=== PATIENT | female | born 1950 | race Caucasian/White ===

== ENCOUNTER → 2023-01-28 14:39 | Outpatient (CLI) | payer MEDICARE, OTHER, SELFPAY | PROVIDERS: PCP Student in an Organized Health Care Education/Training Program; Referring Provider Internal Medicine Critical Care Medicine; Visit Provider Internal Medicine Critical Care Medicine | DX: J44.9 Chronic obstructive pulmonary disease, unspecified (principal); F17.210 Nicotine dependence, cigarettes, uncomplicated; J98.8 Other specified respiratory disorders | CPT/HCPCS: 94060; 94726; 94729 ==

== ENCOUNTER 2023-06-21 16:22 | Emergency (ER) | payer MEDICARE, OTHER, SELFPAY ==
[2023-06-21 16:37] VITALS: BP 138/86; PULSE 86; RESP 20; TEMP 36.8; O2SAT 99; BMI 37.0
[2023-06-21 17:02] LABS: Bilirubin Urine UA NEGATIVE (NEGATIVE); Color Urine UA YELLOW; Glucose Urine UA NEGATIVE (Negative); Ketones Urine UA NEGATIVE (NEGATIVE); Leukocyte Esterase Urine UA 2+ (NEGATIVE); Nitrite Urine UA POSITIVE (Negative); Occult Blood Urine UA NEGATIVE (Negative); Protein Urine UA NEGATIVE (Negative)
[2023-06-21 17:03] LABS: Appearance Urine UA CLOUDY; pH Urine UA 5.5 (4.5-8.0)
[2023-06-21 17:10] LABS: Bacteria Urine Many (>30); Culture Indicated Urine Specimen Cultured; RBC Urine None Seen (0-5/HPF); Squamous Epithelial Cell Urine None Seen (0-5/HPF); WBC Urine 10-30/HPF (0-5/HPF)
[2023-06-21 17:10] LABS: Add Manual Diff / Slide Review NO; Basophils Absolute Auto 100 /uL (0-100); Basophils Percent Auto 1.5 % (0-2); Eosinophils Absolute Auto 400 /uL (0-450); Eosinophils Percent Auto 4.7 % (2-4); Hematocrit 37.6 % (36-46); Hemoglobin 12.9 g/dL (12.0-16.0); Lymphocytes Absolute Auto 1800 /uL (1100-4500); Lymphocytes Percent Auto 22.3 % (25-40); Mean Corpuscular HGB Conc 34.5 % (30-36); Mean Corpuscular Hemoglobin 29.6 PG (26-34); Mean Corpuscular Volume 85.9 fL (80-100); Monocytes Absolute Auto 700 /uL (0-900); Monocytes Percent Auto 8.2 % (3-14); Neutrophils Absolute Auto 5200 /uL (1500-7000); Neutrophils Percent Auto 63.3 % (50-75); Platelet Count 129 X10^3/uL (150-400); Red Blood Cell Count 4.37 X10^6/uL (4.0-5.2); Red Cell Distribution Width 24.3 % (11.6-14.8); White Blood Cell Count 8.2 X10^3/uL (4.5-11.0)
[2023-06-21 17:24] LABS: Anisocytosis 3+
[2023-06-21 17:25] LABS: Microcytosis 1+
[2023-06-21 18:03] LABS: Ammonia (NH3) 22 umol/L (9-30)
[2023-06-21 18:07] LABS: Alanine Aminotransferase 29 IU/L (<35); Albumin 4.5 g/dL (3.5-5.0); Albumin Globulin Ratio 1.1 (1.0-2.8); Alkaline Phosphatase 99 U/L (38-126); Aspartate Aminotransferase 36 IU/L (14-36); BUN Creatinine Ratio 24.3 (6-22); Bilirubin Total 0.7 mg/dL (0.2-1.3); Blood Urea Nitrogen 37 mg/dL (7-17); Calcium 10.2 mg/dL (8.4-10.2); Carbon Dioxide 24 mmol/L (22-32); Chloride 99 mmol/L (98-107); Estimated Glomerular Filt Rate 36 mL/min (>60); Globulin 4.1 g/dL (1.7-4.1); Glucose 161 mg/dL (80-110); HEMOLYSIS < 15 (0-50); Lipase 139 U/L (23-300); Sodium 134 mmol/L (137-145); Total Protein 8.6 g/dL (6.3-8.2)
[2023-06-21 18:11] LABS: Potassium 5.4 mmol/L (3.4-5.1)
== END 2023-06-21 19:09 | disposition left against medical advice (07) ==
PROVIDERS: Emergency Medicine; Emergency Provider Emergency Medicine; PCP Student in an Organized Health Care Education/Training Program
DX: R10.9 Unspecified abdominal pain (principal); K59.00 Constipation, unspecified
CPT/HCPCS: 36415; 80053; 81001; 82140; 83690; 85025; 87077; 87086; 87186; 99283

== ENCOUNTER 2023-07-07 07:32 | Day surgery (SDC) | payer MEDICARE, OTHER, SELFPAY ==
--- NOTE | 2023-07-07 | PATH_ITS ---
[facility] Accession Number: [id number] No. of containers..04 Tissue . 01 Material submitted: . PART A: colon - RIGHT COLON POLYP PART B: colon - HEPATIC FLEXURE POLYP PART C: colon - PROXIMAL TRANSVERSE COLON POLYPS PART D: colon - POLYP X2 @ 60 CM . 01 Diagnosis: A. Right Colon Polyp: Tubular adenoma. . B. Hepatic Flexure Polyp: Sessile serrated adenoma. . C. Proximal Transverse Colon Polyps: Tubular adenoma. Colonic mucosa with focal mucosal hyperplasia x1. . D. Colon Polyps at 60 cm: Tubular adenomas (two polyps removed). [facility] 07/12/2023 1525 Local . 01 Electronically signed: . Hao Eldridge MD, PhD, Pathologist NPI- [id number] . 01 Gross description: . Part A: RIGHT COLON POLYP: Received in formalin are 2 fragment(s) of cuenca, soft tissue measuring 0.1 x 0.1 x 0.1 cm to 0.4 x 0.2 x 0.2 cm submitted entirely in 1 cassette(s) Part B: HEPATIC FLEXURE POLYP: Received in formalin are 2 fragment(s) of cuenca, soft tissue measuring 0.2 x 0.2 x 0.2 cm to 0.4 x 0.3 x 0.2 cm submitted entirely in 1 cassette(s) Part C: PROXIMAL TRANSVERSE COLON POLYPS: Received in formalin are 2 fragment(s) of cuenca, soft tissue measuring 0.3 x 0.3 x 0.2 cm to 0.5 x 0.4 x 0.3 cm submitted entirely in 1 cassette(s) Part D: POLYP X2 @ 60 CM: Received in formalin are 3 fragment(s) of cuenca, soft tissue measuring 0.2 x 0.2 x 0.2 cm to 0.7 x 0.6 x 0.5 cm submitted entirely in 1 cassette(s) /[facility]MAIN 07/08/20232021 Local . 01 Pathologist provided ICD-10: D12.6, D50.0 . 01 CPT . 497357, 623046, 922558, 115106 Specimen Comment: A courtesy copy of this report has been sent to [phone] Performed at: 01 [facility] [address] [place] [id number] MD Alfonso Ritchie MD Phone: [phone]
[2023-07-07 09:16] VITALS: BP 129/65; PULSE 86; RESP 18; TEMP 36.3; O2SAT 96
--- NOTE | 2023-07-07 09:17 | PM.HP.1 ---
History of Present Illness History of Present Illness Date Patient Seen: 07/07/23 Chief complaint: SDC Narrative: Anemia with history of cryptogenic cirrhosis PFSH Social History marital status: Smoking Status: Current some day smoker Tobacco: How many years used: 56 Meds Home Medications and Allergies Home Medications Medication Instructions Recorded Confirmed Type levothyroxine 25 mcg tablet PO QAM ##0 07/24/16 History (Synthroid) metformin 500 mg tablet,extended PO QDAY ##0 07/24/16 History release 24 hr (Glucophage XR) pregabalin 50 mg capsule 50 mg PO DAILY 01/19/23 01/19/23 History cephalexin 500 mg capsule 500 mg PO BID #10 caps 06/23/23 Rx Allergies Allergy/AdvReac Type Severity Reaction Status Date / Time No Known Allergies Allergy Uncoded 01/19/23 08:57 Exam Narrative Exam Narrative: Oropharynx free of lesions Chest clear to auscultation percussion Cardiac exam reveals no S3 or murmur Assessment & Plan Assessment & Plan narrative: Anemia with history of cryptogenic cirrhosis need for EGD and colonoscopy. Risks, benefits, alternatives have been explained.
--- NOTE | 2023-07-07 09:18 | PM.OP.EC ---
Operative Date/Time/Diagnoses Date of procedure: 07/07/23 Pre-op diagnosis: See indication and findings Procedure & Clinicians Study performed: EGD and colonoscopy Indications: Anemia Procedure Notes Procedure in detail: After informed consent was obtained the patient was placed in left lateral decubitus position. The video upper scope was placed into the oropharynx and with the patient's help swallowed into the esophagus. The esophagus stomach and duodenum were carefully examined. On withdrawal, retroflexed view the GE junction was performed. The scope was removed. The patient tolerated procedure well. The patient was then turned to the colonoscope substituted. This was introduced the rectum slowly advanced cecum. Preparation was good. On slow withdrawal mucosa was carefully examined. The scope was removed. The patient tolerated procedure well. Blood loss none Complications none Sedation mac Findings EGD 1. Grade 1-2 distal esophageal varices 2. Area at the GE junction with spontaneous oozing of blood. This occurred even before I it passed it with the scope. After watching it for a while in seeing the small to moderate amount of blood in the stomach already I elected to place a band. This was performed without difficulty. This controlled the bleeding completely. 3. Gastropathy of portal hypertension 4. Normal duodenal bulb and sweep Colonoscopy 1. 8 mm right colon polyp hot snared and removed completely 2. 4 mm hepatic flexure polyp Jumbo biopsy x2 and removed completely 3. 2 1 cm semi pedunculated proximal transverse colon polyps hot snared and removed completely 4. Two semi sessile 4-5 mm polyps at 60 cm snared and removed completely 5. Moderate to severe left-sided diverticulosis Otherwise negative colonoscopy to cecum Jody will not need follow-up colonoscopy. Be in touch regarding her pathology. She should follow up with Dr. Ulloa to discuss whether further banding is necessary which is probably will be. Hematocrit should be followed as I believe that this lesion at the GE junction is probably the primary cause of her.
[2023-07-07] MEDS: LACTATED RINGERS 1,000 ML 42 ML IV (09:38)
[2023-07-07 10:43] VITALS: BP 140/82; PULSE 94; RESP 14; TEMP 36.9; O2SAT 98
[2023-07-07 10:49] VITALS: BP 133/56; PULSE 88; RESP 16; TEMP 36.9; O2SAT 97
[2023-07-07 11:05] VITALS: BP 134/67; PULSE 84; RESP 15; TEMP 36.8; O2SAT 98
== END 2023-07-07 11:18 | disposition home or self-care (01) ==
PROVIDERS: PCP Student in an Organized Health Care Education/Training Program; Referring Provider Internal Medicine Gastroenterology; Visit Provider Internal Medicine Gastroenterology
PROC: 0DJ08ZZ Inspection of Upper Intestinal Tract, Via Natural or Artificial Opening Endoscopic (ICD-10-PCS; CPT 43235; principal; 2023-07-07 09:30)
PROC: 0DJD8ZZ Inspection of Lower Intestinal Tract, Via Natural or Artificial Opening Endoscopic (ICD-10-PCS; CPT 45378; 2023-07-07 09:30)
DX: D50.9 Iron deficiency anemia, unspecified (principal); R18.8 Other ascites; K76.6 Portal hypertension; K31.89 Other diseases of stomach and duodenum; I85.01 Esophageal varices with bleeding; K57.30 Diverticulosis of large intestine without perforation or abscess without bleeding; Z87.19 Personal history of other diseases of the digestive system; D12.3 Benign neoplasm of transverse colon; D12.2 Benign neoplasm of ascending colon
CPT/HCPCS: 43244; 45385; 45380; J2704; J3010

== ENCOUNTER 2023-08-14 14:09 | Emergency (ER) | payer MEDICARE, OTHER, SELFPAY ==
[2023-08-14] VITALS (21 sets, daily range): BP systolic 127–155; BP diastolic 58–81; PULSE 80–95; RESP 13–18; TEMP 36.6; O2SAT 93–99; BMI 37.3
--- NOTE | 2023-08-14 14:18 | ED_ITS ---
HPI - General Adult <Rodney Vigil MD - Last Filed: 08/15/23 07:18> General Chief complaint: Abdominal Pain Stated complaint: Stage 4 liver disease Time Seen by Provider: 08/14/23 14:18 History of Present Illness HPI narrative: 73-year-old female with history of smoking, COPD, atypical ductal hyperplasia of right breast, on Lasix presents with malaise. History clarify from triage notes. Patient reports history of cirrhosis, though she is not sure how she got this. She denies substantial alcohol use. Patient states in the last several days, she has had general malaise with cough. She denies fevers or chills, though she has had intermittent epigastric pain, nonradiating, with unclear provoking or palliating factors. No shortness of breath. No chest or back or flank or other abdominal pain. No dysuria, hematuria, urinary frequency. No lightheadedness or syncope. No rash. No bleeding. No red or black in stool. History is somewhat limited beyond this. Spouse is at bedside as well. Per chart review, she has history of cryptogenic cirrhosis. She had recent GI assessment with EGD and colonoscopy. Results from 07/[address] Jeter: Findings EGD 1. Grade 1-2 distal esophageal varices 2. Area at the GE junction with spontaneous oozing of blood. This occurred even before I it passed it with the scope. After watching it for a while in seeing the small to moderate amount of blood in the stomach already I elected to place a band. This was performed without difficulty. This controlled the bleeding completely. 3. Gastropathy of portal hypertension 4. Normal duodenal bulb and sweep Colonoscopy 1. 8 mm right colon polyp hot snared and removed completely 2. 4 mm hepatic flexure polyp Jumbo biopsy x2 and removed completely 3. 2 1 cm semi pedunculated proximal transverse colon polyps hot snared and removed completely 4. Two semi sessile 4-5 mm polyps at 60 cm snared and removed completely 5. Moderate to severe left-sided diverticulosis Otherwise negative colonoscopy to cecum Jody will not need follow-up colonoscopy. Be in touch regarding her pathology. She should follow up with Dr. Ulloa to discuss whether further banding is necessary which is probably will be. Hematocrit should be followed as I believe that this lesion at the GE junction is probably the primary cause of her. Related Data Home Medications Medication Instructions Recorded Confirmed levothyroxine 25 mcg tablet 200 mcg PO QAM ##0 07/24/16 07/07/23 (Synthroid) pregabalin 50 mg capsule 50 mg PO DAILY 01/19/23 07/07/23 albuterol sulfate 90 mcg/actuation 2 puff inhalation DAILY 07/07/23 07/07/23 aerosol inhaler (ProAir HFA) doxepin 10 mg capsule 10 mg PO ONCE PM 07/07/23 07/07/23 furosemide 20 mg tablet 20 mg PO DAILY 07/07/23 07/07/23 sitagliptin phos 50 mg-metformin 50 - 1,000 tab PO DAILY 07/07/23 07/07/23 ER 1,000 mg tablet,extend rel 24h mp (Janumet XR) spironolactone 25 mg tablet 25 mg PO DAILY 07/07/23 07/07/23 tiotropium bromide 1.25 2 puff inhalation DAILY 07/07/23 07/07/23 mcg/actuation mist for inhalation (Spiriva Respimat) Previous Rx's Medication Instructions Recorded furosemide 40 mg tablet (Lasix) 40 mg PO BID #10 tabs 08/14/23 Allergies Allergy/AdvReac Type Severity Reaction Status Date / Time No Known Drug Allergies Allergy Verified 08/14/23 14:22 Review of Systems <Rodney Vigil MD - Last Filed: 08/15/23 07:18> Review of Systems Narrative: Constitutional: no fever, no chills Eyes: no visual disturbance, no discharge Ears, Nose, Mouth, Throat: no rhinorrhea, no sore throat Cardiovascular: no chest pain, no palpitations Respiratory: + cough, no shortness of breath Gastrointestinal: + abdominal pain, no vomiting, no diarrhea Genitourinary: no dysuria, no hematuria Musculoskeletal: no back pain, no neck stiffness Skin: no rash, no wound Neurological: no focal weakness, no focal numbness Patient History <Rodney Vigil MD - Last Filed: 08/15/23 07:18> Social History marital status: Smoking Status: Current some day smoker Tobacco: How many years used: 56 alcohol intake: never Smoking Status: Current some day smoker tobacco type: cigarettes alcohol intake frequency: other Substance Use Type: does not use Exam <Rodney Vigil MD - Last Filed: 08/15/23 07:18> Narrative Exam Narrative: Const: no acute distress, non toxic appearing; calm, conversant, pleasant Eyes: PERRLA, EOMI ENT: mucous membranes moist Neck: supple, non-tender Resp: no respiratory distress, clear to auscultation bilaterally Card: regular rate and rhythm, no murmurs Abd: non tender diffusely on multiple assessments, no rigidity or rebound or guarding; negative Grady's sign Back: no T or L spine tenderness, no CVA tenderness bilaterally Extrem: no deformities, no swelling bilateral lower extremities, 2+ distal pulses all extremities Neuro: ANOx4, food and beverage service manager grossly intact, grossly intact sensation and strength all extremities Skin: no rash, warm and dry POCUS by myself with trace ascites possible but no substantial peritoneal fluid collection in abdomen Initial Vital Signs Initial Vital Signs: Vital Signs Temperature 97.8 F 08/14/23 14:10 Pulse Rate 94 H 08/14/23 14:10 Respiratory Rate 13 08/14/23 14:10 Blood Pressure 131/66 08/14/23 14:10 Pulse Oximetry 97 08/14/23 14:10 Oxygen Delivery Method Room Air 08/14/23 14:10 <Kathie Roman DO - Last Filed: 08/15/23 05:21> Initial Vital Signs Initial Vital Signs: Vital Signs Temperature 97.8 F 08/14/23 14:10 Pulse Rate 94 H 08/14/23 14:10 Respiratory Rate 13 08/14/23 14:10 Blood Pressure 131/66 08/14/23 14:10 Pulse Oximetry 97 08/14/23 14:10 Oxygen Delivery Method Room Air 08/14/23 14:10 Course <Rodney Vigil MD - Last Filed: 08/15/23 07:18> Course Course Narrative: This patient presents with malaise, cough, epigastric pain in the setting of history as above including cryptogenic cirrhosis with recent GI assessment. She currently has benign abdomen, and appears afebrile, nontoxic. I have considered broad differential including but not limited to viral syndrome, pneumonia, bronchitis, electrolyte derangements, DELANEY, hepatorenal syndrome, ACS, SBP, intra-abdominal infection such as appendicitis, or cholecystitis, hepatitis, pancreatitis, peptic ulcer disease, gastritis, bleeding esophageal varices, among others. However, as above, she currently has benign abdomen, and in addition has minimal ascites on bedside ultrasound not amenable to paracentesis. In this setting, I am obtaining EKG, broad laboratory workup, chest x-ray, viral swab, and will closely reassessed. She declines any medications of any kind currently. EKG NSR without acute ischemia or immediately concerning interval prolongation on my review. Right bundle-branch block present. No recent for comparison. CBC with no leukocytosis, anemia, with thrombocytopenia above 100 in the setting of known liver disease. Chemistry with borderline hyponatremia, with hyperkalemia to 5.7 in the setting of elevated creatinine, though similar creatinine to early June. Bicarb mildly low at 19. AST mildly elevated. No ALT or alk-phos or bilirubin elevation. Lipase within normal limits. INR within normal limits. Troponin reassuring. Viral swab negative. Note urine dip performed by nursing staff with reassuring results, no glucose, ketones, blood, protein, nitrites, leukocyte esterase. Giving 1g Ca Glu IV, 20mg IV lasix, then reassessing chemistry and EKG. CT abdomen and pelvis with contrast ordered for further assessment. CXR radiology read below: FINDINGS: Surgical changes and devices: None. Lungs and pleura: Lungs are clear. No pleural effusions or pneumothorax. Mediastinum: Mediastinal contours appear normal. Heart size is enlarged. Bones and chest wall: No suspicious bony lesions. Overlying soft tissues appear unremarkable. IMPRESSION: Cardiomegaly without vascular congestion Approved by: Ashok Steel M.D. on 08/14/2023 at 15:06 CT radiology read below: FINDINGS: Lower thorax: Platelike atelectasis noted in the left lung base. Heart size normal. No hiatal hernia. Liver: Micro scalloping of the attic capsule noted associated with distension of the portal vein all consistent with hepatic cirrhosis. 1.5 cm left hepatic cyst without additional mass lesion. Biliary system: Cholecystectomy. No intra or extrahepatic bile duct dilation. Pancreas: Unremarkable without mass or inflammation evident. Spleen: Splenomegaly, 15 cm. Perisplenic varices noted. Adrenals: 1.5 cm ovoid low-density nodule associated with the right adrenal gland as well as 1.6 cm similar nodule associated with the left adrenal gland. Several additional smaller left adrenal nodules, all consistent with adenoma Reproductive system: Hysterectomy. Urinary system: Normal renal size and attenuation. No renal calculi, hydronephrosis, or solid mass present. Urinary bladder unremarkable. Gastrointestinal system: The bowel is unremarkable without evidence of bowel obstruction or inflammation. The stomach appears unremarkable. Several diverticula arise from the: Without evidence of diverticulitis Appendix: No findings to suggest acute appendicitis. Peritoneal spaces: No mesenteric or retroperitoneal adenopathy. No free air. No free fluid. Vasculature: The IVC, aorta and iliac vasculature are unremarkable. Abdominal wall: Abdominal wall intact without evidence of ventral or inguinal hernias. Musculoskeletal: Normal bone mineralization. No acute fractures. IMPRESSION: 1. No acute CT findings in the abdomen and pelvis. 2. Hepatic cirrhosis, splenomegaly and venous varices. No portal venous thrombosis. 3. Bilateral low-density adrenal nodules likely reflect adenomas Approved by: Ashok Steel M.D. on 08/14/2023 at 15:26 Trial of GI cocktail: no substantial response per patient, though she is also comfortable now. I suspect on review of medications that her spironolactone 100mg PO daily is contributing to her hyperkalemia, in setting of poor renal function. She denies taking potassium supplements. She does take 40 mg p.o. Lasix daily. I anticipate that if her potassium improved on repeat chemistry, along with reassuring repeat EKG, she may be stable for very close, 48 hour follow up with repeat chemistry and physician assessment. If her potassium does not clearly improve, she will need admission. If she is discharged, I have recommended the patient decrease spironolactone to 50 mg daily and increasing Lasix to 40 mg twice daily, recommending close follow up to reassess this. She understands plan, has benign abdomen on reassessment, and has no new concerns. Note a component of gastritis or less likely peptic ulcer disease could be contributing to her epigastric pain, with remainder of workup overall reassuring. Signed out to Dr. Roman at 6:20PM with plan to repeat chemistry, EKG around 7:30PM, with plan as above. Patient stable and fully understands plan. Orders Ordered: Discontinued Medications Al Hydrox/Mg Hydrox/Simethicone 20 ml/ Lidocaine HCl 15 ml 0 ml PO NOW ONE Stop: 08/14/23 16:56 Last Admin: 08/14/23 17:03 Dose: 35 ml Documented By: FRANCES Furosemide (Furosemide 40 Mg/4 Ml Vial) 40 mg IV NOW ONE Stop: 08/14/23 17:04 Last Admin: 08/14/23 17:09 Dose: 40 mg Documented By: FRANCES Sodium Chloride (Normal Saline 0.9%) 1,000 mls @ 1,000 mls/hr IV BOLUS PRN PRN Reason: Fluid replacement Last Infusion: 08/14/23 16:43 Dose: Infused Documented By: Admin: 08/14/23 15:11 Dose: 1,000 mls/hr Documented By: GIOVANNA Calcium Gluconate 4.65 meq/ (Sodium Chloride) 60 mls @ 180 mls/hr IV NOW ONE Stop: 08/14/23 17:22 Last Infusion: 08/14/23 17:52 Dose: Infused Documented By: Admin: 08/14/23 17:12 Dose: 180 mls/hr Documented By: FRANCES Vital Signs Vital signs: Vital Signs - 8 hr 08/14/23 14:10 08/14/23 14:21 08/14/23 14:21 Temperature 97.8 F Pulse Rate 94 H 94 H Respiratory Rate 13 Blood Pressure 131/66 131/66 Pulse Oximetry 97 98 Oxygen Delivery Method Room Air 08/14/23 14:30 08/14/23 14:31 08/14/23 14:31 Temperature Pulse Rate 88 86 Respiratory Rate Blood Pressure 137/58 L Pulse Oximetry 95 94 Oxygen Delivery Method 08/14/23 15:00 08/14/23 15:01 08/14/23 15:01 Temperature Pulse Rate 80 84 Respiratory Rate Blood Pressure 155/65 H Pulse Oximetry 97 97 Oxygen Delivery Method 08/14/23 15:20 08/14/23 15:20 08/14/23 15:30 Temperature Pulse Rate 95 H Respiratory Rate Blood Pressure 129/59 L 128/60 Pulse Oximetry 96 Oxygen Delivery Method 08/14/23 15:30 08/14/23 16:00 08/14/23 16:00 Temperature Pulse Rate 80 80 Respiratory Rate Blood Pressure 128/81 Pulse Oximetry 93 95 Oxygen Delivery Method 08/14/23 16:17 08/14/23 16:17 08/14/23 16:30 Temperature Pulse Rate 83 Respiratory Rate Blood Pressure 130/59 L 127/61 Pulse Oximetry 98 Oxygen Delivery Method 08/14/23 16:30 08/14/23 17:00 08/14/23 17:00 Temperature Pulse Rate 83 84 Respiratory Rate Blood Pressure 135/75 Pulse Oximetry 94 94 Oxygen Delivery Method 08/14/23 17:30 08/14/23 17:32 08/14/23 17:32 Temperature Pulse Rate 80 83 Respiratory Rate Blood Pressure 133/59 L Pulse Oximetry 97 97 Oxygen Delivery Method 08/14/23 18:00 08/14/23 18:00 08/14/23 18:11 Temperature Pulse Rate 83 Respiratory Rate Blood Pressure 138/64 149/69 H Pulse Oximetry 95 Oxygen Delivery Method 08/14/23 18:11 08/14/23 18:30 08/14/23 18:30 Temperature Pulse Rate 85 80 Respiratory Rate Blood Pressure 142/64 H Pulse Oximetry 99 97 Oxygen Delivery Method 08/14/23 19:00 08/14/23 19:01 08/14/23 19:01 Temperature Pulse Rate 87 88 Respiratory Rate Blood Pressure 130/61 Pulse Oximetry 96 97 Oxygen Delivery Method 08/14/23 19:30 Temperature Pulse Rate 88 Respiratory Rate 18 Blood Pressure Pulse Oximetry 98 Oxygen Delivery Method <Kathie Roman, - Last Filed: 08/15/23 05:21> Orders Ordered: Discontinued Medications Al Hydrox/Mg Hydrox/Simethicone 20 ml/ Lidocaine HCl 15 ml 0 ml PO NOW ONE Stop: 08/14/23 16:56 Last Admin: 08/14/23 17:03 Dose: 35 ml Documented By: FRANCES Furosemide (Furosemide 40 Mg/4 Ml Vial) 40 mg IV NOW ONE Stop: 08/14/23 17:04 Last Admin: 08/14/23 17:09 Dose: 40 mg Documented By: FRANCES Sodium Chloride (Normal Saline 0.9%) 1,000 mls @ 1,000 mls/hr IV BOLUS PRN PRN Reason: Fluid replacement Last Infusion: 08/14/23 16:43 Dose: Infused Documented By: Admin: 08/14/23 15:11 Dose: 1,000 mls/hr Documented By: GIOVANNA Calcium Gluconate 4.65 meq/ (Sodium Chloride) 60 mls @ 180 mls/hr IV NOW ONE Stop: 08/14/23 17:22 Last Infusion: 08/14/23 17:52 Dose: Infused Documented By: Admin: 08/14/23 17:12 Dose: 180 mls/hr Documented By: FRANCES Vital Signs Vital signs: Vital Signs - 8 hr 08/14/23 14:10 08/14/23 14:21 08/14/23 14:21 Temperature 97.8 F Pulse Rate 94 H 94 H Respiratory Rate 13 Blood Pressure 131/66 131/66 Pulse Oximetry 97 98 Oxygen Delivery Method Room Air 08/14/23 14:30 08/14/23 14:31 08/14/23 14:31 Temperature Pulse Rate 88 86 Respiratory Rate Blood Pressure 137/58 L Pulse Oximetry 95 94 Oxygen Delivery Method 08/14/23 15:00 08/14/23 15:01 08/14/23 15:01 Temperature Pulse Rate 80 84 Respiratory Rate Blood Pressure 155/65 H Pulse Oximetry 97 97 Oxygen Delivery Method 08/14/23 15:20 08/14/23 15:20 08/14/23 15:30 Temperature Pulse Rate 95 H Respiratory Rate Blood Pressure 129/59 L 128/60 Pulse Oximetry 96 Oxygen Delivery Method 08/14/23 15:30 08/14/23 16:00 08/14/23 16:00 Temperature Pulse Rate 80 80 Respiratory Rate Blood Pressure 128/81 Pulse Oximetry 93 95 Oxygen Delivery Method 08/14/23 16:17 08/14/23 16:17 08/14/23 16:30 Temperature Pulse Rate 83 Respiratory Rate Blood Pressure 130/59 L 127/61 Pulse Oximetry 98 Oxygen Delivery Method 08/14/23 16:30 08/14/23 17:00 08/14/23 17:00 Temperature Pulse Rate 83 84 Respiratory Rate Blood Pressure 135/75 Pulse Oximetry 94 94 Oxygen Delivery Method 08/14/23 17:30 08/14/23 17:32 08/14/23 17:32 Temperature Pulse Rate 80 83 Respiratory Rate Blood Pressure 133/59 L Pulse Oximetry 97 97 Oxygen Delivery Method 08/14/23 18:00 08/14/23 18:00 08/14/23 18:11 Temperature Pulse Rate 83 Respiratory Rate Blood Pressure 138/64 149/69 H Pulse Oximetry 95 Oxygen Delivery Method 08/14/23 18:11 08/14/23 18:30 08/14/23 18:30 Temperature Pulse Rate 85 80 Respiratory Rate Blood Pressure 142/64 H Pulse Oximetry 99 97 Oxygen Delivery Method 08/14/23 19:00 08/14/23 19:01 08/14/23 19:01 Temperature Pulse Rate 87 88 Respiratory Rate Blood Pressure 130/61 Pulse Oximetry 96 97 Oxygen Delivery Method 08/14/23 19:30 Temperature Pulse Rate 88 Respiratory Rate 18 Blood Pressure Pulse Oximetry 98 Oxygen Delivery Method Medical Decision Making <Rodney Vigil MD - Last Filed: 08/15/23 07:18> Lab Data 08/14/23 15:10 08/14/23 19:30 Labs: Lab Results 08/14/23 08/14/23 08/14/23 Range/Units 15:10 17:01 19:30 WBC 8.7 (4.5-11.0) X10^3/uL RBC 3.99 L (4.0-5.2) X10^6/uL Hgb 12.9 (12.0-16.0) g/dL Hct 37.9 (36-46) % MCV 94.8 (80-100) fL MCH 32.4 (26-34) PG MCHC 34.1 (30-36) % RDW 14.9 H (11.6-14.8) % Plt Count 107 L (150-400) X10^3/uL Neut % (Auto) 63.1 (50-75) % Lymph % (Auto) 20.2 L (25-40) % [place] % (Auto) 8.0 (3-14) % Eos % (Auto) 7.7 H (2-4) % Baso % (Auto) 1.0 (0-2) % Neut # (Auto) 5500 (5862-1498) /uL Lymph # (Auto) 1800 (7203-5211) /uL [place] # (Auto) 700 (0-900) /uL Eos # (Auto) 700 H (0-450) /uL Baso # (Auto) 100 (0-100) /uL PT 12.5 (9.4-12.5) SECONDS INR 1.1 (0.9-1.3) Sodium 135 L 136 L (137-145) mmol/L Potassium 5.7 H 5.3 H (3.4-5.1) mmol/L Chloride 107 103 (98-107) mmol/L Carbon Dioxide 19 L 26 (22-32) mmol/L BUN 34 H 33 H (7-17) mg/dL Creatinine 1.42 H 1.45 H (0.52-1.04) mg/dL Estimated GFR 40 L 39 L (>60) mL/min BUN/Creatinine Ratio 23.9 H 22.8 H (6-22) Glucose 175 H 231 H (80-110) mg/dL Calcium 9.7 9.6 (8.4-10.2) mg/dL Total Bilirubin 0.7 0.6 (0.2-1.3) mg/dL AST 40 H 36 (14-36) IU/L ALT 32 30 (<35) IU/L Alkaline Phosphatase 99 98 (38-126) U/L Troponin I < 0.012 (0.01-0.034) ng/mL Total Protein 8.0 7.9 (6.3-8.2) g/dL Albumin 4.3 4.2 (3.5-5.0) g/dL Globulin 3.7 3.7 (1.7-4.1) g/dL Albumin/Globulin Ratio 1.2 1.1 (1.0-2.8) Lipase 138 (23-300) U/L SARS-CoV-2 (PCR) Negative (Negative) Influenza A (RT-PCR) Flu a negative (NEGATIVE) Influenza B (RT-PCR) Flu b negative (NEGATIVE) RSV (PCR) Negative (Negative) Urine Dip Bedside Urine Glucose Negative Bedside Urine Bilirubin - Negative Bedside Urine Ketone - Negative Urine Specific [place] 1.020 Bedside Urine Occult Blood - Negative Bedside Urine pH 6.0 Bedside Urine Protein - Negative Bedside Urine Urobilinogen - Negative Bedside Urine Nitrite - Negative Bedside Urine Leukocytes - Negative Esterase Point of care testing: Urine Dip Bedside Urine Glucose Negative Bedside Urine Bilirubin - Negative Bedside Urine Ketone - Negative Urine Specific [place] 1.020 Bedside Urine Occult Blood - Negative Bedside Urine pH 6.0 Bedside Urine Protein - Negative Bedside Urine Urobilinogen - Negative Bedside Urine Nitrite - Negative Bedside Urine Leukocytes - Negative Esterase <Kathie Roman, DO - Last Filed: 08/15/23 05:21> Lab Data Labs: Lab Results 08/14/23 08/14/23 08/14/23 Range/Units 15:10 17:01 19:30 WBC 8.7 (4.5-11.0) X10^3/uL RBC 3.99 L (4.0-5.2) X10^6/uL Hgb 12.9 (12.0-16.0) g/dL Hct 37.9 (36-46) % MCV 94.8 (80-100) fL MCH 32.4 (26-34) PG MCHC 34.1 (30-36) % RDW 14.9 H (11.6-14.8) % Plt Count 107 L (150-400) X10^3/uL Neut % (Auto) 63.1 (50-75) % Lymph % (Auto) 20.2 L (25-40) % [place] % (Auto) 8.0 (3-14) % Eos % (Auto) 7.7 H (2-4) % Baso % (Auto) 1.0 (0-2) % Neut # (Auto) 5500 (1124-0585) /uL Lymph # (Auto) 1800 (3884-5272) /uL [place] # (Auto) 700 (0-900) /uL Eos # (Auto) 700 H (0-450) /uL Baso # (Auto) 100 (0-100) /uL PT 12.5 (9.4-12.5) SECONDS INR 1.1 (0.9-1.3) Sodium 135 L 136 L (137-145) mmol/L Potassium 5.7 H 5.3 H (3.4-5.1) mmol/L Chloride 107 103 (98-107) mmol/L Carbon Dioxide 19 L 26 (22-32) mmol/L BUN 34 H 33 H (7-17) mg/dL Creatinine 1.42 H 1.45 H (0.52-1.04) mg/dL Estimated GFR 40 L 39 L (>60) mL/min BUN/Creatinine Ratio 23.9 H 22.8 H (6-22) Glucose 175 H 231 H (80-110) mg/dL Calcium 9.7 9.6 (8.4-10.2) mg/dL Total Bilirubin 0.7 0.6 (0.2-1.3) mg/dL AST 40 H 36 (14-36) IU/L ALT 32 30 (<35) IU/L Alkaline Phosphatase 99 98 (38-126) U/L Troponin I < 0.012 (0.01-0.034) ng/mL Total Protein 8.0 7.9 (6.3-8.2) g/dL Albumin 4.3 4.2 (3.5-5.0) g/dL Globulin 3.7 3.7 (1.7-4.1) g/dL Albumin/Globulin Ratio 1.2 1.1 (1.0-2.8) Lipase 138 (23-300) U/L SARS-CoV-2 (PCR) Negative (Negative) Influenza A (RT-PCR) Flu a negative (NEGATIVE) Influenza B (RT-PCR) Flu b negative (NEGATIVE) RSV (PCR) Negative (Negative) Urine Dip Bedside Urine Glucose Negative Bedside Urine Bilirubin - Negative Bedside Urine Ketone - Negative Urine Specific [place] 1.020 Bedside Urine Occult Blood - Negative Bedside Urine pH 6.0 Bedside Urine Protein - Negative Bedside Urine Urobilinogen - Negative Bedside Urine Nitrite - Negative Bedside Urine Leukocytes - Negative Esterase Point of care testing: Urine Dip Bedside Urine Glucose Negative Bedside Urine Bilirubin - Negative Bedside Urine Ketone - Negative Urine Specific [place] 1.020 Bedside Urine Occult Blood - Negative Bedside Urine pH 6.0 Bedside Urine Protein - Negative Bedside Urine Urobilinogen - Negative Bedside Urine Nitrite - Negative Bedside Urine Leukocytes - Negative Esterase ECG Data Attestation: I personally reviewed and interpreted this ECG as follows: Interpretation: EKG 2. Sinus rhythm with first-degree AV block with a right bundle-branch block rate of 90 1p are 212, QRS of 130 QTC of 506. Prior EKG was reviewed with no acute changes. MDM Narrative Medical decision making narrative: 08/14/2023 Dr. Roman: Patient signed out to myself by Dr. Vigil, patient seen and independently evaluated by myself. 73-year-old female history of smoking, COPD, atypical ductal hyperplasia right breast and known cirrhosis. Patient was signed out while awaiting repeat EKG loads does not show any new acute or dynamic changes. As well as repeat labs which show a decrease in potassium and renal function appears stable from prior. Patient is felt safe for discharge but with the adjustments to medications including reducing her spironolactone to 50 mg daily from 100 mg and increasing Lasix to 40 mg twice daily with short term follow-up. Patient's CBC is overall appropriate, coags appropriate, sodium is 136 with potassium of 5 3 down from 5 7, creatinine 1.45, CO2 is 26 with a BUN of 33, glucose of 231 and LFTs are overall appropriate. Patient has a negative COVID/influenza/RSV. CT findings show cirrhosis splenomegaly venous varices no portal venous thrombosis. Bilateral low-density adrenal nodules likely adenomas. But no other acute findings. No significant cirrhosis. Vitals overall today appear quite appropriate. Reviewed patient's findings with myself. All questions were answered. They have spironolactone 25 mg tablets so we will take 2 tablets instead of 4. Sent prescription to [facility] in [place]. Reviewed return precautions plan for repeat labs in the next 2 days. patient ambulating in the department she feels improved. She would family at bedside are both aware to follow up labs. Discharge Plan Departure Patient Disposition: Home Clinical Impression: Serum potassium elevated Activity Restrictions/Additional Instructions: It was a pleasure taking care of you today. It is important to fully read and understand the below. Please ask us if you have any questions. We found your potassium was high today. As discussed, it is extremely important you repeat your chemistry within 48 hours and see a doctor then. Please reduce your spironolactone to a total of 50 mg(2 tablets) once daily. Please increase your Lasix to 40 mg twice daily. Discuss this with your primary doctor as well and follow up for repeat labs in 2 days. A prescription for the lasix was sent to [facility] in [place]. No tests or assessments are perfect, and your condition could manager of change time. If your symptoms change or worsen, it is very important you immediately seek medical care. If you have any new or worsening pain, lightheadedness or passing out, feeling your heart beating funny, shortness of breath, fever, vomiting, confusion, numbness, weakness, or anything else that concerns you, please immediately seek medical care. If you have been prescribed any medications: please read the drug package inserts on how to properly use the medication and any potential side effects. If you had labs (blood tests) or imaging (CT scan or x-rays) done during your visit: please follow up on the results of these with your primary care doctor, as discussed. In addition, please know the results we received today may be preliminary. Our usual practice is to follow up on tests within a few days of a patient's discharge from the Emergency Department and notify you of any changes. These may lead to changes to your treatment plan. However, the best way to obtain and interpret these test results is through your Primary Care Provider. If you need to update your contact information, please stop by the front end driver and alert the Registration personnel before you leave the Emergency Department. Thank you for the opportunity to participate in your healthcare. We are always here and happy to see you in the future. --- PLEASE TAKE THE ATTACHED IMAGING TO YOUR DOCTORS: CXR radiology read below: FINDINGS: Surgical changes and devices: None. Lungs and pleura: Lungs are clear. No pleural effusions or pneumothorax. Mediastinum: Mediastinal contours appear normal. Heart size is enlarged. Bones and chest wall: No suspicious bony lesions. Overlying soft tissues appear unremarkable. IMPRESSION: Cardiomegaly without vascular congestion Approved by: Ashok Steel M.D. on 08/14/2023 at 15:06 CT radiology read below: FINDINGS: Lower thorax: Platelike atelectasis noted in the left lung base. Heart size normal. No hiatal hernia. Liver: Micro scalloping of the attic capsule noted associated with distension of the portal vein all consistent with hepatic cirrhosis. 1.5 cm left hepatic cyst without additional mass lesion. Biliary system: Cholecystectomy. No intra or extrahepatic bile duct dilation. Pancreas: Unremarkable without mass or inflammation evident. Spleen: Splenomegaly, 15 cm. Perisplenic varices noted. Adrenals: 1.5 cm ovoid low-density nodule associated with the right adrenal gland as well as 1.6 cm similar nodule associated with the left adrenal gland. Several additional smaller left adrenal nodules, all consistent with adenoma Reproductive system: Hysterectomy. Urinary system: Normal renal size and attenuation. No renal calculi, hydronephrosis, or solid mass present. Urinary bladder unremarkable. Gastrointestinal system: The bowel is unremarkable without evidence of bowel obstruction or inflammation. The stomach appears unremarkable. Several diverticula arise from the: Without evidence of diverticulitis Appendix: No findings to suggest acute appendicitis. Peritoneal spaces: No mesenteric or retroperitoneal adenopathy. No free air. No free fluid. Vasculature: The IVC, aorta and iliac vasculature are unremarkable. Abdominal wall: Abdominal wall intact without evidence of ventral or inguinal hernias. Musculoskeletal: Normal bone mineralization. No acute fractures. IMPRESSION: 1. No acute CT findings in the abdomen and pelvis. 2. Hepatic cirrhosis, splenomegaly and venous varices. No portal venous thrombosis. 3. Bilateral low-density adrenal nodules likely reflect adenomas Approved by: Ashok Steel M.D. on 08/14/2023 at 15:26 Prescriptions: New furosemide [Lasix] 40 mg tablet 40 mg PO BID Qty: 10 0RF No Action levothyroxine [Synthroid] 25 mcg tablet 200 mcg PO QAM Qty: 0 doxepin 10 mg capsule 10 mg PO ONCE PM spironolactone 25 mg Tablet 25 mg PO DAILY furosemide 20 mg tablet 20 mg PO DAILY albuterol sulfate [ProAir HFA] 90 mcg/actuation HFA aerosol inhaler 2 puff INHALATION DAILY Patient Comments: [NO ORIGINAL SIG] Janumet XR 50-1,000 mg tablet, ER multiphase 24 hr 50 - 1,000 tab PO DAILY Spiriva Respimat 1.25 mcg/actuation mist 2 puff inhalation DAILY pregabalin 50 mg capsule 50 mg PO DAILY Referrals: Leora Fluton MD [Primary Care Provider] - Stand Alone Forms: Patient Portal/API
--- NOTE | 2023-08-14 14:37 | DI.RAD.S_ITS ---
PROCEDURE: XR CHEST 1V INDICATIONS: weakness TECHNIQUE: One view of the chest was acquired. COMPARISON: [facility], , CHEST 2 VIEW, 07/21/2016, 13:23. FINDINGS: Surgical changes and devices: None. Lungs and pleura: Lungs are clear. No pleural effusions or pneumothorax. Mediastinum: Mediastinal contours appear normal. Heart size is enlarged. Bones and chest wall: No suspicious bony lesions. Overlying soft tissues appear unremarkable. IMPRESSION: Cardiomegaly without vascular congestion Approved by: Ashok Steel M.D. on 08/14/2023 at 15:06
[2023-08-14] MEDS: SODIUM CHLORIDE 0.9% 1,000 ML 1000 ML IV (15:11)
[2023-08-14 15:20] LABS: Add Manual Diff / Slide Review NO; Basophils Absolute Auto 100 /uL (0-100); Eosinophils Absolute Auto 700 /uL (0-450); Eosinophils Percent Auto 7.7 % (2-4); Hematocrit 37.9 % (36-46); Hemoglobin 12.9 g/dL (12.0-16.0); Lymphocytes Absolute Auto 1800 /uL (1100-4500); Lymphocytes Percent Auto 20.2 % (25-40); Mean Corpuscular HGB Conc 34.1 % (30-36); Mean Corpuscular Hemoglobin 32.4 PG (26-34); Mean Corpuscular Volume 94.8 fL (80-100); Monocytes Absolute Auto 700 /uL (0-900); Neutrophils Absolute Auto 5500 /uL (1500-7000); Neutrophils Percent Auto 63.1 % (50-75); Platelet Count 107 X10^3/uL (150-400); Red Blood Cell Count 3.99 X10^6/uL (4.0-5.2); Red Cell Distribution Width 14.9 % (11.6-14.8); White Blood Cell Count 8.7 X10^3/uL (4.5-11.0)
[2023-08-14 15:25] LABS: INR 1.1 (0.9-1.3); Prothrombin Time 12.5 SECONDS (9.4-12.5)
[2023-08-14 15:30] LABS: Alanine Aminotransferase 32 IU/L (<35); Albumin 4.3 g/dL (3.5-5.0); Albumin Globulin Ratio 1.2 (1.0-2.8); Alkaline Phosphatase 99 U/L (38-126); Aspartate Aminotransferase 40 IU/L (14-36); BUN Creatinine Ratio 23.9 (6-22); Bilirubin Total 0.7 mg/dL (0.2-1.3); Blood Urea Nitrogen 34 mg/dL (7-17); Calcium 9.7 mg/dL (8.4-10.2); Carbon Dioxide 19 mmol/L (22-32); Chloride 107 mmol/L (98-107); Estimated Glomerular Filt Rate 40 mL/min (>60); Globulin 3.7 g/dL (1.7-4.1); Glucose 175 mg/dL (80-110); HEMOLYSIS < 15 (0-50); Lipase 138 U/L (23-300); Sodium 135 mmol/L (137-145)
[2023-08-14 15:33] LABS: Potassium 5.7 mmol/L (3.4-5.1)
[2023-08-14 15:42] LABS: Troponin I < 0.012 ng/mL (0.01-0.034)
--- NOTE | 2023-08-14 15:54 | DI.CT.S_ITS ---
PROCEDURE: CT ABDOMEN PELVIS W CON INDICATIONS: epigastric pain TECHNIQUE: After the administration of intravenous contrast, axial sections acquired from the lung bases to the pubic symphysis. Coronal and sagittal reformats were performed. For radiation dose reduction, the following was used: automated exposure control, adjustment of mA and/or kV according to patient size. COMPARISON: None. FINDINGS: Lower thorax: Platelike atelectasis noted in the left lung base. Heart size normal. No hiatal hernia. Liver: Micro scalloping of the attic capsule noted associated with distension of the portal vein all consistent with hepatic cirrhosis. 1.5 cm left hepatic cyst without additional mass lesion. Biliary system: Cholecystectomy. No intra or extrahepatic bile duct dilation. Pancreas: Unremarkable without mass or inflammation evident. Spleen: Splenomegaly, 15 cm. Perisplenic varices noted. Adrenals: 1.5 cm ovoid low-density nodule associated with the right adrenal gland as well as 1.6 cm similar nodule associated with the left adrenal gland. Several additional smaller left adrenal nodules, all consistent with adenoma Reproductive system: Hysterectomy. Urinary system: Normal renal size and attenuation. No renal calculi, hydronephrosis, or solid mass present. Urinary bladder unremarkable. Gastrointestinal system: The bowel is unremarkable without evidence of bowel obstruction or inflammation. The stomach appears unremarkable. Several diverticula arise from the: Without evidence of diverticulitis Appendix: No findings to suggest acute appendicitis. Peritoneal spaces: No mesenteric or retroperitoneal adenopathy. No free air. No free fluid. Vasculature: The IVC, aorta and iliac vasculature are unremarkable. Abdominal wall: Abdominal wall intact without evidence of ventral or inguinal hernias. Musculoskeletal: Normal bone mineralization. No acute fractures. IMPRESSION: 1. No acute CT findings in the abdomen and pelvis. 2. Hepatic cirrhosis, splenomegaly and venous varices. No portal venous thrombosis. 3. Bilateral low-density adrenal nodules likely reflect adenomas Approved by: Ashok Steel M.D. on 08/14/2023 at 15:26
[2023-08-14] MEDS: MAG HYDROX/ALUMINUM/SIMETH SUS 20 ML, LIDOCAINE VISCOUS 2% 15 ML PO (17:03)
[2023-08-14] MEDS: FUROSEMIDE 40 MG/4 ML VIAL IV (17:09)
[2023-08-14] MEDS: CALCIUM GLUCONATE 4.65 MEQ in SODIUM CHLORIDE 0.9% 50 ML 180 MEQ IV (17:12)
[2023-08-14 17:43] LABS: COVID-19 CEPHEID 4-PLEX PCR Negative (Negative); Influenza A - CEPHEID Flu A NEGATIVE (NEGATIVE); Influenza B - CEPHEID Flu B NEGATIVE (NEGATIVE); Respiratory Syncytial Virus Negative (Negative)
--- NOTE | 2023-08-14 19:19 | PC.NURSE ---
pt sitting up on stretcher, states she is ready to go home, updated pt that we were waiting for lab redraw and results, at bedside
[2023-08-14 19:56] LABS: Alanine Aminotransferase 30 IU/L (<35); Albumin 4.2 g/dL (3.5-5.0); Albumin Globulin Ratio 1.1 (1.0-2.8); Alkaline Phosphatase 98 U/L (38-126); Aspartate Aminotransferase 36 IU/L (14-36); BUN Creatinine Ratio 22.8 (6-22); Bilirubin Total 0.6 mg/dL (0.2-1.3); Blood Urea Nitrogen 33 mg/dL (7-17); Calcium 9.6 mg/dL (8.4-10.2); Carbon Dioxide 26 mmol/L (22-32); Chloride 103 mmol/L (98-107); Estimated Glomerular Filt Rate 39 mL/min (>60); Globulin 3.7 g/dL (1.7-4.1); Glucose 231 mg/dL (80-110); HEMOLYSIS < 15 (0-50); Potassium 5.3 mmol/L (3.4-5.1); Sodium 136 mmol/L (137-145); Total Protein 7.9 g/dL (6.3-8.2)
== END 2023-08-14 20:43 | disposition home or self-care (01) ==
PROVIDERS: Emergency Medicine; Emergency Provider Emergency Medicine; PCP Student in an Organized Health Care Education/Training Program
DX: E87.5 Hyperkalemia (principal); Z20.822 Contact with and (suspected) exposure to COVID-19
CPT/HCPCS: 0241U; 36415; 71045; 74177; 80053; 81003; 83690; 84484; 85025; 85610; 93005; 96361; 96374; 99284; J0612; J1940; Q9967

== ENCOUNTER 2023-11-25 18:25 | Emergency (ER) | payer MEDICARE, OTHER, SELFPAY ==
[2023-11-25] VITALS (8 sets, daily range): BP systolic 137–214; BP diastolic 63–95; PULSE 78–90; RESP 18–22; TEMP 36.8; O2SAT 93–98; BMI 38.7
--- NOTE | 2023-11-25 20:36 | ED.GENADULT ---
HPI - General Adult General Chief complaint: Abdominal Pain Stated complaint: dr frost for centesis Time Seen by Provider: 11/25/23 20:00 Source: patient Mode of arrival: Ambulatory History of Present Illness HPI narrative: Patient is a 73-year-old female. Has a history of liver disease. Has had a paracentesis in the past. Was sent in the emergency department by her advised she come to the emergency department. For evaluation of a paracentesis. Patient has had sharp abdominal discomfort that happens occasionally for several months now. She states she had it today. She has had it since arrival here to the ER. States it is a sharp pain like being stabbed. When it does happen it lasts for seconds then resolves. No change in bowel habits. No urinary symptoms. No fevers. No vomiting. She does feel like her abdomen is somewhat distended. She contacted her Related Data Home Medications Medication Instructions Recorded Confirmed levothyroxine 25 mcg tablet 200 mcg PO QAM ##0 07/24/16 07/07/23 (Synthroid) pregabalin 50 mg capsule 50 mg PO DAILY 01/19/23 07/07/23 albuterol sulfate 90 mcg/actuation 2 puff inhalation DAILY 07/07/23 07/07/23 aerosol inhaler (ProAir HFA) doxepin 10 mg capsule 10 mg PO ONCE PM 07/07/23 07/07/23 furosemide 20 mg tablet 20 mg PO DAILY 07/07/23 07/07/23 sitagliptin phos 50 mg-metformin 50 - 1,000 tab PO DAILY 07/07/23 07/07/23 ER 1,000 mg tablet,extend rel 24h mp (Janumet XR) spironolactone 25 mg tablet 25 mg PO DAILY 07/07/23 07/07/23 tiotropium bromide 1.25 2 puff inhalation DAILY 07/07/23 07/07/23 mcg/actuation mist for inhalation (Spiriva Respimat) Previous Rx's Medication Instructions Recorded furosemide 40 mg tablet (Lasix) 40 mg PO BID #10 tabs 08/14/23 Allergies Allergy/AdvReac Type Severity Reaction Status Date / Time No Known Drug Allergies Allergy Verified 08/14/23 14:22 Review of Systems Review of Systems ROS Unobtainable: All systems reviewed & are unremarkable except as noted in HPI and below Patient History Social History marital status: Smoking Status: Current some day smoker Tobacco: How many years used: 56 alcohol intake: never Smoking Status: Current some day smoker tobacco type: cigarettes alcohol intake frequency: other Substance Use Type: does not use Exam Initial Vital Signs Initial Vital Signs: Vital Signs Temperature 98.3 F 11/25/23 18:30 Pulse Rate 90 11/25/23 18:30 Respiratory Rate 22 11/25/23 18:30 Blood Pressure 140/63 11/25/23 18:30 Pulse Oximetry 98 11/25/23 18:30 Oxygen Delivery Method Room Air 11/25/23 18:30 Const General: comfortable and No ill appearing HENMT Head: normal to inspection and normocephalic Resp Effort & Inspection: normal respiratory effort GI Inspection: non-distended Palpation: soft, No firm, No guarding, No rigid and No tender Skin General: no rashes or lesions noted Neuro General: patient alert, patient awake, patient oriented x3 and moves all extremities Course Vital Signs Vital signs: Vital Signs - 8 hr 11/25/23 19:43 11/25/23 19:44 11/25/23 19:44 Pulse Rate 90 Respiratory Rate Blood Pressure 137/64 Pulse Oximetry 95 95 Oxygen Delivery Method Oxygen Flow Rate 11/25/23 20:00 11/25/23 20:01 11/25/23 20:01 Pulse Rate 90 89 Respiratory Rate Blood Pressure 156/67 H Pulse Oximetry 95 93 Oxygen Delivery Method Oxygen Flow Rate 2 11/25/23 20:30 11/25/23 20:31 11/25/23 20:31 Pulse Rate 88 86 Respiratory Rate Blood Pressure 214/95 H Pulse Oximetry 94 94 Oxygen Delivery Method Oxygen Flow Rate 11/25/23 21:09 Pulse Rate 78 Respiratory Rate 18 Blood Pressure 172/84 H Pulse Oximetry 94 Oxygen Delivery Method Room Air Oxygen Flow Rate Medical Decision Making MDM Narrative Medical decision making narrative: A bedside ultrasound did not show any ascites. She has a soft abdominal exam. No specific tenderness to palpation. Her vital signs are unremarkable except for hypertension. She was afebrile. Not vomiting. The sharp discomfort that brought her into the emergency department today has been off it on with the past several months. That a discussion with her and her at bedside. There was no indication for paracentesis today. We discussed the possibility of checking lab work although I do not think that that would specifically change her ultimate disposition. We discussed CT scan. Discussed would be looking for and a CT scan. I have low suspicion that this is a bowel obstruction, appendicitis, kidney stone, diverticulitis or other acute surgical issues. Mostly this is because of the discomfort has been going on for the past several months and if feel that these conditions are unlikely. Patient and agree with this. 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 Will discharge patient home with return precautions and follow-up instructions. She expressed understanding and agreement. Discharge Plan Departure Patient Disposition: Home Clinical Impression: Abdominal pain Instructions: DI for Abdominal Pain-Adult Activity Restrictions/Additional Instructions: Continue to take all of your medications as directed. Keep all of your scheduled medical appointments and having your labs drawn later this week. Return to the emergency department for new or worsening symptoms. Prescriptions: No Action levothyroxine [Synthroid] 25 mcg tablet 200 mcg PO QAM Qty: 0 doxepin 10 mg capsule 10 mg PO ONCE PM spironolactone 25 mg Tablet 25 mg PO DAILY furosemide 20 mg tablet 20 mg PO DAILY albuterol sulfate [ProAir HFA] 90 mcg/actuation HFA aerosol inhaler 2 puff INHALATION DAILY Patient Comments: [NO ORIGINAL SIG] Janumet XR 50-1,000 mg tablet, ER multiphase 24 hr 50 - 1,000 tab PO DAILY Spiriva Respimat 1.25 mcg/actuation mist 2 puff inhalation DAILY furosemide [Lasix] 40 mg tablet 40 mg PO BID Qty: 10 0RF pregabalin 50 mg capsule 50 mg PO DAILY Referrals: Leora Fulton MD [Primary Care Provider] - Stand Alone Forms: Patient Portal/API
== END 2023-11-25 21:08 | disposition home or self-care (01) ==
PROVIDERS: Emergency Provider Emergency Medicine; PCP Student in an Organized Health Care Education/Training Program
DX: R10.9 Unspecified abdominal pain (principal)
CPT/HCPCS: 99281

== ENCOUNTER 2023-12-02 16:19 | Emergency (ER) | payer MEDICARE, OTHER, SELFPAY ==
[2023-12-02] VITALS (12 sets, daily range): BP systolic 116–160; BP diastolic 56–72; PULSE 75–90; RESP 12–15; TEMP 36.2; O2SAT 83–97; BMI 37.5
[2023-12-02 17:06] LABS: Add Manual Diff / Slide Review NO; Basophils Absolute Auto 100 /uL (0-100); Eosinophils Absolute Auto 700 /uL (0-450); Eosinophils Percent Auto 7.3 % (2-4); Hematocrit 39.7 % (36-46); Hemoglobin 13.7 g/dL (12.0-16.0); Lymphocytes Absolute Auto 1700 /uL (1100-4500); Lymphocytes Percent Auto 18.9 % (25-40); Mean Corpuscular HGB Conc 34.4 % (30-36); Mean Corpuscular Hemoglobin 33.5 PG (26-34); Mean Corpuscular Volume 97.5 fL (80-100); Monocytes Absolute Auto 700 /uL (0-900); Monocytes Percent Auto 7.5 % (3-14); Neutrophils Absolute Auto 6000 /uL (1500-7000); Neutrophils Percent Auto 65.3 % (50-75); Platelet Count 120 X10^3/uL (150-400); Red Blood Cell Count 4.07 X10^6/uL (4.0-5.2); Red Cell Distribution Width 14.2 % (11.6-14.8); White Blood Cell Count 9.2 X10^3/uL (4.5-11.0)
[2023-12-02 17:16] LABS: Lactate (Lactic Acid) 1.9 mmol/L (0.7-2.1)
[2023-12-02 17:24] LABS: Alanine Aminotransferase 27 IU/L (<35); Albumin 4.4 g/dL (3.5-5.0); Albumin Globulin Ratio 1.2 (1.0-2.8); Alkaline Phosphatase 126 U/L (38-126); Aspartate Aminotransferase 33 IU/L (14-36); BUN Creatinine Ratio 20.2 (6-22); Bilirubin Total 0.7 mg/dL (0.2-1.3); Blood Urea Nitrogen 35 mg/dL (7-17); Calcium 9.2 mg/dL (8.4-10.2); Carbon Dioxide 26 mmol/L (22-32); Chloride 96 mmol/L (98-107); Creatine Kinase 47 U/L (30-135); Estimated Glomerular Filt Rate 31 mL/min (>60); Globulin 3.6 g/dL (1.7-4.1); HEMOLYSIS < 15 (0-50); Sodium 129 mmol/L (137-145)
[2023-12-02 17:25] LABS: Potassium 5.6 mmol/L (3.4-5.1)
[2023-12-02 17:26] LABS: Glucose 618 mg/dL (80-110)
[2023-12-02 17:31] LABS: Ketones (Beta-Hydroxybutyrate) < 0.20 mmol/L (<0.27)
[2023-12-02 17:36] LABS: Troponin I < 0.012 ng/mL (0.01-0.034)
[2023-12-02] MEDS: SODIUM CHLORIDE 0.9% 1,000 ML 1000 ML IV (18:35)
--- NOTE | 2023-12-02 19:59 | EKG_ITS ---
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
--- NOTE | 2023-12-02 21:12 | ED_ITS ---
HPI - Recheck/Abnormal Lab/Rx General Chief Complaint: Recheck/Abnormal Lab/Rx Stated Complaint: sent by Dr for high blood sugar Time Seen by Provider: 12/02/23 16:58 Source: patient Mode of arrival: Ambulatory Limitations: no limitations History of Present Illness HPI narrative: 73-year-old female with known type 2 diabetes, history of liver disease with complaint of elevated glucose. Patient states she had her Janumet decreased from 2 tablets to 1 tablet proximally a month ago. She has not been checking her glucose at home. She states she has been asymptomatic she denies fevers chills no headache, no vision changes no chest pain no shortness of breath no nausea or vomiting no GI or urinary symptoms, no polyuria or polydipsia. She denies any new swelling of extremities. She states she feels normal. She states that she had labs drawn for her liver doctor who contacted her and told her she was hyperglycemic and told to come to the ED. patient states her Janumet was decreased because her doctor said her kidney function was a little bit off. She denies any drug allergies. She has not on insulin. Related Data Home Medications Medication Instructions Recorded Confirmed levothyroxine 25 mcg tablet 200 mcg PO QAM ##0 07/24/16 07/07/23 (Synthroid) pregabalin 50 mg capsule 50 mg PO DAILY 01/19/23 07/07/23 albuterol sulfate 90 mcg/actuation 2 puff inhalation DAILY 07/07/23 07/07/23 aerosol inhaler (ProAir HFA) doxepin 10 mg capsule 10 mg PO ONCE PM 07/07/23 07/07/23 furosemide 20 mg tablet 20 mg PO DAILY 07/07/23 07/07/23 sitagliptin phos 50 mg-metformin 50 - 1,000 tab PO DAILY 07/07/23 07/07/23 ER 1,000 mg tablet,extend rel 24h mp (Janumet XR) spironolactone 25 mg tablet 25 mg PO DAILY 07/07/23 07/07/23 tiotropium bromide 1.25 2 puff inhalation DAILY 07/07/23 07/07/23 mcg/actuation mist for inhalation (Spiriva Respimat) Previous Rx's Medication Instructions Recorded furosemide 40 mg tablet (Lasix) 40 mg PO BID #10 tabs 08/14/23 blood sugar diagnostic (CareTouch #50 ea 12/02/23 Test Strip) blood-glucose meter (CareTouch #1 ea 12/02/23 Glucose Monitoring System kit) Allergies Allergy/AdvReac Type Severity Reaction Status Date / Time No Known Drug Allergies Allergy Verified 12/02/23 16:27 Review of Systems Review of Systems ROS Unobtainable: All systems reviewed & are unremarkable except as noted in HPI and below Patient History Social History marital status: Smoking Status: Current some day smoker Tobacco: How many years used: 56 alcohol intake: never Smoking Status: Current some day smoker tobacco type: cigarettes alcohol intake frequency: other Substance Use Type: does not use Exam Narrative Exam Narrative: GENERAL: Alert and oriented x three, obese female in mild distress. HEENT: Head normocephalic, atraumatic, EOMI, pupils reactive, face symmetric, moist mucous membranes NECK: Supple, full range of motion CARDIOVASCULAR: Regular rate and rhythm without murmurs, rubs or gallops. RESPIRATORY: Breath sounds equal bilaterally, no wheezes rales or rhonchi. ABDOMEN: Soft, nontender. Normoactive bowel sounds all 4 quadrants. No guarding or rebound, rigidity, no mass : No CVA tenderness EXTREMITIES: Normal range of motion, no clubbing or edema. Neurovascularly intact NEUROLOGICAL: Cranial nerves II through XII grossly intact. Moving all extremities SKIN: Warm, dry, no petechiae, no rashes or lesions. Initial Vital Signs Initial Vital Signs: Vital Signs Temperature 97.1 F L 12/02/23 16:23 Pulse Rate 90 12/02/23 16:23 Respiratory Rate 12 12/02/23 16:23 Blood Pressure 160/72 H 12/02/23 16:23 Pulse Oximetry 97 12/02/23 16:23 Oxygen Delivery Method Room Air 12/02/23 16:23 Course Orders Ordered: Discontinued Medications Sodium Chloride (Normal Saline 0.9%) 1,000 mls @ 1,000 mls/hr IV BOLUS ONE Stop: 12/02/23 19:17 Last Infusion: 12/02/23 19:21 Dose: Infused Documented By: Admin: 12/02/23 18:35 Dose: 1,000 mls/hr Documented By: LETHA Vital Signs Vital signs: Vital Signs - 8 hr 12/02/23 16:23 12/02/23 18:12 12/02/23 18:30 Temperature 97.1 F L Pulse Rate 90 Respiratory Rate 12 Blood Pressure 160/72 H 117/59 L Pulse Oximetry 97 95 Oxygen Delivery Method Room Air 12/02/23 18:30 12/02/23 19:01 12/02/23 19:03 Temperature Pulse Rate 75 79 Respiratory Rate 15 Blood Pressure 155/66 H Pulse Oximetry 96 83 L 95 Oxygen Delivery Method Room Air 12/02/23 19:03 12/02/23 19:30 12/02/23 19:31 Temperature Pulse Rate 82 79 Respiratory Rate Blood Pressure 116/56 L Pulse Oximetry 97 95 Oxygen Delivery Method 12/02/23 19:31 12/02/23 20:01 12/02/23 20:30 Temperature Pulse Rate 80 85 81 Respiratory Rate Blood Pressure Pulse Oximetry 95 94 91 Oxygen Delivery Method 12/02/23 21:01 Temperature Pulse Rate 83 Respiratory Rate Blood Pressure Pulse Oximetry 94 Oxygen Delivery Method MDM - Recheck/Abnormal Lab/Rx Lab Data 12/02/23 16:30 12/02/23 16:30 Labs: Lab Results 12/02/23 Range/Units 16:30 WBC 9.2 (4.5-11.0) X10^3/uL RBC 4.07 (4.0-5.2) X10^6/uL Hgb 13.7 (12.0-16.0) g/dL Hct 39.7 (36-46) % MCV 97.5 (80-100) fL MCH 33.5 (26-34) PG MCHC 34.4 (30-36) % RDW 14.2 (11.6-14.8) % Plt Count 120 L (150-400) X10^3/uL Neut % (Auto) 65.3 (50-75) % Lymph % (Auto) 18.9 L (25-40) % [place] % (Auto) 7.5 (3-14) % Eos % (Auto) 7.3 H (2-4) % Baso % (Auto) 1.0 (0-2) % Neut # (Auto) 6000 (0685-2458) /uL Lymph # (Auto) 1700 (7715-9179) /uL [place] # (Auto) 700 (0-900) /uL Eos # (Auto) 700 H (0-450) /uL Baso # (Auto) 100 (0-100) /uL Sodium 129 L (137-145) mmol/L Potassium 5.6 H (3.4-5.1) mmol/L Chloride 96 L (98-107) mmol/L Carbon Dioxide 26 (22-32) mmol/L BUN 35 H (7-17) mg/dL Creatinine 1.73 H (0.52-1.04) mg/dL Estimated GFR 31 L (>60) mL/min BUN/Creatinine Ratio 20.2 (6-22) Glucose 618 H* (80-110) mg/dL Lactate 1.9 (0.7-2.1) mmol/L Calcium 9.2 (8.4-10.2) mg/dL Total Bilirubin 0.7 (0.2-1.3) mg/dL AST 33 (14-36) IU/L ALT 27 (<35) IU/L Alkaline Phosphatase 126 (38-126) U/L Total Creatine Kinase 47 (30-135) U/L Troponin I < 0.012 (0.01-0.034) ng/mL Total Protein 8.0 (6.3-8.2) g/dL Albumin 4.4 (3.5-5.0) g/dL Globulin 3.6 (1.7-4.1) g/dL Albumin/Globulin Ratio 1.2 (1.0-2.8) Ketones < 0.20 (<0.27) mmol/L ECG Data Attestation: I personally reviewed and interpreted this ECG as follows: Interpretation: Sinus rhythm, right bundle-branch block rate 80 [place] 192 QRS of 130 QTC of 498. [facility] Narrative Medical decision making narrative: 73-year-old recently had her diabetic medication decreased. Patient does not regularly check her glucose. She was found to be hyperglycemic on outpatient labs ordered by her liver specialist. Patient has been asymptomatic. Labs show a CBC with a normal white count hemoglobin platelet count of 120, predominance eosinophils low lymphocytes. Chemistry shows sodium 129 uncorrected, potassium 5.6, chloride 96 CO2 of 26, BUN 35 with creatinine 1.73, up from patient's priors in August which were 1.4. Glucose is 618, patient's LFTs are otherwise appropriate. Ketones negative. Patient's anion gap 7 Recheck glucose is 423 after 3/4 L of fluid. Patient would like to return home. We had not obtained VBG yet. Patient does not wish for additional intervention. She had her Janumet decreased from 2 tablets to 1 tablet for renal concerns, she does have an elevation in her creatinine which he would prefer to restart this and follow up with his physician this week rather than started low-dose Lantus which was alternative discussed. Patient was asked to call 1st thing in the morning. She is open to having me write her for a glucometer and supplies. She states she is plenty of medication at home. A copy of her labs from today are included with her discharge paperwork patient with physician. Discharge Plan Departure Patient Disposition: Home Clinical Impression: Hyperglycemia Activity Restrictions/Additional Instructions: Please follow up with your physician in the next week for recheck. Your glucose did improve with fluids. You can restart your Janumet and go back to 2 tablets daily rather than 1 but you need to follow up with your physician as they may need to adjust your medications differently for the retirement such as with Lantus or an alternative oral medications. A prescription for glucometer and testing supplies was sent to the [facility] pharmacy in [place]. Please return for any new symptoms, persistently elevated glucose, headaches, vision changes, new chest pain or shortness of breath, nausea or vomiting, abdominal pain, increased urinary frequency or other new or concerning changes. Prescriptions: New (DME) blood-glucose meter [CareTouch Glucose Monitoring] Kit See Rx Instructions .Route Qty: 1 0RF Rx Instructions: As directed (DME) CareTouch Test Strip Strip See Rx Instructions .Route Qty: 50 0RF Rx Instructions: As directed No Action levothyroxine [Synthroid] 25 mcg tablet 200 mcg PO QAM Qty: 0 doxepin 10 mg capsule 10 mg PO ONCE PM spironolactone 25 mg Tablet 25 mg PO DAILY furosemide 20 mg tablet 20 mg PO DAILY albuterol sulfate [ProAir HFA] 90 mcg/actuation HFA aerosol inhaler 2 puff INHALATION DAILY Patient Comments: [NO ORIGINAL SIG] Janumet XR 50-1,000 mg tablet, ER multiphase 24 hr 50 - 1,000 tab PO DAILY Spiriva Respimat 1.25 mcg/actuation mist 2 puff inhalation DAILY furosemide [Lasix] 40 mg tablet 40 mg PO BID Qty: 10 0RF pregabalin 50 mg capsule 50 mg PO DAILY Referrals: Leora Fulton MD [Primary Care Provider] - Stand Alone Forms: Patient Portal/API
== END 2023-12-02 22:04 | disposition home or self-care (01) ==
PROVIDERS: Emergency Medicine; Emergency Provider Emergency Medicine; PCP Student in an Organized Health Care Education/Training Program
DX: E11.65 Type 2 diabetes mellitus with hyperglycemia (principal); R07.9 Chest pain, unspecified
CPT/HCPCS: 36415; 80053; 82009; 82550; 83605; 84484; 85025; 93005; 99284

== ENCOUNTER → 2023-12-13 09:41 | Outpatient (CLI) | payer MEDICARE, OTHER, SELFPAY ==
--- NOTE | 2023-12-13 09:43 | DI.US.S_ITS ---
PROCEDURE: US ABDOMEN LIMITED INDICATIONS: CRYPTOGENIC CIRRHOSIS OF LIVER TECHNIQUE: Real-time scanning was performed of the abdominal for ascites, with image documentation. COMPARISON: [facility], CT, CT ABDOMEN PELVIS W CON, 08/14/2023, 16:06. FINDINGS: No ascites identified in the abdominal quadrants. IMPRESSION: No ascites seen. If clinically indicated CT abdomen pelvis with IV contrast could be considered for further evaluation. Dictated by: Daniel Sharma M.D. on 12/13/2023 at 17:10 Approved by: Daniel Sharma M.D. on 12/13/2023 at 17:12
== END ==
LOC: US 09:43
PROVIDERS: PCP Family Medicine; Referring Provider Internal Medicine; Visit Provider Internal Medicine
DX: K74.69 Other cirrhosis of liver (principal)
CPT/HCPCS: 76705

== ENCOUNTER 2023-12-27 11:10 | Day surgery (SDC) | payer MEDICARE, OTHER, SELFPAY ==
[2023-12-27 11:50] VITALS: BP 126/65; PULSE 83; RESP 18; TEMP 36.6; O2SAT 98
[2023-12-27] MEDS: LACTATED RINGERS 1,000 ML 42 ML IV (12:03)
--- NOTE | 2023-12-27 12:19 | P.HP_ITS ---
History of Present Illness History of Present Illness Date Patient Seen: 12/27/23 Time Patient Seen: 12:19 Chief complaint: SDC Narrative: 73-year-old female here for EGD. I reviewed the recent clinic note by Dr. Ulloa. Last EGD in June she had some oozing of blood in the distal esophagus with grade 1-2 varices. A band was placed. She is here for surveillance EGD. Blood sugars are extremely high here in clinic. She is being treated with some insulin pre procedure. [facility] Social History marital status: Smoking Status: Current some day smoker Tobacco: How many years used: 56 alcohol intake: never Meds Home Medications and Allergies Home Medications Medication Instructions Recorded Confirmed Type levothyroxine 25 mcg tablet 200 mcg PO QAM ##0 07/24/16 12/27/23 History (Synthroid) pregabalin 50 mg capsule 50 mg PO DAILY 01/19/23 12/27/23 History albuterol sulfate 90 mcg/actuation 2 puff inhalation DAILY 07/07/23 12/27/23 History aerosol inhaler (ProAir HFA) doxepin 10 mg capsule 10 mg PO ONCE PM 07/07/23 12/27/23 History sitagliptin phos 50 mg-metformin 50 - 1,000 tab PO DAILY 07/07/23 12/27/23 History ER 1,000 mg tablet,extend rel 24h mp (Janumet XR) spironolactone 25 mg tablet 25 mg PO DAILY 07/07/23 07/07/23 History tiotropium bromide 1.25 2 puff inhalation DAILY 07/07/23 12/27/23 History mcg/actuation mist for inhalation (Spiriva Respimat) furosemide 40 mg tablet (Lasix) 40 mg PO BID #10 tabs 08/14/23 12/27/23 Rx blood sugar diagnostic (CareTouch #50 ea 12/02/23 Rx Test Strip) blood-glucose meter (CareTouch #1 ea 12/02/23 Rx Glucose Monitoring System kit) lactulose 10 gram/15 mL oral PO 12/27/23 History solution patiromer calcium sorbitex 8.4 8.4 g PO DAILY 12/27/23 12/27/23 History gram oral powder packet (Veltassa) Allergies Allergy/AdvReac Type Severity Reaction Status Date / Time No Known Drug Allergies Allergy Verified 12/27/23 11:42 Review of Systems Review of Systems ROS: Yes All systems reviewed with the patient and are negative except as otherwise documented Exam Vital Signs (past 8 hours): - 12/27/23 11:50 Temperature 97.8 F Pulse Rate 83 Respiratory Rate 18 Blood Pressure 126/65 Pulse Oximetry 98 Oxygen Delivery Method Room Air Oxygen Delivery Method Room Air Const General: cooperative HENMT Head: normal to inspection Eyes General: appearance normal, both eyes and all related structures Neck Neck: normal visual inspection Chest Chest: normal inspection of the chest Resp Effort & Inspection: normal respiratory effort Cardio Rate: regular rate GI Inspection: normal to inspection Other: Obese. Large pannus. 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 She has a history of grade 1-2 varices and a band was placed in June. Surveillance EGD is pursued today. Time-Based Coding :: [TOTAL MINUTES] spent with patient and on the chart (including review of chart, obtaining history, exam, reviewing outside data, placing orders, documenting exam and treatment plan, and counseling patient) on [DATE].
--- NOTE | 2023-12-27 12:22 | PM.PREOP ---
Pre-operative Note Interval Note History & Physical reviewed/Exam performed by Physician: Yes Changes to H&P: No ASA Class (for procedural sedation): III
[2023-12-27] MEDS: INSULIN LISPRO 100 UNIT/ML 3ML VIAL SUBCUT (12:46)
--- NOTE | 2023-12-27 13:58 | PM.OP.EGD ---
Operative Date/Time/Diagnoses Date of procedure: 12/27/23 Time of procedure: 13:58 Post-op diagnosis: same Procedure & Clinicians Study performed: EGD Same procedure as scheduled: Yes Indications: Cirrhosis and varices with prior banding Surgeon: Paxton Hernandez Procedure Notes SCOAP/Timeout: Done Procedure in detail: After the risks and benefits were explained, written and verbal informed consent was obtained. The patient was brought into the procedure room and placed into the left lateral decubitus position. Conscious sedation medication was applied as per nursing documentation. The scope was introduced into the mouth through the bite block and advanced under direct visualization to the 2nd portion of the duodenum. The scope was slowly withdrawn carefully examining the mucosa for any defects or lesions. Retroflexed views were accomplished in the stomach. The stomach was decompressed, the scope was then removed from the patient who tolerated the procedure poorly. Sedation minutes: 7 Specimen(s): none sent Complications: none Impression: 1. Duodenal: No overt pathology identified from the bulb through to the 2nd portion. 2. Stomach: The patient had a diffuse portal hypertensive gastropathy. No gastric varices identified. No ulcers no mass lesion no outlet obstruction. 3. Esophagus: The squamocolumnar junction correlated with the top of the gastric folds. GEJ was at 41 cm from the incisors. Patient had evidence of grade 1 distal esophageal varices without stigmata of recent bleeding and no high-risk features. Endoscopic diagnosis 1. Grade 1 distal esophageal varices 2. Portal gastropathy Post-procedure Plan for aftercare: 1. Continue to follow along in GI clinic. 2. Consider surveillance EGD in 1 year. 3. Follow up primary care in light of the uncontrolled blood sugars identified today. Disposition: PACU
[2023-12-27 14:05] VITALS: BP 126/52; PULSE 87; RESP 22; TEMP 36.8; O2SAT 97
[2023-12-27 14:10] VITALS: BP 109/56; PULSE 86; RESP 20; TEMP 36.8; O2SAT 96
[2023-12-27 14:15] VITALS: BP 113/56; PULSE 90; RESP 19; TEMP 36.7; O2SAT 95
[2023-12-27 14:29] VITALS: BP 106/64; PULSE 84; RESP 16; O2SAT 95
== END 2023-12-27 14:47 | disposition home or self-care (01) ==
PROVIDERS: PCP Family Medicine; Referring Provider Internal Medicine Gastroenterology; Visit Provider Internal Medicine Gastroenterology
PROC: 0DJ08ZZ Inspection of Upper Intestinal Tract, Via Natural or Artificial Opening Endoscopic (ICD-10-PCS; CPT 43235; principal; 2023-12-27 12:30)
DX: I85.10 Secondary esophageal varices without bleeding (principal); K74.60 Unspecified cirrhosis of liver; K76.6 Portal hypertension; K31.89 Other diseases of stomach and duodenum
CPT/HCPCS: 43235; 82962; J1815

== ENCOUNTER 2024-01-24 12:52 | Emergency (ER) | payer MEDICARE, OTHER, SELFPAY ==
[2024-01-24] VITALS (12 sets, daily range): BP systolic 154–204; BP diastolic 67–80; PULSE 84–93; RESP 14–22; TEMP 36.3; O2SAT 91–99; BMI 39.7
[2024-01-24 13:33] LABS: Add Manual Diff / Slide Review NO; Basophils Absolute Auto 100 /uL (0-100); Basophils Percent Auto 1.4 % (0-2); Eosinophils Absolute Auto 600 /uL (0-450); Eosinophils Percent Auto 6.4 % (2-4); Hematocrit 36.4 % (36-46); Hemoglobin 12.3 g/dL (12.0-16.0); Lymphocytes Absolute Auto 1300 /uL (1100-4500); Lymphocytes Percent Auto 13.1 % (25-40); Mean Corpuscular HGB Conc 33.9 % (30-36); Mean Corpuscular Hemoglobin 32.7 PG (26-34); Mean Corpuscular Volume 96.5 fL (80-100); Monocytes Absolute Auto 700 /uL (0-900); Monocytes Percent Auto 7.5 % (3-14); Neutrophils Absolute Auto 7000 /uL (1500-7000); Neutrophils Percent Auto 71.6 % (50-75); Platelet Count 131 X10^3/uL (150-400); Red Blood Cell Count 3.77 X10^6/uL (4.0-5.2); White Blood Cell Count 9.8 X10^3/uL (4.5-11.0)
[2024-01-24 13:42] LABS: INR 1.1 (0.9-1.3); Prothrombin Time 12.4 SECONDS (9.4-12.5)
[2024-01-24 13:47] LABS: Alanine Aminotransferase 23 IU/L (<35); Albumin 4.1 g/dL (3.5-5.0); Albumin Globulin Ratio 1.2 (1.0-2.8); Alkaline Phosphatase 145 U/L (38-126); Aspartate Aminotransferase 34 IU/L (14-36); Bilirubin Total 0.7 mg/dL (0.2-1.3); Blood Urea Nitrogen 20 mg/dL (7-17); Carbon Dioxide 23 mmol/L (22-32); Chloride 104 mmol/L (98-107); Estimated Glomerular Filt Rate 46 mL/min (>60); Globulin 3.3 g/dL (1.7-4.1); Glucose 323 mg/dL (80-110); HEMOLYSIS 22 (0-50); Lipase 93 U/L (23-300); Potassium 4.7 mmol/L (3.4-5.1); Sodium 135 mmol/L (137-145); Total Protein 7.4 g/dL (6.3-8.2)
[2024-01-24 13:48] LABS: Ammonia (NH3) < 9 umol/L (9-30); Lactate (Lactic Acid) 1.8 mmol/L (0.7-2.1)
--- NOTE | 2024-01-24 14:00 | DI.US.S_ITS ---
PROCEDURE: US ABDOMEN LIMITED INDICATIONS: abd dist. known cirrhosis. pre paracentesis. TECHNIQUE: Real-time focused scanning was performed of the abdomen, with image documentation. COMPARISON: [facility], , US ABDOMEN LIMITED, 12/13/2023, 10:01. FINDINGS: No ascites can be seen within the right lower quadrant. Within the left lower quadrant, a [id number] pocket of ascites is seen. The overlying skin was marked, with the center of the pocket 4.1 cm below the marked site, with the skin thickness 2.3 cm thick at this site. IMPRESSION: Marking of ascites within the left lower quadrant for paracentesis by the attending physician. Dictated by: Mario Mathis M.D. on 01/24/2024 at 13:50 Approved by: Mario Mathis M.D. on 01/24/2024 at 13:51
--- NOTE | 2024-01-24 14:26 | DI.CT.S_ITS ---
PROCEDURE: CT ABDOMEN PELVIS W CON INDICATIONS: distention and pain TECHNIQUE: After the administration of intravenous contrast, axial sections acquired from the lung bases to the pubic symphysis. Coronal and sagittal reformats were performed. For radiation dose reduction, the following was used: automated exposure control, adjustment of mA and/or kV according to patient size. COMPARISON: [facility], CT, CT ABDOMEN PELVIS W CON, 08/14/2023, 16:06. FINDINGS: Image quality: Diagnostic. Lower Chest: No significant findings. ABDOMEN: Liver: No solid mass. Cirrhotic change, as before. Gallbladder: Surgically absent Biliary ducts: No biliary dilation. Pancreas: No ductal dilation. Spleen: Splenomegaly again noted.. Adrenal Glands: No adrenal nodules. Kidneys and Ureters: No hydronephrosis. No solid mass. No complex renal cystic lesion which requires follow up. Stomach and Bowel: Stomach contains some hyperdense material, likely ingested oral contents. Cannot exclude a small amount of hemorrhagic material. Normal colonic caliber, without significant wall thickening. Mild diverticulosis without evidence of acute diverticulitis. Peritoneum: Interval increase in ascites, [id number]. Ventral Wall: No significant ventral hernia. Pannus with question of mild cellulitic change. Abdominal Nodes: No retroperitoneal or mesenteric adenopathy by size criteria. Vessels: Aorta and inferior vena cava are normal in size. PELVIS: Pelvic Organs: Uterus is surgically absent. Bladder: No bladder wall thickening, accounting for underdistention. Pelvic Nodes: No enlarged lymph nodes. Miscellaneous: No inguinal hernias are seen. Bones: No aggressive osseous abnormality. IMPRESSION: 1. Cirrhosis, splenomegaly, as before. 2. Interval increase in ascites, [id number]. 3. Question mild cirrhotic change involving the anterior abdominal pannus. 4. Remote cholecystectomy and hysterectomy. 5. Hyperdense material within the stomach most likely is ingested oral contents. Cannot exclude hemorrhagic content. Recommend clinical correlation Dictated by: Shaun Vela M.D. on 01/24/2024 at 15:08 Approved by: Shaun Vela M.D. on 01/24/2024 at 15:31
--- NOTE | 2024-01-24 16:39 | ED_ITS ---
HPI - Abdominal Pain General Chief Complaint: Abdominal Pain Stated Complaint: abd px Time Seen by Provider: 01/24/24 14:21 Mode of arrival: Ambulatory History of Present Illness HPI narrative: Patient is a 73-year-old female history of esophageal varices grade 1 and 2 band was placed she also has a history of non alcoholic cirrhosis, chronic kidney disease presenting today with increasing abdominal pain and distention. She reports that she is put on 10 lb over the last 1 week or so. She denies any chest pain or shortness of breath. No fever or chills. She just feels uncomfortable. She was told by her GI doctor to come to the ED for evaluation. She was actually seen here early in December she has not really had ascites before. She has no peripheral edema Related Data Home Medications Medication Instructions Recorded Confirmed levothyroxine 25 mcg tablet 200 mcg PO QAM ##0 07/24/16 12/27/23 (Synthroid) pregabalin 50 mg capsule 50 mg PO DAILY 01/19/23 12/27/23 albuterol sulfate 90 mcg/actuation 2 puff inhalation DAILY 07/07/23 12/27/23 aerosol inhaler (ProAir HFA) doxepin 10 mg capsule 10 mg PO ONCE PM 07/07/23 12/27/23 sitagliptin phos 50 mg-metformin 50 - 1,000 tab PO DAILY 07/07/23 12/27/23 ER 1,000 mg tablet,extend rel 24h mp (Janumet XR) spironolactone 25 mg tablet 25 mg PO DAILY 07/07/23 07/07/23 tiotropium bromide 1.25 2 puff inhalation DAILY 07/07/23 12/27/23 mcg/actuation mist for inhalation (Spiriva Respimat) lactulose 10 gram/15 mL oral PO 12/27/23 solution patiromer calcium sorbitex 8.4 8.4 g PO DAILY 12/27/23 12/27/23 gram oral powder packet (Veltassa) Previous Rx's Medication Instructions Recorded furosemide 40 mg tablet (Lasix) 40 mg PO BID #10 tabs 08/14/23 blood sugar diagnostic (CareTouch #50 ea 12/02/23 Test Strip) blood-glucose meter (CareTouch #1 ea 12/02/23 Glucose Monitoring System kit) Allergies Allergy/AdvReac Type Severity Reaction Status Date / Time No Known Drug Allergies Allergy Verified 01/24/24 13:02 Patient History Social History marital status: Smoking Status: Current some day smoker Tobacco: How many years used: 56 alcohol intake: never Smoking Status: Current some day smoker tobacco type: cigarettes alcohol intake frequency: other Substance Use Type: does not use Exam Initial Vital Signs Initial Vital Signs: Vital Signs Temperature 97.3 F L 01/24/24 12:57 Pulse Rate 90 01/24/24 12:57 Respiratory Rate 14 01/24/24 12:57 Blood Pressure 158/80 H 01/24/24 12:57 Pulse Oximetry 99 01/24/24 12:57 Oxygen Delivery Method Room Air 01/24/24 12:57 GENERAL: Alert pleasant 73-year-old female HEENT: Head atraumatic,EOMI, pupils reactive, face symmetric, moist mucous membranes CARDIOVASCULAR: Regular rate and rhythm without murmurs, rubs or gallops. RESPIRATORY: Breath sounds equal bilaterally, no wheezes rales or rhonchi. ABDOMEN: Obesity mild distention guarding or rebound or guarding EXTREMITIES: Normal range of motion, no clubbing, no edema. Neurovascularly intact NEUROLOGICAL: Alert and oriented x4.Normal gait and speech. Cranial nerves II through XII grossly intact. SKIN: Warm, dry, no laceration, no petechiae, no rashes or lesions. Course Orders Ordered: ED Orders 01/24/24 13:03 EKG-12 Lead Stat 01/24/24 13:22 Ammonia (NH3) Stat Complete Blood Count AUTO DIFF Stat Comprehensive Metabolic Panel Stat Lactate (Lactic Acid) Stat Lipase Stat Prothrombin Time INR Stat 01/24/24 14:00 US abdomen limited Stat 01/24/24 14:26 CT abdomen pelvis w con Stat 01/24/24 16:54 Urine Culture Stat Urine Microscopic Stat Discontinued Medications Furosemide (Furosemide 40 Mg/4 Ml Vial) 40 mg IV NOW ONE Stop: 01/24/24 16:51 Last Admin: 01/24/24 16:55 Dose: 40 mg Documented By: WATSON Ondansetron HCl (Ondansetron 4 Mg/2 Ml Inj) 4 mg IV NOW PRN PRN Reason: Nausea And Vomiting Ondansetron HCl (Ondansetron 4 Mg Odt) 4 mg PO NOW PRN PRN Reason: Nausea And Vomiting Vital Signs Vital signs: Vital Signs - 8 hr 01/24/24 12:57 01/24/24 14:19 01/24/24 14:22 Temperature 97.3 F L Pulse Rate 90 93 H 87 Respiratory Rate 14 19 Blood Pressure 158/80 H Pulse Oximetry 99 99 99 Oxygen Delivery Method Room Air 01/24/24 14:22 01/24/24 14:40 01/24/24 14:42 Temperature Pulse Rate 92 H 92 H Respiratory Rate Blood Pressure 156/68 H Pulse Oximetry 91 98 Oxygen Delivery Method 01/24/24 14:42 01/24/24 15:00 01/24/24 15:01 Temperature Pulse Rate 89 90 Respiratory Rate 16 16 Blood Pressure 204/72 H Pulse Oximetry 96 99 Oxygen Delivery Method 01/24/24 15:01 01/24/24 15:30 01/24/24 15:31 Temperature Pulse Rate 89 Respiratory Rate 22 Blood Pressure 165/71 H 154/67 H Pulse Oximetry 93 Oxygen Delivery Method 01/24/24 15:31 01/24/24 16:00 01/24/24 16:00 Temperature Pulse Rate 87 87 Respiratory Rate 22 18 Blood Pressure 163/70 H Pulse Oximetry 94 96 Oxygen Delivery Method 01/24/24 16:30 01/24/24 17:15 Temperature Pulse Rate 84 Respiratory Rate 22 Blood Pressure 186/74 H Pulse Oximetry Oxygen Delivery Method MDM - Abdominal Pain Lab Data 01/24/24 13:22 01/24/24 13:22 Labs: Lab Results 01/24/24 01/24/24 Range/Units 13:22 16:54 WBC 9.8 (4.5-11.0) X10^3/uL RBC 3.77 L (4.0-5.2) X10^6/uL Hgb 12.3 (12.0-16.0) g/dL Hct 36.4 (36-46) % MCV 96.5 (80-100) fL MCH 32.7 (26-34) PG MCHC 33.9 (30-36) % RDW 15.0 H (11.6-14.8) % Plt Count 131 L (150-400) X10^3/uL Neut % (Auto) 71.6 (50-75) % Lymph % (Auto) 13.1 L (25-40) % [place] % (Auto) 7.5 (3-14) % Eos % (Auto) 6.4 H (2-4) % Baso % (Auto) 1.4 (0-2) % Neut # (Auto) 7000 (4418-9303) /uL Lymph # (Auto) 1300 (8694-7341) /uL [place] # (Auto) 700 (0-900) /uL Eos # (Auto) 600 H (0-450) /uL Baso # (Auto) 100 (0-100) /uL PT 12.4 (9.4-12.5) SECONDS INR 1.1 (0.9-1.3) Sodium 135 L (137-145) mmol/L Potassium 4.7 (3.4-5.1) mmol/L Chloride 104 (98-107) mmol/L Carbon Dioxide 23 (22-32) mmol/L BUN 20 H (7-17) mg/dL Creatinine 1.25 H (0.52-1.04) mg/dL Estimated GFR 46 L (>60) mL/min BUN/Creatinine Ratio 16.0 (6-22) Glucose 323 H (80-110) mg/dL Lactate 1.8 (0.7-2.1) mmol/L Calcium 9.0 (8.4-10.2) mg/dL Total Bilirubin 0.7 (0.2-1.3) mg/dL AST 34 (14-36) IU/L ALT 23 (<35) IU/L Alkaline Phosphatase 145 H (38-126) U/L Ammonia < 9 L (9-30) umol/L Total Protein 7.4 (6.3-8.2) g/dL Albumin 4.1 (3.5-5.0) g/dL Globulin 3.3 (1.7-4.1) g/dL Albumin/Globulin Ratio 1.2 (1.0-2.8) Lipase 93 (23-300) U/L Urine RBC 0-1/hpf (0-5/HPF) Urine WBC 30-100/hpf H (0-5/HPF) Ur Squamous Epith Cells 1-5 /hpf (0-5/HPF) Urine Bacteria Many (>30) H (None) Urine Yeast 10-30/hpf H (None) Ur Culture Indicated? Specimen cultured Vol Urine Centrifuged 10ml (spun) Point of care testing: Urine Dip Bedside Urine Glucose 250 mg/dl Bedside Urine Bilirubin - Negative Bedside Urine Ketone - Negative Urine Specific [place] 1.015 Bedside Urine Occult Blood +++ Bedside Urine pH 5.5 Bedside Urine Protein - Negative Bedside Urine Urobilinogen - Negative Bedside Urine Nitrite - Negative Bedside Urine Leukocytes + 70 Esterase Imaging Data US - abdomen: Radiologist's Impression: PROCEDURE: US ABDOMEN LIMITED INDICATIONS: abd dist. known cirrhosis. pre paracentesis. TECHNIQUE: Real-time focused scanning was performed of the abdomen, with image documentation. COMPARISON: [facility], US, US ABDOMEN LIMITED, 12/13/2023, 10:01. FINDINGS: No ascites can be seen within the right lower quadrant. Within the left lower quadrant, a [id number]-wp-daiudxde pocket of ascites is seen. The overlying skin was marked, with the center of the pocket 4.1 cm below the marked site, with the skin thickness 2.3 cm thick at this site. IMPRESSION: Marking of ascites within the left lower quadrant for paracentesis by the attending physician. Dictated by: Mario Mathis M.D. on 01/24/2024 at 13:50 CT scan - abdomen/pelvis: Radiologist's Impression: PROCEDURE: CT ABDOMEN PELVIS W CON INDICATIONS: distention and pain TECHNIQUE: After the administration of intravenous contrast, axial sections acquired from the lung bases to the pubic symphysis. Coronal and sagittal reformats were performed. For radiation dose reduction, the following was used: automated exposure control, adjustment of mA and/or kV according to patient size. COMPARISON: [facility], CT, CT ABDOMEN PELVIS W CON, 08/14/2023, 16:06. FINDINGS: Image quality: Diagnostic. Lower Chest: No significant findings. ABDOMEN: Liver: No solid mass. Cirrhotic change, as before. Gallbladder: Surgically absent Biliary ducts: No biliary dilation. Pancreas: No ductal dilation. Spleen: Splenomegaly again noted.. Adrenal Glands: No adrenal nodules. Kidneys and Ureters: No hydronephrosis. No solid mass. No complex renal cystic lesion which requires follow up. Stomach and Bowel: Stomach contains some hyperdense material, likely ingested oral contents. Cannot exclude a small amount of hemorrhagic material. Normal colonic caliber, without significant wall thickening. Mild diverticulosis without evidence of acute diverticulitis. Peritoneum: Interval increase in ascites, icjt-cz-jgnywiik. Ventral Wall: No significant ventral hernia. Pannus with question of mild cellulitic change. Abdominal Nodes: No retroperitoneal or mesenteric adenopathy by size criteria. Vessels: Aorta and inferior vena cava are normal in size. PELVIS: Pelvic Organs: Uterus is surgically absent. Bladder: No bladder wall thickening, accounting for underdistention. Pelvic Nodes: No enlarged lymph nodes. Miscellaneous: No inguinal hernias are seen. Bones: No aggressive osseous abnormality. IMPRESSION: 1. Cirrhosis, splenomegaly, as before. 2. Interval increase in ascites, ybrd-df-dowiesir. 3. Question mild cirrhotic change involving the anterior abdominal pannus. 4. Remote cholecystectomy and hysterectomy. 5. Hyperdense material within the stomach most likely is ingested oral contents. Cannot exclude hemorrhagic content. Recommend clinical correlation Dictated by: Shaun Vela M.D. on 01/24/2024 at 15:08 MDM Narrative Medical decision making narrative: Patient 73-year-old female with alcoholic cirrhosis presenting today with 10 lb weight gain and increasing abdominal pain. She has no fever Initial concern was for ascites. However bedside ultrasound shows a very small pocket of fluid and CT does show [id number] ascites. This is new from previous imaging. Blood work has been reviewed WBC 9.8 hemoglobin 12.3 hematocrit 36.4 platelets 131 previously 120 INR 1.1 PT 12.4 sodium 135, potassium 4.7, chloride 104, carbon dioxide 23 BUN 20 creatinine 1.25 previously 1.73 before that 1.45 GFR is 46 glucose 323 lactate 1.8 calcium 9.0 bilirubin 0.7 AST 3.4 ALT 23 alk-phos 145 lipase 93 Imaging has been reviewed no masses kniq-ie-ezfzgpsz ascites but pocket not big enough for paracentesis. At this time she has given a dose of Lasix here in the ED would increase Lasix for very short time to twice a day for 2 days to see if it helps with fluid diuresis. No concern for SBP although still possible again however not enough for paracentesis. She does not have fever or significant leukocytosis. She is scheduled to see a psychology instructor coming up in February. She is chronic kidney disease although or function today looks slightly improved Discharge Plan Departure Patient Disposition: Home Clinical Impression: Ascites Instructions: Ascites Activity Restrictions/Additional Instructions: *You have been diagnosed with ascites *What to do: At this time you has a very small about of fluid on your abdomen it has not quite enough to drain. Let us see if we can increase medicine to get fluid off of you I do recommend that you have repeat kidney function checked at the end of the week after you take this medication *Continue to take medications as directed Furosemide 40 mg twice a day for 2 days and then resume once daily *Follow up with your primary care provider in 2-3 days or call [phone] *Return to ER if you should have increased abdominal pain fever chills or any new, worsening or concerning symptoms Prescriptions: No Action levothyroxine [Synthroid] 25 mcg tablet 200 mcg PO QAM Qty: 0 doxepin 10 mg capsule 10 mg PO ONCE PM spironolactone 25 mg Tablet 25 mg PO DAILY albuterol sulfate [ProAir HFA] 90 mcg/actuation HFA aerosol inhaler 2 puff INHALATION DAILY Patient Comments: [NO ORIGINAL SIG] Janumet XR 50-1,000 mg tablet, ER multiphase 24 hr 50 - 1,000 tab PO DAILY Spiriva Respimat 1.25 mcg/actuation mist 2 puff inhalation DAILY lactulose 10 gram/15 mL solution PO Veltassa 8.4 gram powder in packet 8.4 g PO DAILY furosemide [Lasix] 40 mg tablet 40 mg PO BID Qty: 10 0RF (DME) blood-glucose meter [CareTouch Glucose Monitoring] Kit See Rx Instructions .Route Qty: 1 0RF Rx Instructions: As directed (DME) CareTouch Test Strip Strip See Rx Instructions .Route Qty: 50 0RF Rx Instructions: As directed pregabalin 50 mg capsule 50 mg PO DAILY Referrals: Rogers Iglesias DO [Primary Care Provider] - Stand Alone Forms: Patient Portal/API
[2024-01-24] MEDS: FUROSEMIDE 40 MG/4 ML VIAL IV (16:55)
[2024-01-24 17:39] LABS: Bacteria Urine Many (>30); Culture Indicated Urine Specimen Cultured; Squamous Epithelial Cell Urine 1-5 /HPF (0-5/HPF); Urine Volume 10mL (spun); WBC Urine 30-100/HPF (0-5/HPF)
[2024-01-24 17:40] LABS: RBC Urine 0-1/HPF (0-5/HPF)
== END 2024-01-24 17:20 | disposition home or self-care (01) ==
PROVIDERS: Emergency Provider Emergency Medicine; PCP Family Medicine
DX: R18.8 Other ascites (principal); R10.9 Unspecified abdominal pain
CPT/HCPCS: 36415; 74177; 76705; 80053; 81003; 81015; 82140; 83605; 83690; 85025; 85610; 87077; 87086; 87186; 96374; 99284; 99285; J1940; Q9967

== ENCOUNTER 2024-02-22 12:08 | Emergency (ER) | payer MEDICARE, OTHER, SELFPAY ==
[2024-02-22] VITALS (11 sets, daily range): BP systolic 127–160; BP diastolic 56–95; PULSE 74–85; RESP 17–22; TEMP 36.9; O2SAT 93–99
[2024-02-22 13:20] LABS: Add Manual Diff / Slide Review NO; Basophils Absolute Auto 100 /uL (0-100); Basophils Percent Auto 1.4 % (0-2); Eosinophils Absolute Auto 600 /uL (0-450); Eosinophils Percent Auto 5.6 % (2-4); Hematocrit 35.7 % (36-46); Hemoglobin 12.1 g/dL (12.0-16.0); Lymphocytes Absolute Auto 1400 /uL (1100-4500); Mean Corpuscular HGB Conc 33.8 % (30-36); Mean Corpuscular Volume 91.9 fL (80-100); Monocytes Absolute Auto 800 /uL (0-900); Monocytes Percent Auto 7.8 % (3-14); Neutrophils Absolute Auto 7000 /uL (1500-7000); Neutrophils Percent Auto 71.2 % (50-75); Platelet Count 141 X10^3/uL (150-400); Red Blood Cell Count 3.89 X10^6/uL (4.0-5.2); Red Cell Distribution Width 15.1 % (11.6-14.8); White Blood Cell Count 9.8 X10^3/uL (4.5-11.0)
[2024-02-22 13:27] LABS: INR 1.2 (0.9-1.3); Prothrombin Time 13.2 SECONDS (9.4-12.5)
[2024-02-22 13:37] LABS: Alanine Aminotransferase 20 IU/L (<35); Albumin 3.7 g/dL (3.5-5.0); Albumin Globulin Ratio 1.1 (1.0-2.8); Alkaline Phosphatase 132 U/L (38-126); Aspartate Aminotransferase 34 IU/L (14-36); BUN Creatinine Ratio 12.6 (6-22); Bilirubin Total 0.6 mg/dL (0.2-1.3); Blood Urea Nitrogen 16 mg/dL (7-17); Carbon Dioxide 24 mmol/L (22-32); Chloride 101 mmol/L (98-107); Estimated Glomerular Filt Rate 45 mL/min (>60); Globulin 3.4 g/dL (1.7-4.1); Glucose 317 mg/dL (80-110); HEMOLYSIS < 15 (0-50); Lipase 139 U/L (23-300); Potassium 4.8 mmol/L (3.4-5.1); Sodium 132 mmol/L (137-145); Total Protein 7.1 g/dL (6.3-8.2)
--- NOTE | 2024-02-22 13:47 | ED_ITS ---
HPI - General Adult General Chief complaint: Abdominal Pain Stated complaint: Extremities/Abd Swelling Time Seen by Provider: 02/22/24 13:04 Source: patient Mode of arrival: Ambulatory History of Present Illness HPI narrative: Patient is a 74-year-old female here for evaluation of lower extremity swelling and abdominal swelling causing her to have shortness of breath. She does have a history of ascites. Had a paracentesis earlier this year. Has not had any issues until just recently when she noticed that she was having swelling in her lower extremities. Things have worsened over the past couple days. No fevers. No chest pain. No cough. At 1 point she was on Lasix but that he was taken off of Lasix because of kidney issues. She was concerned that maybe she needs another paracentesis. Related Data Home Medications Medication Instructions Recorded Confirmed levothyroxine 25 mcg tablet 200 mcg PO QAM ##0 07/24/16 12/27/23 (Synthroid) pregabalin 50 mg capsule 50 mg PO DAILY 01/19/23 12/27/23 albuterol sulfate 90 mcg/actuation 2 puff inhalation DAILY 07/07/23 12/27/23 aerosol inhaler (ProAir HFA) doxepin 10 mg capsule 10 mg PO ONCE PM 07/07/23 12/27/23 sitagliptin phos 50 mg-metformin 50 - 1,000 tab PO DAILY 07/07/23 12/27/23 ER 1,000 mg tablet,extend rel 24h mp (Janumet XR) spironolactone 25 mg tablet 25 mg PO DAILY 07/07/23 07/07/23 tiotropium bromide 1.25 2 puff inhalation DAILY 07/07/23 12/27/23 mcg/actuation mist for inhalation (Spiriva Respimat) lactulose 10 gram/15 mL oral PO 12/27/23 solution patiromer calcium sorbitex 8.4 8.4 g PO DAILY 12/27/23 12/27/23 gram oral powder packet (Veltassa) Previous Rx's Medication Instructions Recorded furosemide 40 mg tablet (Lasix) 40 mg PO BID #10 tabs 08/14/23 blood sugar diagnostic (CareTouch #50 ea 12/02/23 Test Strip) blood-glucose meter (CareTouch #1 ea 12/02/23 Glucose Monitoring System kit) furosemide 20 mg tablet (Lasix) 20 mg PO DAILY #30 tabs 02/22/24 Allergies Allergy/AdvReac Type Severity Reaction Status Date / Time No Known Drug Allergies Allergy Verified 01/24/24 13:02 Review of Systems Review of Systems ROS Unobtainable: All systems reviewed & are unremarkable except as noted in HPI and below Patient History Social History marital status: Smoking Status: Current some day smoker Tobacco: How many years used: 56 alcohol intake: never Smoking Status: Current some day smoker tobacco type: cigarettes and vaping alcohol intake frequency: other Substance Use Type: does not use Exam Initial Vital Signs Initial Vital Signs: Vital Signs Temperature 98.4 F 02/22/24 12:25 Pulse Rate 83 02/22/24 12:25 Respiratory Rate 22 02/22/24 12:25 Blood Pressure 127/56 L 02/22/24 12:25 Pulse Oximetry 96 02/22/24 12:25 Oxygen Delivery Method Room Air 02/22/24 12:25 Const General: cooperative, comfortable and No ill appearing HENIL Head: normal to inspection and normocephalic Resp Effort & Inspection: normal respiratory effort, no cough and tachypneic Auscultation: clear to auscultation bilaterally Cardio Rate: regular rate Rhythm: regular rhythm GI Inspection: distended Palpation: firm, No guarding, No rigid and ascites Skin General: no rashes or lesions noted Neuro General: patient alert and patient awake Extrem General: edema Procedures Paracentesis Indication: Ascites Local Anesthetic: lidocaine 1% Amount of anesthesia used (mL): 3 Preparation: sterile prep and drape and Blade used to make siva in skin Fluid: clear Post Procedure Exam: awake, alert and normal BP Patient Tolerated Procedure: Well and No complications Course Orders Ordered: ED Orders 02/22/24 13:10 Complete Blood Count AUTO DIFF Stat Comprehensive Metabolic Panel Stat Lipase Stat Prothrombin Time INR Stat Vital Signs Vital signs: Vital Signs - 8 hr 02/22/24 12:25 02/22/24 13:43 02/22/24 13:44 Temperature 98.4 F Pulse Rate 83 83 Respiratory Rate 22 20 Blood Pressure 127/56 L 157/74 H Pulse Oximetry 96 99 Oxygen Delivery Method Room Air Room Air 02/22/24 14:00 02/22/24 14:00 02/22/24 14:30 Temperature Pulse Rate 83 85 Respiratory Rate 18 17 Blood Pressure 136/78 Pulse Oximetry 97 93 Oxygen Delivery Method 02/22/24 14:31 02/22/24 14:31 02/22/24 15:00 Temperature Pulse Rate 84 Respiratory Rate 21 Blood Pressure 160/71 H 156/71 H Pulse Oximetry 94 Oxygen Delivery Method 02/22/24 15:00 Temperature Pulse Rate 85 Respiratory Rate 22 Blood Pressure Pulse Oximetry 93 Oxygen Delivery Method Medical Decision Making Lab Data Lab results reviewed: Yes I reviewed the patient's lab results. 02/22/24 13:10 02/22/24 13:10 Labs: Lab Results 02/22/24 Range/Units 13:10 WBC 9.8 (4.5-11.0) X10^3/uL RBC 3.89 L (4.0-5.2) X10^6/uL Hgb 12.1 (12.0-16.0) g/dL Hct 35.7 L (36-46) % MCV 91.9 (80-100) fL MCH 31.0 (26-34) PG MCHC 33.8 (30-36) % RDW 15.1 H (11.6-14.8) % Plt Count 141 L (150-400) X10^3/uL Neut % (Auto) 71.2 (50-75) % Lymph % (Auto) 14.0 L (25-40) % [place] % (Auto) 7.8 (3-14) % Eos % (Auto) 5.6 H (2-4) % Baso % (Auto) 1.4 (0-2) % Neut # (Auto) 7000 (0672-8664) /uL Lymph # (Auto) 1400 (2632-2989) /uL [place] # (Auto) 800 (0-900) /uL Eos # (Auto) 600 H (0-450) /uL Baso # (Auto) 100 (0-100) /uL PT 13.2 H (9.4-12.5) SECONDS INR 1.2 (0.9-1.3) Sodium 132 L (137-145) mmol/L Potassium 4.8 (3.4-5.1) mmol/L Chloride 101 (98-107) mmol/L Carbon Dioxide 24 (22-32) mmol/L BUN 16 (7-17) mg/dL Creatinine 1.27 H (0.52-1.04) mg/dL Estimated GFR 45 L (>60) mL/min BUN/Creatinine Ratio 12.6 (6-22) Glucose 317 H (80-110) mg/dL Calcium 9.0 (8.4-10.2) mg/dL Total Bilirubin 0.6 (0.2-1.3) mg/dL AST 34 (14-36) IU/L ALT 20 (<35) IU/L Alkaline Phosphatase 132 H (38-126) U/L Total Protein 7.1 (6.3-8.2) g/dL Albumin 3.7 (3.5-5.0) g/dL Globulin 3.4 (1.7-4.1) g/dL Albumin/Globulin Ratio 1.1 (1.0-2.8) Lipase 139 (23-300) U/L MDM Narrative Medical decision making narrative: Patient has obvious ascites. After using bedside ultrasound a paracentesis was performed with removal of 5 L of fluid. I have low suspicion for SBP. No fevers. She has needed this in the past. She does have lower extremity swelling. Her creatinine today is relatively unremarkable and I do think that she can tolerate Lasix for the next couple days. She was advised she needed follow up with her GI doctor and also her primary doctor. She was given return precautions. She expressed understanding and agreement. Discharge Plan Departure Patient Disposition: Home Clinical Impression: Abdominal ascites, S/P abdominal paracentesis Instructions: DI for Abdominal Paracentesis Activity Restrictions/Additional Instructions: Recommend that you continue to take all of your medications as directed. You do need to contact your primary care provider and also your GI doctor for a follow- up. Return to the emergency department for new or worsening symptoms. Prescriptions: New furosemide [Lasix] 20 mg tablet 20 mg PO DAILY Qty: 30 0RF No Action levothyroxine [Synthroid] 25 mcg tablet 200 mcg PO QAM Qty: 0 doxepin 10 mg capsule 10 mg PO ONCE PM spironolactone 25 mg Tablet 25 mg PO DAILY albuterol sulfate [ProAir HFA] 90 mcg/actuation HFA aerosol inhaler 2 puff INHALATION DAILY Patient Comments: [NO ORIGINAL SIG] Janumet XR 50-1,000 mg tablet, ER multiphase 24 hr 50 - 1,000 tab PO DAILY Spiriva Respimat 1.25 mcg/actuation mist 2 puff inhalation DAILY lactulose 10 gram/15 mL solution PO Veltassa 8.4 gram powder in packet 8.4 g PO DAILY furosemide [Lasix] 40 mg tablet 40 mg PO BID Qty: 10 0RF (DME) blood-glucose meter [CareTouch Glucose Monitoring] Kit See Rx Instructions .Route Qty: 1 0RF Rx Instructions: As directed (DME) CareTouch Test Strip Strip See Rx Instructions .Route Qty: 50 0RF Rx Instructions: As directed pregabalin 50 mg capsule 50 mg PO DAILY Referrals: Rogers Iglesias DO [Primary Care Provider] - Stand Alone Forms: Patient Portal/API
--- NOTE | 2024-02-22 16:06 | PC.NURSE ---
tolerated Paracentesis without incident. 5000 ml of serous blood tinged drainage
== END 2024-02-22 16:07 | disposition home or self-care (01) ==
PROVIDERS: Emergency Provider Emergency Medicine; PCP Family Medicine
DX: R18.8 Other ascites (principal); R06.02 Shortness of breath
CPT/HCPCS: 36415; 49082; 80053; 83690; 85025; 85610; 99284

== ENCOUNTER 2024-04-17 12:35 | Emergency (ER) | payer MEDICARE, OTHER, SELFPAY ==
[2024-04-17] VITALS (18 sets, daily range): BP systolic 117–146; BP diastolic 56–85; PULSE 82–89; RESP 17–27; TEMP 36.8; O2SAT 92–98; BMI 44.6
--- NOTE | 2024-04-17 13:28 | PC.NURSE ---
Patient increase shortness of breath with ambulation, took couple minutes to recover. Did have a episode of unsteady gait with ambulation i just lost my balance Normal for patient
[2024-04-17 13:30] LABS: Appearance Urine UA CLOUDY; Bilirubin Urine UA NEGATIVE (NEGATIVE); Color Urine UA YELLOW; Glucose Urine UA 3+ g/dL (Negative); Ketones Urine UA NEGATIVE (NEGATIVE); Leukocyte Esterase Urine UA 1+ (NEGATIVE); Nitrite Urine UA NEGATIVE (Negative); Occult Blood Urine UA 1+ (Negative); Protein Urine UA TRACE (Negative); Specific Gravity Urine UA 1.025 (1.000-1.035); Urobilinogen Urine UA 0.2 E.U./dL (0.2)
[2024-04-17 13:32] LABS: Urine Volume 10mL (spun)
[2024-04-17 13:37] LABS: RBC Urine 1-5/HPF (0-5/HPF)
[2024-04-17 13:38] LABS: Bacteria Urine Many (>30); Culture Indicated Urine Specimen Cultured; Squamous Epithelial Cell Urine 5-10 /HPF (0-5/HPF); WBC Urine 30-100/HPF (0-5/HPF)
[2024-04-17 13:43] LABS: INR 1.1 (0.9-1.3); Prothrombin Time 12.5 SECONDS (9.4-12.5)
[2024-04-17 13:47] LABS: Alanine Aminotransferase 20 IU/L (<35); Albumin 3.8 g/dL (3.5-5.0); Alkaline Phosphatase 166 U/L (38-126); Aspartate Aminotransferase 39 IU/L (14-36); BUN Creatinine Ratio 12.5 (6-22); Bilirubin Total 0.6 mg/dL (0.2-1.3); Blood Urea Nitrogen 18 mg/dL (7-17); Calcium 8.6 mg/dL (8.4-10.2); Carbon Dioxide 24 mmol/L (22-32); Chloride 105 mmol/L (98-107); Estimated Glomerular Filt Rate 39 mL/min (>60); Globulin 3.7 g/dL (1.7-4.1); Glucose 150 mg/dL (80-110); HEMOLYSIS < 15 (0-50); Lipase 135 U/L (23-300); Potassium 4.3 mmol/L (3.4-5.1); Sodium 138 mmol/L (137-145); Total Protein 7.5 g/dL (6.3-8.2)
[2024-04-17 13:49] LABS: Add Manual Diff / Slide Review NO; Basophils Absolute Auto 100 /uL (0-100); Basophils Percent Auto 1.3 % (0-2); Eosinophils Absolute Auto 400 /uL (0-450); Eosinophils Percent Auto 3.8 % (2-4); Hematocrit 37.5 % (36-46); Hemoglobin 12.3 g/dL (12.0-16.0); Lymphocytes Absolute Auto 1400 /uL (1100-4500); Lymphocytes Percent Auto 15.4 % (25-40); Mean Corpuscular HGB Conc 32.9 % (30-36); Mean Corpuscular Hemoglobin 28.2 PG (26-34); Monocytes Absolute Auto 700 /uL (0-900); Neutrophils Absolute Auto 6600 /uL (1500-7000); Neutrophils Percent Auto 71.5 % (50-75); Platelet Count 159 X10^3/uL (150-400); Red Blood Cell Count 4.36 X10^6/uL (4.0-5.2); Red Cell Distribution Width 20.6 % (11.6-14.8); White Blood Cell Count 9.2 X10^3/uL (4.5-11.0)
--- NOTE | 2024-04-17 14:24 | EKG_ITS ---
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
--- NOTE | 2024-04-17 14:26 | EKG_ITS ---
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
[2024-04-17 14:57] LABS: Anisocytosis 1+; Platelet Estimate Adequate on smear
--- NOTE | 2024-04-17 15:44 | DI.US.S_ITS ---
PROCEDURE: US PARACENTESIS INDICATIONS: sob, ascites TECHNIQUE: The indications, alternatives, benefits, risks, and complications of the procedure were explained to the patient. Written informed consent was obtained and placed in the chart. The abdomen and pelvis were examined sonographically, and an appropriate site was chosen for paracentesis. The skin was prepared and draped in the usual sterile fashion, and 1% lidocaine was infiltrated from the skin down through the peritoneal surface. A 19-gauge catheter-covered needle was then introduced into the peritoneal space, the catheter was advanced and the needle was withdrawn, and thereafter peritoneal fluid was withdrawn. The catheter was then removed and a dressing was applied. The fluid was discarded if the clinician did not order diagnostic testing of the fluid. COMPARISON: [facility], CT, CT ABDOMEN PELVIS W CON, 01/24/2024, 14:34. FINDINGS: Access site: Left lower quadrant Needle: One-Step centesis catheter with introducer needle. Fluid volume and description: 5000, blood tinged straw-colored. Fluid sent for diagnostic testing: None. Medications: 1% lidocaine for local anaesthesia. Complications: None. IMPRESSION: Successful ultrasound-guided therapeutic paracentesis. Dictated by: Daniel Sharma M.D. on 04/17/2024 at 20:14 Approved by: Daniel Sharma M.D. on 04/17/2024 at 20:16
--- NOTE | 2024-04-17 16:42 | PC.NURSE ---
@ [phone] Dr. Sharma radiologist, [facility], and myself (RN) at bedside for paracentesis. Procedure explained by Dr. Sharma and consent form signed.
--- NOTE | 2024-04-17 17:40 | PC.NURSE ---
Dr. Sharma performed paracentesis at bedside. Pt tolerating procedure well, no hypotension. Denies worsening pain and states pain has decreased to 4/10. No longer SOB. Total output 5,000cc. Dr. Roman at bedside to assess and remove catheter. Pressure dressing applied to pt's LLQ abdomen d/t history of draining a lot for days after her prior paracentesis. Pt stating she will give us half an hour until she gets dressed and walks out.
--- NOTE | 2024-04-17 17:49 | ED.ABDPAIN ---
HPI - Abdominal Pain General Chief Complaint: Abdominal Pain Stated Complaint: Sent by [facility] to have water taken off abdomen Time Seen by Provider: 04/17/24 15:44 Source: patient, family, RN notes reviewed and old records reviewed Mode of arrival: Ambulatory Limitations: no limitations History of Present Illness HPI narrative: 74-year-old female presents with complaint of swelling of of her abdomen with known history of ascites and liver disease who presents for paracentesis. Patient was seen by her primary care physician of [facility] who recommended her to come here for paracentesis. Patient states her abdomen has been increasingly full has felt very tight like it is going to pop. This has been uncomfortable for her. Patient states she has had some increased shortness of breath. He does have edema in her lower extremities. Denies any fevers, no lightheadedness or passing out, no nausea or vomiting. She has had a little bit of nasal congestion and cold cough symptoms but states no fevers. Denies any new GI or urinary symptoms otherwise. Patient has had paracentesis in the past. States they have taken off 5 L in the past. Related Data Home Medications Medication Instructions Recorded Confirmed levothyroxine 25 mcg tablet 200 mcg PO QAM ##0 07/24/16 12/27/23 (Synthroid) pregabalin 50 mg capsule 50 mg PO DAILY 01/19/23 12/27/23 albuterol sulfate 90 mcg/actuation 2 puff inhalation DAILY 07/07/23 12/27/23 aerosol inhaler (ProAir HFA) doxepin 10 mg capsule 10 mg PO ONCE PM 07/07/23 12/27/23 sitagliptin phos 50 mg-metformin 50 - 1,000 tab PO DAILY 07/07/23 12/27/23 ER 1,000 mg tablet,extend rel 24h mp (Janumet XR) spironolactone 25 mg tablet 25 mg PO DAILY 07/07/23 07/07/23 tiotropium bromide 1.25 2 puff inhalation DAILY 07/07/23 12/27/23 mcg/actuation mist for inhalation (Spiriva Respimat) lactulose 10 gram/15 mL oral PO 12/27/23 solution patiromer calcium sorbitex 8.4 8.4 g PO DAILY 12/27/23 12/27/23 gram oral powder packet (Veltassa) Previous Rx's Medication Instructions Recorded furosemide 40 mg tablet (Lasix) 40 mg PO BID #10 tabs 08/14/23 blood sugar diagnostic (CareTouch #50 ea 12/02/23 Test Strip) blood-glucose meter (CareTouch #1 ea 12/02/23 Glucose Monitoring System kit) furosemide 20 mg tablet (Lasix) 20 mg PO DAILY #30 tabs 02/22/24 Allergies Allergy/AdvReac Type Severity Reaction Status Date / Time No Known Drug Allergies Allergy Verified 04/17/24 12:48 Review of Systems Review of Systems ROS Unobtainable: All systems reviewed & are unremarkable except as noted in HPI and below Patient History Social History marital status: Smoking Status: Current some day smoker Tobacco: How many years used: 56 alcohol intake: never Smoking Status: Current some day smoker tobacco type: cigarettes and vaping alcohol intake frequency: other Substance Use Type: does not use Exam Narrative Exam Narrative: GENERAL: Alert and oriented x three, obese female in mild distress. HEENT: Head normocephalic, atraumatic, EOMI, pupils reactive, face symmetric, moist mucous membranes NECK: Supple, full range of motion CARDIOVASCULAR: Regular rate and rhythm without murmurs, rubs or gallops. RESPIRATORY: Breath sounds equal bilaterally, no wheezes rales or rhonchi. ABDOMEN: Soft, nontender, distended and tight. Normoactive bowel sounds all 4 quadrants. No guarding or rebound, rigidity, no mass : No CVA tenderness EXTREMITIES: Normal range of motion, no clubbing. Neurovascularly intact NEUROLOGICAL: Cranial nerves II through XII grossly intact. Moving all extremities SKIN: Warm, dry, no petechiae, no rashes or lesions. Initial Vital Signs Initial Vital Signs: Vital Signs Temperature 98.3 F 04/17/24 12:43 Pulse Rate 89 04/17/24 12:43 Respiratory Rate 20 04/17/24 12:43 Blood Pressure 146/63 H 04/17/24 12:43 Pulse Oximetry 97 04/17/24 12:43 Oxygen Delivery Method Room Air 04/17/24 12:43 Course Orders Ordered: ED Orders 04/17/24 12:53 EKG-12 Lead Stat 04/17/24 13:10 Urinalysis and Microscopic Stat Urine Culture Stat 04/17/24 13:25 Complete Blood Count AUTO DIFF Stat Comprehensive Metabolic Panel Stat Lipase Stat Prothrombin Time INR Stat 04/17/24 15:44 US paracentesis Stat Ondansetron HCl (Ondansetron 4 Mg/2 Ml Inj) 4 mg IV NOW PRN PRN Reason: Nausea And Vomiting Ondansetron HCl (Ondansetron 4 Mg Odt) 4 mg PO NOW PRN PRN Reason: Nausea And Vomiting Vital Signs Vital signs: Vital Signs - 8 hr 04/17/24 12:43 04/17/24 15:41 04/17/24 15:41 Temperature 98.3 F Pulse Rate 89 84 Respiratory Rate 20 21 Blood Pressure 146/63 H 125/85 Pulse Oximetry 97 95 Oxygen Delivery Method Room Air Room Air 04/17/24 16:00 04/17/24 16:00 04/17/24 16:01 Temperature Pulse Rate 84 85 Respiratory Rate 22 22 Blood Pressure 133/60 133/60 Pulse Oximetry 92 93 Oxygen Delivery Method Room Air Room Air 04/17/24 16:30 04/17/24 16:31 04/17/24 16:31 Temperature Pulse Rate 85 84 Respiratory Rate 20 21 Blood Pressure 132/64 Pulse Oximetry Oxygen Delivery Method 04/17/24 16:55 04/17/24 16:55 04/17/24 17:00 Temperature Pulse Rate 82 Respiratory Rate 27 H Blood Pressure 134/64 133/62 Pulse Oximetry 98 Oxygen Delivery Method 04/17/24 17:00 04/17/24 17:05 04/17/24 17:05 Temperature Pulse Rate 85 82 Respiratory Rate 20 17 Blood Pressure 123/56 L Pulse Oximetry 96 95 Oxygen Delivery Method 04/17/24 17:10 04/17/24 17:10 04/17/24 17:15 Temperature Pulse Rate 82 82 Respiratory Rate 19 19 Blood Pressure 131/60 Pulse Oximetry 93 95 Oxygen Delivery Method Room Air 04/17/24 17:15 04/17/24 17:21 04/17/24 17:21 Temperature Pulse Rate 85 Respiratory Rate 22 Blood Pressure 127/60 130/61 Pulse Oximetry 92 Oxygen Delivery Method Room Air 04/17/24 17:25 04/17/24 17:25 04/17/24 17:30 Temperature Pulse Rate 84 84 Respiratory Rate 19 21 Blood Pressure 132/65 Pulse Oximetry 94 95 Oxygen Delivery Method 04/17/24 17:31 04/17/24 17:31 Temperature Pulse Rate 84 Respiratory Rate 23 Blood Pressure 117/59 L Pulse Oximetry 94 Oxygen Delivery Method Room Air MDM - Abdominal Pain Lab Data 04/17/24 13:25 04/17/24 13:25 Labs: Lab Results 04/17/24 04/17/24 Range/Units 13:10 13:25 WBC 9.2 (4.5-11.0) X10^3/uL RBC 4.36 (4.0-5.2) X10^6/uL Hgb 12.3 (12.0-16.0) g/dL Hct 37.5 (36-46) % MCV 86.0 (80-100) fL MCH 28.2 (26-34) PG MCHC 32.9 (30-36) % RDW 20.6 H (11.6-14.8) % Plt Count 159 (150-400) X10^3/uL Neut % (Auto) 71.5 (50-75) % Lymph % (Auto) 15.4 L (25-40) % [place] % (Auto) 8.0 (3-14) % Eos % (Auto) 3.8 (2-4) % Baso % (Auto) 1.3 (0-2) % Neut # (Auto) 6600 (4193-2120) /uL Lymph # (Auto) 1400 (9881-5200) /uL [place] # (Auto) 700 (0-900) /uL Eos # (Auto) 400 (0-450) /uL Baso # (Auto) 100 (0-100) /uL Platelet Estimate Adequate on smear Plt Morphology Comment RBC Morphology See below Anisocytosis 1+ H PT 12.5 (9.4-12.5) SECONDS INR 1.1 (0.9-1.3) Sodium 138 (137-145) mmol/L Potassium 4.3 (3.4-5.1) mmol/L Chloride 105 (98-107) mmol/L Carbon Dioxide 24 (22-32) mmol/L BUN 18 H (7-17) mg/dL Creatinine 1.44 H (0.52-1.04) mg/dL Estimated GFR 39 L (>60) mL/min BUN/Creatinine Ratio 12.5 (6-22) Glucose 150 H (80-110) mg/dL Calcium 8.6 (8.4-10.2) mg/dL Total Bilirubin 0.6 (0.2-1.3) mg/dL AST 39 H (14-36) IU/L ALT 20 (<35) IU/L Alkaline Phosphatase 166 H (38-126) U/L Total Protein 7.5 (6.3-8.2) g/dL Albumin 3.8 (3.5-5.0) g/dL Globulin 3.7 (1.7-4.1) g/dL Albumin/Globulin Ratio 1.0 (1.0-2.8) Lipase 135 (23-300) U/L Urine Color Yellow Urine Appearance Cloudy Urine pH 5.0 (4.5-8.0) Ur Specific [place] 1.025 (1.000-1.035) Urine Protein Trace H (Negative) Urine Glucose (UA) 3+ H (Negative) g/dL Urine Ketones Negative (NEGATIVE) Urine Occult Blood 1+ H (Negative) Urine Nitrate Negative (Negative) Urine Bilirubin Negative (NEGATIVE) Urine Urobilinogen 0.2 (0.2) E.U./dL Ur Leukocyte Esterase 1+ H (NEGATIVE) Urine RBC 1-5/hpf (0-5/HPF) Urine WBC 30-100/hpf H (0-5/HPF) Ur Squamous Epith Cells 5-10 /hpf H (0-5/HPF) Urine Bacteria Many (>30) H (None) Ur Culture Indicated? Specimen cultured Vol Urine Centrifuged 10ml (spun) ECG Data Attestation: I personally reviewed and interpreted this ECG as follows: Interpretation: Sinus rhythm with first-degree AV block rate 85 ID [id number] QRS of 126 QTC of 516, no acute ST elevation depression patient does have right bundle-branch block. Patient had 2 EKGs few minutes apart both shows sinus rhythm with right bundle-branch block. Post show a rate of 85, earlier EKG shows a ID [id number] QRS of 126 QTC of 506. No dynamic changes. [facility] Narrative Medical decision making narrative: Labs show white count of 9.2 hemoglobin of 12.3 platelets are 159 patient has been somewhat thrombocytopenic in the past in the 100-140 range. INR today is 1.1. Sodium, potassium, chloride and CO2 are normal, BUN 18 with a creatinine of 1.44 patient has ranged between 1.7 and 1.27 in the past. Glucose is 150. Bilirubin is 0.6 with an AST of 39 and ALT 20 alk-phos of 166 lipase is 135. EKG shows sinus rhythm with right bundle-branch block. Patient presents with complaint of increased ascites, fullness and discomfort. She was nontender no signs consistent with SBP. Vital signs are overall appropriate but patient would likely benefit from paracentesis. Radiology kindly performed paracentesis and she had 5 L removed fluid was dark yellow but clear. Patient feels improved afterwards. No significant blood pressure drops necessitating albumin. Patient states she will stay for 30 minutes and then we will head home. She notes she feels improved after paracentesis. Discharge Plan Departure Patient Disposition: Home Clinical Impression: Ascites Instructions: DI for Abdominal Paracentesis Activity Restrictions/Additional Instructions: Please follow up for recheck with your physician. Please return for fevers, any new redness or swelling at the site of your paracentesis, increasing abdominal pain, any vomiting, changes to mentation, persistent fluid leakage or other new or concerning changes. Prescriptions: No Action levothyroxine [Synthroid] 25 mcg tablet 200 mcg PO QAM Qty: 0 doxepin 10 mg capsule 10 mg PO ONCE PM spironolactone 25 mg Tablet 25 mg PO DAILY albuterol sulfate [ProAir HFA] 90 mcg/actuation HFA aerosol inhaler 2 puff INHALATION DAILY Patient Comments: [NO ORIGINAL SIG] Janumet XR 50-1,000 mg tablet, ER multiphase 24 hr 50 - 1,000 tab PO DAILY Spiriva Respimat 1.25 mcg/actuation mist 2 puff inhalation DAILY lactulose 10 gram/15 mL solution PO Veltassa 8.4 gram powder in packet 8.4 g PO DAILY furosemide [Lasix] 40 mg tablet 40 mg PO BID Qty: 10 0RF (DME) blood-glucose meter [CareTouch Glucose Monitoring] Kit See Rx Instructions .Route Qty: 1 0RF Rx Instructions: As directed (DME) CareTouch Test Strip Strip See Rx Instructions .Route Qty: 50 0RF Rx Instructions: As directed furosemide [Lasix] 20 mg tablet 20 mg PO DAILY Qty: 30 0RF pregabalin 50 mg capsule 50 mg PO DAILY Referrals: Rogers Iglesias DO [Primary Care Provider] - Stand Alone Forms: Patient Portal/API/Survey
== END 2024-04-17 18:20 | disposition home or self-care (01) ==
PROVIDERS: Emergency Provider Emergency Medicine; PCP Family Medicine
DX: R18.8 Other ascites (principal); R06.02 Shortness of breath; I44.0 Atrioventricular block, first degree; R79.89 Other specified abnormal findings of blood chemistry
CPT/HCPCS: 36415; 49083; 80053; 81001; 83690; 85025; 85610; 87086; 93005; 99284

== ENCOUNTER 2024-05-08 11:31 | Emergency (ER) | payer MEDICARE, OTHER, SELFPAY ==
[2024-05-08] VITALS (21 sets, daily range): BP systolic 110–149; BP diastolic 56–70; PULSE 63–87; RESP 18; TEMP 36.2; O2SAT 92–100; BMI 42.0
--- NOTE | 2024-05-08 12:07 | DI.US.S_ITS ---
PROCEDURE: US ABDOMEN LIMITED INDICATIONS: Marking for paracentesis TECHNIQUE: Real-time focused scanning was performed of the abdomen, with image documentation. COMPARISON: [facility], , US ABDOMEN LIMITED, 01/24/2024, 14:25. FINDINGS/IMPRESSION: Targeted ultrasound of the abdomen for ascites marking. Large volume ascites. Dictated by: Jose Chandler M.D. on 05/08/2024 at 13:37 Approved by: Jose Chandler M.D. on 05/08/2024 at 13:38
[2024-05-08 12:42] LABS: INR 1.1 (0.9-1.3); Prothrombin Time 12.3 SECONDS (9.4-12.5)
[2024-05-08 12:43] LABS: Add Manual Diff / Slide Review NO; Basophils Absolute Auto 100 /uL (0-100); Basophils Percent Auto 0.8 % (0-2); Eosinophils Absolute Auto 300 /uL (0-450); Eosinophils Percent Auto 3.1 % (2-4); Hematocrit 37.1 % (36-46); Hemoglobin 11.9 g/dL (12.0-16.0); Lymphocytes Absolute Auto 800 /uL (1100-4500); Lymphocytes Percent Auto 9.6 % (25-40); Mean Corpuscular HGB Conc 32.2 % (30-36); Mean Corpuscular Hemoglobin 27.6 PG (26-34); Mean Corpuscular Volume 85.6 fL (80-100); Monocytes Absolute Auto 600 /uL (0-900); Monocytes Percent Auto 6.5 % (3-14); Neutrophils Absolute Auto 6800 /uL (1500-7000); Platelet Count 156 X10^3/uL (150-400); Red Blood Cell Count 4.33 X10^6/uL (4.0-5.2); Red Cell Distribution Width 20.9 % (11.6-14.8); White Blood Cell Count 8.5 X10^3/uL (4.5-11.0)
[2024-05-08 12:48] LABS: Alanine Aminotransferase 24 IU/L (<35); Albumin 3.5 g/dL (3.5-5.0); Alkaline Phosphatase 181 U/L (38-126); Aspartate Aminotransferase 41 IU/L (14-36); BUN Creatinine Ratio 11.3 (6-22); Bilirubin Total 0.6 mg/dL (0.2-1.3); Blood Urea Nitrogen 23 mg/dL (7-17); Calcium 8.2 mg/dL (8.4-10.2); Carbon Dioxide 27 mmol/L (22-32); Chloride 104 mmol/L (98-107); Estimated Glomerular Filt Rate 25 mL/min (>60); Globulin 3.4 g/dL (1.7-4.1); Glucose 186 mg/dL (80-110); HEMOLYSIS < 15 (0-50); Potassium 4.4 mmol/L (3.4-5.1); Sodium 138 mmol/L (137-145); Total Protein 6.9 g/dL (6.3-8.2)
[2024-05-08 13:12] LABS: Anisocytosis 1+
--- NOTE | 2024-05-08 13:40 | ED_ITS ---
HPI - Abdominal Pain General Chief Complaint: Abdominal Pain Stated Complaint: needs a tap Time Seen by Provider: 05/08/24 13:39 History of Present Illness HPI narrative: Patient 74-year-old female history of nonalcoholic cirrhosis with frequent paracentesis chronic kidney disease presenting to here today with abdominal pain and swelling. She looks like she has had paracentesis April 17. She reports lower extremity swelling and knee pain difficult to get around. No fever or chest pain she is minimal shortness of breath. She just feels very swollen. She says they have taken off 5 L in the past. She is followed by GI at [facility] she has an appointment to see him but not until June. Related Data Home Medications Medication Instructions Recorded Confirmed levothyroxine 25 mcg tablet 200 mcg PO QAM ##0 07/24/16 12/27/23 (Synthroid) pregabalin 50 mg capsule 50 mg PO DAILY 01/19/23 12/27/23 albuterol sulfate 90 mcg/actuation 2 puff inhalation DAILY 07/07/23 12/27/23 aerosol inhaler (ProAir HFA) doxepin 10 mg capsule 10 mg PO ONCE PM 07/07/23 12/27/23 sitagliptin phos 50 mg-metformin 50 - 1,000 tab PO DAILY 07/07/23 12/27/23 ER 1,000 mg tablet,extend rel 24h mp (Janumet XR) spironolactone 25 mg tablet 25 mg PO DAILY 07/07/23 07/07/23 tiotropium bromide 1.25 2 puff inhalation DAILY 07/07/23 12/27/23 mcg/actuation mist for inhalation (Spiriva Respimat) lactulose 10 gram/15 mL oral PO 12/27/23 solution patiromer calcium sorbitex 8.4 8.4 g PO DAILY 12/27/23 12/27/23 gram oral powder packet (Veltassa) Previous Rx's Medication Instructions Recorded furosemide 40 mg tablet (Lasix) 40 mg PO BID #10 tabs 08/14/23 blood sugar diagnostic (CareTouch #50 ea 12/02/23 Test Strip) blood-glucose meter (CareTouch #1 ea 12/02/23 Glucose Monitoring System kit) furosemide 20 mg tablet (Lasix) 20 mg PO DAILY #30 tabs 02/22/24 Allergies Allergy/AdvReac Type Severity Reaction Status Date / Time No Known Drug Allergies Allergy Verified 04/17/24 12:48 Patient History Social History marital status: Smoking Status: Current some day smoker Tobacco: How many years used: 56 alcohol intake: never Smoking Status: Current some day smoker tobacco type: cigarettes and vaping alcohol intake frequency: other Substance Use Type: does not use Exam Initial Vital Signs Initial Vital Signs: Vital Signs Temperature 97.2 F L 05/08/24 11:52 Pulse Rate 77 05/08/24 11:52 Respiratory Rate 18 05/08/24 11:52 Blood Pressure 149/64 H 05/08/24 11:52 Pulse Oximetry 95 05/08/24 11:52 Oxygen Delivery Method Room Air 05/08/24 11:52 GENERAL: Alert 74-year-old female appears mildly uncomfortable and in no acute distress. HEENT: Head atraumatic,EOMI, pupils reactive, face symmetric, moist mucous membranes CARDIOVASCULAR: Regular rate and rhythm without murmurs, rubs or gallops. RESPIRATORY: Breath sounds equal bilaterally, no wheezes rales or rhonchi. ABDOMEN: Soft, positive fluid wave distention EXTREMITIES: Normal range of motion, no clubbing or edema. Neurovascularly intact NEUROLOGICAL: Alert and oriented x4.Normal gait and speech. SKIN: Warm, dry, no laceration, no petechiae, no rashes or lesions. Procedures Laceration Repair Laceration 1: Site: other (abdomen) Local Anesthetic: lidocaine 1% Skin layer closed with: nylon Skin layer suture size: 5-0 Number of sutures: 1 Technique: simple, interrupted Paracentesis Time Out Performed: Yes Indication: Ascites Procedure: therapeutic paracentesis Local Anesthetic: lidocaine 1% Amount of anesthesia used (mL): 3 Preparation: sterile prep and drape and Blade used to make siva in skin (18G needle used only) Fluid: clear (5500mL drained) Post Procedure Exam: awake, alert, normal BP, normal HR and normal SpO2 Patient Tolerated Procedure: Well and No complications Course Orders Ordered: ED Orders 05/08/24 12:25 Complete Blood Count AUTO DIFF Stat Comprehensive Metabolic Panel Stat Prothrombin Time INR Stat Vital Signs Vital signs: Vital Signs - 8 hr 05/08/24 13:30 05/08/24 13:30 05/08/24 14:36 Pulse Rate 86 Blood Pressure 144/65 H 143/70 H Pulse Oximetry 92 Oxygen Delivery Method 05/08/24 14:36 05/08/24 14:42 05/08/24 14:42 Pulse Rate 84 84 Blood Pressure 130/60 Pulse Oximetry 97 97 Oxygen Delivery Method 05/08/24 14:45 05/08/24 14:45 05/08/24 14:50 Pulse Rate 80 82 Blood Pressure 127/60 Pulse Oximetry 98 99 Oxygen Delivery Method 05/08/24 14:50 05/08/24 14:55 05/08/24 14:55 Pulse Rate 81 Blood Pressure 118/67 118/67 Pulse Oximetry 97 Oxygen Delivery Method 05/08/24 15:00 05/08/24 15:00 05/08/24 15:05 Pulse Rate 80 Blood Pressure 121/65 120/58 L Pulse Oximetry 98 Oxygen Delivery Method 05/08/24 15:05 05/08/24 15:10 05/08/24 15:10 Pulse Rate 79 80 Blood Pressure 122/56 L Pulse Oximetry 99 99 Oxygen Delivery Method 05/08/24 15:15 05/08/24 15:15 05/08/24 15:20 Pulse Rate 79 Blood Pressure 127/60 123/61 Pulse Oximetry 99 Oxygen Delivery Method 05/08/24 15:20 05/08/24 15:25 05/08/24 15:25 Pulse Rate 80 81 Blood Pressure 123/61 Pulse Oximetry 99 97 Oxygen Delivery Method 05/08/24 15:30 05/08/24 15:30 05/08/24 15:35 Pulse Rate 78 Blood Pressure 124/60 118/56 L Pulse Oximetry 100 Oxygen Delivery Method 05/08/24 15:35 05/08/24 15:40 05/08/24 15:40 Pulse Rate 81 80 Blood Pressure 110/57 L Pulse Oximetry 99 99 Oxygen Delivery Method 05/08/24 15:46 05/08/24 15:46 05/08/24 15:50 Pulse Rate 79 Blood Pressure 144/62 H 134/60 Pulse Oximetry 98 Oxygen Delivery Method 05/08/24 15:50 Pulse Rate 80 Blood Pressure Pulse Oximetry 98 Oxygen Delivery Method Room Air MDM - Abdominal Pain Lab Data 05/08/24 12:25 05/08/24 12:25 Labs: Lab Results 05/08/24 Range/Units 12:25 WBC 8.5 (4.5-11.0) X10^3/uL RBC 4.33 (4.0-5.2) X10^6/uL Hgb 11.9 L (12.0-16.0) g/dL Hct 37.1 (36-46) % MCV 85.6 (80-100) fL MCH 27.6 (26-34) PG MCHC 32.2 (30-36) % RDW 20.9 H (11.6-14.8) % Plt Count 156 (150-400) X10^3/uL Neut % (Auto) 80.0 H (50-75) % Lymph % (Auto) 9.6 L (25-40) % [place] % (Auto) 6.5 (3-14) % Eos % (Auto) 3.1 (2-4) % Baso % (Auto) 0.8 (0-2) % Neut # (Auto) 6800 (9249-0256) /uL Lymph # (Auto) 800 L (1575-8912) /uL [place] # (Auto) 600 (0-900) /uL Eos # (Auto) 300 (0-450) /uL Baso # (Auto) 100 (0-100) /uL RBC Morphology See below Anisocytosis 1+ H PT 12.3 (9.4-12.5) SECONDS INR 1.1 (0.9-1.3) Sodium 138 (137-145) mmol/L Potassium 4.4 (3.4-5.1) mmol/L Chloride 104 (98-107) mmol/L Carbon Dioxide 27 (22-32) mmol/L BUN 23 H (7-17) mg/dL Creatinine 2.04 H (0.52-1.04) mg/dL Estimated GFR 25 L (>60) mL/min BUN/Creatinine Ratio 11.3 (6-22) Glucose 186 H (80-110) mg/dL Calcium 8.2 L (8.4-10.2) mg/dL Total Bilirubin 0.6 (0.2-1.3) mg/dL AST 41 H (14-36) IU/L ALT 24 (<35) IU/L Alkaline Phosphatase 181 H (38-126) U/L Total Protein 6.9 (6.3-8.2) g/dL Albumin 3.5 (3.5-5.0) g/dL Globulin 3.4 (1.7-4.1) g/dL Albumin/Globulin Ratio 1.0 (1.0-2.8) Imaging Data US - abdomen: Radiologist's Impression: PROCEDURE: US ABDOMEN LIMITED INDICATIONS: Marking for paracentesis TECHNIQUE: Real-time focused scanning was performed of the abdomen, with image documentation. COMPARISON: [facility], [place], US ABDOMEN LIMITED, 01/24/2024, 14:25. FINDINGS/IMPRESSION: Targeted ultrasound of the abdomen for ascites marking. Large volume ascites. Dictated by: Jose Chandler M.D. on 05/08/2024 at 13:37 MDM Narrative Medical decision making narrative: 74-year-old female with history of nonalcoholic liver disease chronic kidney disease presenting today with abdominal distention and recurrent ascites. She is followed by GI. It seems as though she comes to the ED once a month or more for a paracentesis. He does not yet have regularly scheduled paracentesis or pigtail catheter. She has no fever or significant pain but feels very bloated in his uncomfortable Blood work has been reviewed WBC 8.5 hemoglobin 11.9 hematocrit 37.1 platelets 156 CMP does show increasing creatinine at 2.0 it was previously 1.44, sodium 138 potassium 4.4 chloride 104 carbon dioxide 27 Patient drained 5500 mL. She tolerated the procedure well was not hypotensive. Long discussion with patient and family need for scheduled paracentesis and drainage. They understand and agree. Patient does have increasing creatinine there is mild concern for hepatorenal syndrome. Meld score is 14, at this time she needs to follow-up with GI no need for acute transfer or further intervention at this time. Pressure is stable and she is mentating appropriately. Patient had significant leaking at site of paracentesis which happens to her frequently she says she can not go knee were for a couple of days because it continuously drains they requested when stitch be placed. 1 stitch was placed in draining did slow significantly. MELD Na (UNOS/OPTN) from [place] [employer].Silent Communication on 05/08/2024 All calculations should be rechecked by clinician prior to use RESULT SUMMARY: 14 points MELD Score (2016)* 6.0% Estimated 3-Month Mortality INPUTS: Dialysis at least twice in the past week ?> 0 = No Creatinine ?> 2 mg/dL Bilirubin ?> 0.6 mg/dL INR ?> 1.1 Sodium ?> 138 mEq/L Discharge Plan Departure Patient Disposition: Home Clinical Impression: Ascites Instructions: Ascites Activity Restrictions/Additional Instructions: *You have been diagnosed with ascites acute kidney injury *What to do: At this time it please talk with Dr. Farrell about getting your kidney function rechecked either in 2 days on Wednesday or next week on Wednesday. You will need to talk with your GI doctor. I do recommend that you get regularly scheduled paracentesis or possibly a pigtail catheter. Have suture removed in about 5-7 days *Continue to take medications as directed *Follow up with your primary care provider in 2-3 days or call [phone] *Return to ER if you should have fever increasing confusion weakness or any new, worsening or concerning symptoms Prescriptions: No Action levothyroxine [Synthroid] 25 mcg tablet 200 mcg PO QAM Qty: 0 doxepin 10 mg capsule 10 mg PO ONCE PM spironolactone 25 mg Tablet 25 mg PO DAILY albuterol sulfate [ProAir HFA] 90 mcg/actuation HFA aerosol inhaler 2 puff INHALATION DAILY Patient Comments: [NO ORIGINAL SIG] Janumet XR 50-1,000 mg tablet, ER multiphase 24 hr 50 - 1,000 tab PO DAILY Spiriva Respimat 1.25 mcg/actuation mist 2 puff inhalation DAILY lactulose 10 gram/15 mL solution PO Veltassa 8.4 gram powder in packet 8.4 g PO DAILY furosemide [Lasix] 40 mg tablet 40 mg PO BID Qty: 10 0RF (DME) blood-glucose meter [CareTouch Glucose Monitoring] Kit See Rx Instructions .Route Qty: 1 0RF Rx Instructions: As directed (DME) CareTouch Test Strip Strip See Rx Instructions .Route Qty: 50 0RF Rx Instructions: As directed furosemide [Lasix] 20 mg tablet 20 mg PO DAILY Qty: 30 0RF pregabalin 50 mg capsule 50 mg PO DAILY Referrals: Rogers Iglesias DO [Primary Care Provider] - Stand Alone Forms: Patient Portal/API/Survey
== END 2024-05-08 16:20 | disposition home or self-care (01) ==
PROVIDERS: Emergency Provider Emergency Medicine; PCP Family Medicine
DX: R18.8 Other ascites (principal)
CPT/HCPCS: 36415; 49082; 76705; 80053; 85025; 85610; 99284

== ENCOUNTER 2024-05-29 12:10 | Emergency (ER) | payer MEDICARE, OTHER, SELFPAY ==
[2024-05-29] VITALS (11 sets, daily range): BP systolic 107–147; BP diastolic 60–76; PULSE 76–91; RESP 16–20; TEMP 36.3; O2SAT 90–99
--- NOTE | 2024-05-29 12:54 | DI.US.S_ITS ---
PROCEDURE: US ABDOMEN LIMITED INDICATIONS: yudelka for ascites TECHNIQUE: Real-time focused scanning was performed of the abdomen, with image documentation. COMPARISON: [facility], , US ABDOMEN LIMITED, 05/08/2024, 12:28. FINDINGS: The patient was marked within the right lower quadrant and the left lower quadrant. The fluid begins 2.6 cm deep to the skin surface on both sides. IMPRESSION: Ultrasound guided skin marking, for performance of a paracentesis. Dictated by: Mario Mathis M.D. on 05/29/2024 at 12:24 Approved by: Mario Mathis M.D. on 05/29/2024 at 12:25
[2024-05-29 13:36] LABS: Add Manual Diff / Slide Review SLIDE REVIEW; Basophils Absolute Auto 200 /uL (0-100); Basophils Percent Auto 1.9 % (0-2); Eosinophils Absolute Auto 300 /uL (0-450); Eosinophils Percent Auto 3.4 % (2-4); Hematocrit 41.3 % (36-46); Hemoglobin 13.3 g/dL (12.0-16.0); Lymphocytes Absolute Auto 1000 /uL (1100-4500); Lymphocytes Percent Auto 10.4 % (25-40); Mean Corpuscular HGB Conc 32.2 % (30-36); Mean Corpuscular Hemoglobin 27.8 PG (26-34); Mean Corpuscular Volume 86.4 fL (80-100); Monocytes Absolute Auto 800 /uL (0-900); Monocytes Percent Auto 8.7 % (3-14); Neutrophils Absolute Auto 7000 /uL (1500-7000); Neutrophils Percent Auto 75.6 % (50-75); Platelet Count 155 X10^3/uL (150-400); Red Blood Cell Count 4.78 X10^6/uL (4.0-5.2); Red Cell Distribution Width 22.1 % (11.6-14.8); White Blood Cell Count 9.3 X10^3/uL (4.5-11.0)
[2024-05-29 13:41] LABS: INR 1.1 (0.9-1.3); Prothrombin Time 12.3 SECONDS (9.4-12.5)
[2024-05-29 13:44] LABS: PTT Partial Thromboplastin Tim 36 SECONDS (25.1-36.5)
[2024-05-29 13:45] LABS: Alanine Aminotransferase 24 IU/L (<35); Albumin 3.8 g/dL (3.5-5.0); Alkaline Phosphatase 164 U/L (38-126); Aspartate Aminotransferase 48 IU/L (14-36); BUN Creatinine Ratio 12.1 (6-22); Bilirubin Total 0.8 mg/dL (0.2-1.3); Blood Urea Nitrogen 19 mg/dL (7-17); Calcium 8.3 mg/dL (8.4-10.2); Carbon Dioxide 26 mmol/L (22-32); Chloride 103 mmol/L (98-107); Estimated Glomerular Filt Rate 35 mL/min (>60); Globulin 3.8 g/dL (1.7-4.1); Glucose 152 mg/dL (80-110); HEMOLYSIS 48 (0-50); Potassium 4.7 mmol/L (3.4-5.1); Sodium 135 mmol/L (137-145); Total Protein 7.6 g/dL (6.3-8.2)
[2024-05-29 14:00] LABS: Anisocytosis 2+
--- NOTE | 2024-05-29 14:48 | ED_ITS ---
HPI - Abdominal Pain General Chief Complaint: Abdominal Pain Stated Complaint: needs tap Time Seen by Provider: 05/29/24 14:45 Source: patient Mode of arrival: Wheelchair History of Present Illness HPI narrative: Patient is a 74-year-old female history of nonalcoholic cirrhosis with frequent paracentesis chronic kidney disease presenting today with increased abdominal swelling. She has been trying to get into GI but does not have an appointment yet. She last had a paracentesis on May 08 5500 mL were removed previous to that it was April 17. He was having frequent regular paracentesis done. Related Data Home Medications Medication Instructions Recorded Confirmed levothyroxine 25 mcg tablet 200 mcg PO QAM ##0 07/24/16 12/27/23 (Synthroid) pregabalin 50 mg capsule 50 mg PO DAILY 01/19/23 12/27/23 albuterol sulfate 90 mcg/actuation 2 puff inhalation DAILY 07/07/23 12/27/23 aerosol inhaler (ProAir HFA) doxepin 10 mg capsule 10 mg PO ONCE PM 07/07/23 12/27/23 sitagliptin phos 50 mg-metformin 50 - 1,000 tab PO DAILY 07/07/23 12/27/23 ER 1,000 mg tablet,extend rel 24h mp (Janumet XR) spironolactone 25 mg tablet 25 mg PO DAILY 07/07/23 07/07/23 tiotropium bromide 1.25 2 puff inhalation DAILY 07/07/23 12/27/23 mcg/actuation mist for inhalation (Spiriva Respimat) lactulose 10 gram/15 mL oral PO 12/27/23 solution patiromer calcium sorbitex 8.4 8.4 g PO DAILY 12/27/23 12/27/23 gram oral powder packet (Veltassa) Previous Rx's Medication Instructions Recorded furosemide 40 mg tablet (Lasix) 40 mg PO BID #10 tabs 08/14/23 blood sugar diagnostic (CareTouch #50 ea 12/02/23 Test Strip) blood-glucose meter (CareTouch #1 ea 12/02/23 Glucose Monitoring System kit) furosemide 20 mg tablet (Lasix) 20 mg PO DAILY #30 tabs 02/22/24 Allergies Allergy/AdvReac Type Severity Reaction Status Date / Time No Known Drug Allergies Allergy Verified 05/29/24 12:22 Patient History Social History marital status: Smoking Status: Current some day smoker Tobacco: How many years used: 56 alcohol intake: never Smoking Status: Current some day smoker tobacco type: cigarettes and vaping alcohol intake frequency: other Exam Initial Vital Signs Initial Vital Signs: Vital Signs Temperature 97.4 F L 05/29/24 12:22 Pulse Rate 83 05/29/24 12:22 Respiratory Rate 20 05/29/24 12:22 Blood Pressure 107/63 05/29/24 12:22 Pulse Oximetry 97 05/29/24 12:22 Oxygen Delivery Method Room Air 05/29/24 12:22 GENERAL: Alert pleasant well-appearing 74-year-old female CARDIOVASCULAR: peripheral pulses in tact, cap refill <2 sec RESPIRATORY: No respiratory distress, speaks in full sentences without difficulty ABDOMEN: Soft, obese mildly distended positive fluid wave EXTREMITIES: Normal range of motion, no clubbing or edema. Neurovascularly intact NEUROLOGICAL: Cranial nerves II through XII grossly intact. Normal gait and speech. SKIN: Warm, dry, no petechiae, no rashes or lesions. Procedures Laceration Repair Laceration 1: Site: other (abdomen) Side (If applicable): left Size (cm): 0.01 Description: other (pin point) Depth: simple, single layer Skin layer closed with: nylon Skin layer suture size: 4-0 Number of sutures: 2 Technique: simple, interrupted Paracentesis Time of procedure: 15:04 Time Out Performed: Yes Indication: Ascites Procedure: therapeutic paracentesis Local Anesthetic: lidocaine 1% Amount of anesthesia used (mL): 4 Preparation: sterile prep and drape and Blade used to make siva in skin (18g needle) Fluid: clear Post Procedure Exam: awake, alert, normal BP, normal HR and normal SpO2 Patient Tolerated Procedure: Well and No complications Course Orders Ordered: ED Orders 05/29/24 12:54 US abdomen limited Stat 05/29/24 13:20 CBC Auto Diff [Complete Blood Count AUTO DIFF] Stat CMP [Comprehensive Metabolic Panel] Stat PTT Partial Thromboplastin [place] Stat Prothrombin Time INR Stat Vital Signs Vital signs: Vital Signs - 8 hr 05/29/24 12:22 05/29/24 13:06 05/29/24 13:06 Temperature 97.4 F L Pulse Rate 83 89 Respiratory Rate 20 Blood Pressure 107/63 147/65 H Pulse Oximetry 97 95 Oxygen Delivery Method Room Air 05/29/24 13:30 05/29/24 13:30 05/29/24 14:00 Temperature Pulse Rate 82 Respiratory Rate Blood Pressure 124/61 143/65 H Pulse Oximetry 97 Oxygen Delivery Method Room Air 05/29/24 14:00 05/29/24 14:30 05/29/24 14:30 Temperature Pulse Rate 87 86 Respiratory Rate Blood Pressure 130/76 Pulse Oximetry 90 L 92 Oxygen Delivery Method Room Air 05/29/24 14:45 05/29/24 14:45 05/29/24 15:00 Temperature Pulse Rate 91 H Respiratory Rate Blood Pressure 127/65 121/70 Pulse Oximetry 94 Oxygen Delivery Method 05/29/24 15:00 05/29/24 15:10 05/29/24 15:10 Temperature Pulse Rate 84 81 Respiratory Rate 16 Blood Pressure 123/66 Pulse Oximetry 97 97 Oxygen Delivery Method Room Air 05/29/24 15:20 05/29/24 15:20 05/29/24 15:30 Temperature Pulse Rate 82 82 Respiratory Rate Blood Pressure 122/62 Pulse Oximetry 98 99 Oxygen Delivery Method 05/29/24 15:30 05/29/24 15:40 05/29/24 15:40 Temperature Pulse Rate 76 Respiratory Rate Blood Pressure 128/60 128/61 Pulse Oximetry 97 Oxygen Delivery Method MDM - Abdominal Pain Lab Data 05/29/24 13:20 05/29/24 13:20 Labs: Lab Results 05/29/24 Range/Units 13:20 WBC 9.3 (4.5-11.0) X10^3/uL RBC 4.78 (4.0-5.2) X10^6/uL Hgb 13.3 (12.0-16.0) g/dL Hct 41.3 (36-46) % MCV 86.4 (80-100) fL MCH 27.8 (26-34) PG MCHC 32.2 (30-36) % RDW 22.1 H (11.6-14.8) % Plt Count 155 (150-400) X10^3/uL Neut % (Auto) 75.6 H (50-75) % Lymph % (Auto) 10.4 L (25-40) % [place] % (Auto) 8.7 (3-14) % Eos % (Auto) 3.4 (2-4) % Baso % (Auto) 1.9 (0-2) % Neut # (Auto) 7000 (3181-6446) /uL Lymph # (Auto) 1000 L (9848-8053) /uL [place] # (Auto) 800 (0-900) /uL Eos # (Auto) 300 (0-450) /uL Baso # (Auto) 200 H (0-100) /uL RBC Morphology See below Anisocytosis 2+ H PT 12.3 (9.4-12.5) SECONDS INR 1.1 (0.9-1.3) APTT 36 (25.1-36.5) SECONDS Sodium 135 L (137-145) mmol/L Potassium 4.7 (3.4-5.1) mmol/L Chloride 103 (98-107) mmol/L Carbon Dioxide 26 (22-32) mmol/L BUN 19 H (7-17) mg/dL Creatinine 1.57 H (0.52-1.04) mg/dL Estimated GFR 35 L (>60) mL/min BUN/Creatinine Ratio 12.1 (6-22) Glucose 152 H (80-110) mg/dL Calcium 8.3 L (8.4-10.2) mg/dL Total Bilirubin 0.8 (0.2-1.3) mg/dL AST 48 H (14-36) IU/L ALT 24 (<35) IU/L Alkaline Phosphatase 164 H (38-126) U/L Total Protein 7.6 (6.3-8.2) g/dL Albumin 3.8 (3.5-5.0) g/dL Globulin 3.8 (1.7-4.1) g/dL Albumin/Globulin Ratio 1.0 (1.0-2.8) Imaging Data US - abdomen: Radiologist's Impression: PROCEDURE: US ABDOMEN LIMITED INDICATIONS: yudelka for ascites TECHNIQUE: Real-time focused scanning was performed of the abdomen, with image documentation. COMPARISON: [facility], , US ABDOMEN LIMITED, 05/08/2024, 12:28. FINDINGS: The patient was marked within the right lower quadrant and the left lower quadrant. The fluid begins 2.6 cm deep to the skin surface on both sides. IMPRESSION: Ultrasound guided skin marking, for performance of a paracentesis. Dictated by: Mario Mathis M.D. on 05/29/2024 at 12:24 MDM Narrative Medical decision making narrative: MDM CC: Abdominal pain distention Complicating co-morbidities: Nonalcoholic cirrhosis frequent paracentesis Medical records reviewed: Previous ED visits reviewed Differential considered: Ascites, spontaneous bacterial peritonitis Exam documented above, pertinent findings include: Positive fluid wave minimal abdominal pain Lab Test results independently reviewed as above. Pertinent findings: Hemoglobin 30.3 hematocrit 41.3 platelets 150 INR 1.1, PTT 36 Imaging studies independently reviewed: Ascites marked left side largest pocket Consultations: None Treatments: Paracentesis 5000 cc Re-evaluations: Patient feels better after paracentesis. Site was sutured for ongoing leakage. We did this last time it seemed to work but now she still has a little leakage despite sutures. She understands that she needs have the sutures removed Discussion: 74-year-old female history of cirrhosis with frequent ascites frequent paracentesis. Has now been to the ED least 4 times for paracentesis over the last 2-3 months. No evidence of infection or SBP. She tolerated fluid being removed easily Discharge Plan Departure Patient Disposition: Home Clinical Impression: Ascites Instructions: Ascites Activity Restrictions/Additional Instructions: *You have been diagnosed with ascites *What to do: Please follow-up with GI also talk to your primary about having scheduled paracentesis primary can arrange this as well *Continue to take medications as directed *Follow up with your primary care provider in 2-3 days or call [phone] *Return to ER if you should have increasing abdominal pain shortness of breath weakness fever or any new, worsening or concerning symptoms Prescriptions: No Action levothyroxine [Synthroid] 25 mcg tablet 200 mcg PO QAM Qty: 0 doxepin 10 mg capsule 10 mg PO ONCE PM spironolactone 25 mg Tablet 25 mg PO DAILY albuterol sulfate [ProAir HFA] 90 mcg/actuation HFA aerosol inhaler 2 puff INHALATION DAILY Patient Comments: [NO ORIGINAL SIG] Janumet XR 50-1,000 mg tablet, ER multiphase 24 hr 50 - 1,000 tab PO DAILY Spiriva Respimat 1.25 mcg/actuation mist 2 puff inhalation DAILY lactulose 10 gram/15 mL solution PO Veltassa 8.4 gram powder in packet 8.4 g PO DAILY furosemide [Lasix] 40 mg tablet 40 mg PO BID Qty: 10 0RF (DME) blood-glucose meter [CareTouch Glucose Monitoring] Kit See Rx Instructions .Route Qty: 1 0RF Rx Instructions: As directed (DME) CareTouch Test Strip Strip See Rx Instructions .Route Qty: 50 0RF Rx Instructions: As directed furosemide [Lasix] 20 mg tablet 20 mg PO DAILY Qty: 30 0RF pregabalin 50 mg capsule 50 mg PO DAILY Referrals: Rogers Iglesias DO [Primary Care Provider] - Stand Alone Forms: Patient Portal/API/Survey
--- NOTE | 2024-05-29 15:54 | PC.NURSE ---
Paracentesis placed by Dr Boggs. Removed 5 L of fluid. Pt reports feeling much better. Appears in NAD. Up ambulating in [place] to BR with assisting. Bandage placed to left side of abdomen for drainage.
== END 2024-05-29 16:07 | disposition home or self-care (01) ==
PROVIDERS: Emergency Provider Emergency Medicine; PCP Family Medicine
DX: R18.8 Other ascites (principal)
CPT/HCPCS: 36415; 49082; 76705; 80053; 85025; 85610; 85730; 99283; 99284

== ENCOUNTER 2024-06-13 13:09 | Emergency (ER) | payer MEDICARE, OTHER, SELFPAY ==
[2024-06-13] VITALS (11 sets, daily range): BP systolic 131–152; BP diastolic 58–72; PULSE 85–92; RESP 15–20; TEMP 36.6; O2SAT 93–98
--- NOTE | 2024-06-13 13:50 | DI.US.S_ITS ---
PROCEDURE: US ABDOMEN LIMITED INDICATIONS: ascites yudelka please and thank you TECHNIQUE: Real-time focused scanning was performed of the abdomen, with image documentation. COMPARISON: [facility], , US ABDOMEN LIMITED, 05/29/2024, 13:13. FINDINGS: Moderate ascites fluid is seen in all 4 quadrants of abdomen. Left lower quadrant abdominal wall was marked under ultrasound guidance for paracentesis to be performed by ordering physician. IMPRESSION: Moderate ascites fluid in abdomen. Left lower quadrant anterior abdominal wall was marked for potential paracentesis to be performed by ordering physician. Dictated by: Reynaldo Yan M.D. on 06/13/2024 at 14:53 Approved by: Reynaldo Yan M.D. on 06/13/2024 at 14:54
--- NOTE | 2024-06-13 13:53 | ED.RECABL ---
HPI - Recheck/Abnormal Lab/Rx General Chief Complaint: Recheck/Abnormal Lab/Rx Stated Complaint: per pt, Needs fluids removed from stomach Time Seen by Provider: 06/13/24 13:14 Source: patient Mode of arrival: Ambulatory History of Present Illness HPI narrative: Patient 74-year-old female history of nonalcoholic cirrhosis with ascites frequent paracentesis presenting today again with abdominal pain and swelling. I have seen her many times in for paracentesis seems to be about every 2 weeks. She has no fever or chills. She has been trying to get into GI I guess she finally does have an appointment on June [address]Justin Ulloa. Related Data Home Medications Medication Instructions Recorded Confirmed levothyroxine 25 mcg tablet 200 mcg PO QAM ##0 07/24/16 12/27/23 (Synthroid) pregabalin 50 mg capsule 50 mg PO DAILY 01/19/23 12/27/23 albuterol sulfate 90 mcg/actuation 2 puff inhalation DAILY 07/07/23 12/27/23 aerosol inhaler (ProAir HFA) doxepin 10 mg capsule 10 mg PO ONCE PM 07/07/23 12/27/23 sitagliptin phos 50 mg-metformin 50 - 1,000 tab PO DAILY 07/07/23 12/27/23 ER 1,000 mg tablet,extend rel 24h mp (Janumet XR) spironolactone 25 mg tablet 25 mg PO DAILY 07/07/23 07/07/23 tiotropium bromide 1.25 2 puff inhalation DAILY 07/07/23 12/27/23 mcg/actuation mist for inhalation (Spiriva Respimat) lactulose 10 gram/15 mL oral PO 12/27/23 solution patiromer calcium sorbitex 8.4 8.4 g PO DAILY 12/27/23 12/27/23 gram oral powder packet (Veltassa) Previous Rx's Medication Instructions Recorded furosemide 40 mg tablet (Lasix) 40 mg PO BID #10 tabs 08/14/23 blood sugar diagnostic (CareTouch #50 ea 12/02/23 Test Strip) blood-glucose meter (CareTouch #1 ea 12/02/23 Glucose Monitoring System kit) furosemide 20 mg tablet (Lasix) 20 mg PO DAILY #30 tabs 02/22/24 Allergies Allergy/AdvReac Type Severity Reaction Status Date / Time No Known Drug Allergies Allergy Verified 06/13/24 13:21 Patient History Social History marital status: Smoking Status: Current some day smoker Tobacco: How many years used: 56 alcohol intake: never Smoking Status: Current some day smoker tobacco type: cigarettes and vaping alcohol intake frequency: other Exam Initial Vital Signs Initial Vital Signs: Vital Signs Temperature 97.9 F 06/13/24 13:18 Pulse Rate 87 06/13/24 13:18 Respiratory Rate 17 06/13/24 13:18 Blood Pressure 148/67 H 06/13/24 13:18 Pulse Oximetry 98 06/13/24 13:18 Oxygen Delivery Method Room Air 06/13/24 13:18 GENERAL: Alert pleasant well-appearing 74-year-old CARDIOVASCULAR: peripheral pulses in tact, cap refill <2 sec RESPIRATORY: No respiratory distress, speaks in full sentences without difficulty ABDOMEN: Positive fluid wave minimally tender EXTREMITIES: Normal range of motion, no clubbing or edema. Neurovascularly intact NEUROLOGICAL: Cranial nerves II through XII grossly intact. Normal gait and speech. SKIN: Warm, dry, no petechiae, no rashes or lesions. Procedures Laceration Repair Laceration 1: Site: other (abdomen) Size (cm): 0.2 Description: other (pin point) Skin layer closed with: nylon Skin layer suture size: 4-0 Number of sutures: 2 Paracentesis Indication: Ascites Procedure: therapeutic paracentesis Local Anesthetic: lidocaine 1% Amount of anesthesia used (mL): 5 Preparation: sterile prep and drape Fluid: clear Post Procedure Exam: awake, alert, normal BP, normal HR and normal SpO2 Patient Tolerated Procedure: Well and No complications Complications: none Course Orders Ordered: Discontinued Medications Albumin Human (Albuminar) 50 gm in 200 mls @ 60 mls/hr IV NOW ONE Stop: 06/13/24 19:11 Last Admin: 06/13/24 16:36 Dose: Not Given Documented By: JUSTICE Albumin Human (Albuminar) 25 gm in 100 mls @ 60 mls/hr IV NOW ONE Stop: 06/13/24 17:53 Last Infusion: 06/13/24 17:40 Dose: Infused Documented By: Admin: 06/13/24 16:00 Dose: 60 mls/hr Documented By: JUSTICE Vital Signs Vital signs: Vital Signs - 8 hr 06/13/24 13:18 Temperature 97.9 F Pulse Rate 87 Respiratory Rate 17 Blood Pressure 148/67 H Pulse Oximetry 98 Oxygen Delivery Method Room Air MDM - Recheck/Abnormal Lab/Rx Lab Data 06/13/24 14:05 06/13/24 14:05 Labs: Lab Results 06/13/24 Range/Units 14:05 WBC 8.5 (4.5-11.0) X10^3/uL RBC 4.37 (4.0-5.2) X10^6/uL Hgb 12.4 (12.0-16.0) g/dL Hct 37.8 (36-46) % MCV 86.4 (80-100) fL MCH 28.2 (26-34) PG MCHC 32.7 (30-36) % RDW 21.9 H (11.6-14.8) % Plt Count 156 (150-400) X10^3/uL Neut % (Auto) 75.4 H (50-75) % Lymph % (Auto) 10.0 L (25-40) % [place] % (Auto) 9.7 (3-14) % Eos % (Auto) 3.7 (2-4) % Baso % (Auto) 1.2 (0-2) % Neut # (Auto) 6400 (3767-4968) /uL Lymph # (Auto) 800 L (7022-5318) /uL [place] # (Auto) 800 (0-900) /uL Eos # (Auto) 300 (0-450) /uL Baso # (Auto) 100 (0-100) /uL RBC Morphology Not Reportable Anisocytosis 2+ H PT 12.4 (9.4-12.5) SECONDS INR 1.1 (0.9-1.3) APTT 30 (25.1-36.5) SECONDS Sodium 138 (137-145) mmol/L Potassium 4.2 (3.4-5.1) mmol/L Chloride 102 (98-107) mmol/L Carbon Dioxide 28 (22-32) mmol/L BUN 24 H (7-17) mg/dL Creatinine 1.66 H (0.52-1.04) mg/dL Estimated GFR 33 L (>60) mL/min BUN/Creatinine Ratio 14.5 (6-22) Glucose 226 H (80-110) mg/dL Calcium 8.2 L (8.4-10.2) mg/dL Total Bilirubin 0.7 (0.2-1.3) mg/dL AST 41 H (14-36) IU/L ALT 22 (<35) IU/L Alkaline Phosphatase 152 H (38-126) U/L Total Protein 6.7 (6.3-8.2) g/dL Albumin 3.3 L (3.5-5.0) g/dL Globulin 3.4 (1.7-4.1) g/dL Albumin/Globulin Ratio 1.0 (1.0-2.8) Imaging Data US - abdomen: Radiologist's Impression: PROCEDURE: US ABDOMEN LIMITED INDICATIONS: ascites yudelka please and thank you TECHNIQUE: Real-time focused scanning was performed of the abdomen, with image documentation. COMPARISON: [facility], , US ABDOMEN LIMITED, 05/29/2024, 13:13. FINDINGS: Moderate ascites fluid is seen in all 4 quadrants of abdomen. Left lower quadrant abdominal wall was marked under ultrasound guidance for paracentesis to be performed by ordering physician. IMPRESSION: Moderate ascites fluid in abdomen. Left lower quadrant anterior abdominal wall was marked for potential paracentesis to be performed by ordering physician. Dictated by: Reynaldo Yan M.D. on 06/13/2024 at 14:53 Approved by: Reynaldo Yan M.D. on 06/13/2024 at 14:54 [facility] Narrative Medical decision making narrative: Patient 74-year-old female who has nonalcoholic cirrhosis with recurrent ascites presenting today with abdominal distention. She does seem to be coming in about every 2-1/2 weeks for paracentesis. I have called her GI doctor Lorie, I did not speak with him but left a message with his MA about frequent ED visits for paracentesis Blood work today is overall reassuring, creatinine is 1.6 it was previously 1.5 INR 1.1 PTT 30 Ultrasound did find a large pocket in the left lower quadrant which is where she typically gets draining Drained 7 L, blood pressure remained stable nonetheless given 25 g of albumin. Draining quite a bit of ascites 2 sutures placed to help stop bed drainage it has worked previously. Discharge Plan Departure Patient Disposition: Home Clinical Impression: Ascites Activity Restrictions/Additional Instructions: Nice to see you again happy new year Hope this 1 lasts until you see a GI Return to the ED as needed Have your sutures removed in about 5 days Prescriptions: No Action levothyroxine [Synthroid] 25 mcg tablet 200 mcg PO QAM Qty: 0 doxepin 10 mg capsule 10 mg PO ONCE PM spironolactone 25 mg Tablet 25 mg PO DAILY albuterol sulfate [ProAir HFA] 90 mcg/actuation HFA aerosol inhaler 2 puff INHALATION DAILY Patient Comments: [NO ORIGINAL SIG] Janumet XR 50-1,000 mg tablet, ER multiphase 24 hr 50 - 1,000 tab PO DAILY Spiriva Respimat 1.25 mcg/actuation mist 2 puff inhalation DAILY lactulose 10 gram/15 mL solution PO Veltassa 8.4 gram powder in packet 8.4 g PO DAILY furosemide [Lasix] 40 mg tablet 40 mg PO BID Qty: 10 0RF (DME) blood-glucose meter [CareTouch Glucose Monitoring] Kit See Rx Instructions .Route Qty: 1 0RF Rx Instructions: As directed (DME) CareTouch Test Strip Strip See Rx Instructions .Route Qty: 50 0RF Rx Instructions: As directed furosemide [Lasix] 20 mg tablet 20 mg PO DAILY Qty: 30 0RF pregabalin 50 mg capsule 50 mg PO DAILY Referrals: Rogers Iglesias DO [Primary Care Provider] - Stand Alone Forms: Patient Portal/API/Survey
[2024-06-13 14:37] LABS: Add Manual Diff / Slide Review NO; Basophils Absolute Auto 100 /uL (0-100); Basophils Percent Auto 1.2 % (0-2); Eosinophils Absolute Auto 300 /uL (0-450); Eosinophils Percent Auto 3.7 % (2-4); Hematocrit 37.8 % (36-46); Hemoglobin 12.4 g/dL (12.0-16.0); Lymphocytes Absolute Auto 800 /uL (1100-4500); Mean Corpuscular HGB Conc 32.7 % (30-36); Mean Corpuscular Hemoglobin 28.2 PG (26-34); Mean Corpuscular Volume 86.4 fL (80-100); Monocytes Absolute Auto 800 /uL (0-900); Monocytes Percent Auto 9.7 % (3-14); Neutrophils Absolute Auto 6400 /uL (1500-7000); Neutrophils Percent Auto 75.4 % (50-75); Platelet Count 156 X10^3/uL (150-400); Red Blood Cell Count 4.37 X10^6/uL (4.0-5.2); Red Cell Distribution Width 21.9 % (11.6-14.8); White Blood Cell Count 8.5 X10^3/uL (4.5-11.0)
[2024-06-13 14:43] LABS: INR 1.1 (0.9-1.3); Prothrombin Time 12.4 SECONDS (9.4-12.5)
[2024-06-13 14:46] LABS: Anisocytosis 2+; PTT Partial Thromboplastin Tim 30 SECONDS (25.1-36.5)
[2024-06-13 14:48] LABS: Alanine Aminotransferase 22 IU/L (<35); Albumin 3.3 g/dL (3.5-5.0); Alkaline Phosphatase 152 U/L (38-126); Aspartate Aminotransferase 41 IU/L (14-36); BUN Creatinine Ratio 14.5 (6-22); Bilirubin Total 0.7 mg/dL (0.2-1.3); Blood Urea Nitrogen 24 mg/dL (7-17); Calcium 8.2 mg/dL (8.4-10.2); Carbon Dioxide 28 mmol/L (22-32); Chloride 102 mmol/L (98-107); Estimated Glomerular Filt Rate 33 mL/min (>60); Globulin 3.4 g/dL (1.7-4.1); Glucose 226 mg/dL (80-110); HEMOLYSIS 76 (0-50); Potassium 4.2 mmol/L (3.4-5.1); Sodium 138 mmol/L (137-145); Total Protein 6.7 g/dL (6.3-8.2)
[2024-06-13] MEDS: ALBUMIN HUMAN 25 GM/100 ML VIAL IV (16:00)
--- NOTE | 2024-06-13 16:17 | PC.NURSE ---
[address] Boggs. 1600 7th bottle of fluid removed per Dr. Boggs's ordder. Procedure stopped at this time, 6,300ml output of peritoneal fluid. Dr. Boggs removed paracentesis catheter, placed a stitch in the insertion hole to minimize leakage of fluid. I then placed a bandage over the stitch per 's order. Patient resting comfortably in bed. Albumin ordered, 25GM. Blood Pressure remains stable.
--- NOTE | 2024-06-13 18:29 | PC.NURSE ---
patient soaked through bed linens with leakage from the peritoneal site. Dr. Boggs applied a second stitch and a new dressing to the site.
== END 2024-06-13 18:29 | disposition home or self-care (01) ==
PROVIDERS: Emergency Provider Emergency Medicine; PCP Family Medicine
DX: R18.8 Other ascites (principal); K74.69 Other cirrhosis of liver
CPT/HCPCS: 36415; 49082; 76705; 80053; 85025; 85610; 85730; 96365; 96366; 99284; P9041

== ENCOUNTER 2024-06-26 13:44 | Emergency (ER) | payer MEDICARE, OTHER, SELFPAY ==
[2024-06-26] VITALS (28 sets, daily range): BP systolic 110–135; BP diastolic 53–89; PULSE 85–95; RESP 13–27; TEMP 36.2; O2SAT 92–99; BMI 45.7
--- NOTE | 2024-06-26 16:12 | DI.US.S_ITS ---
PROCEDURE: US ABDOMEN LIMITED INDICATIONS: ascites TECHNIQUE: Real-time focused scanning was performed of the abdomen, with image documentation. COMPARISON: [facility], , US ABDOMEN LIMITED, 06/13/2024, 14:09. FINDINGS: Moderate amount of ascites in the right lower quadrant and midline lower abdomen. An appropriate pocket was marked on the skin for paracentesis. IMPRESSION: Moderate ascites, marked for paracentesis. Dictated by: Sis Kuhn M.D. on 06/26/2024 at 17:35 Approved by: Sis Kuhn M.D. on 06/26/2024 at 17:36
[2024-06-26] MEDS: ALBUMIN HUMAN 25 GM/100 ML VIAL IV (17:02)
[2024-06-26 17:05] LABS: Add Manual Diff / Slide Review NO; Basophils Absolute Auto 100 /uL (0-100); Basophils Percent Auto 1.3 % (0-2); Eosinophils Absolute Auto 300 /uL (0-450); Eosinophils Percent Auto 3.3 % (2-4); Lymphocytes Absolute Auto 1200 /uL (1100-4500); Lymphocytes Percent Auto 13.1 % (25-40); Mean Corpuscular HGB Conc 33.2 % (30-36); Mean Corpuscular Hemoglobin 28.9 PG (26-34); Mean Corpuscular Volume 86.9 fL (80-100); Monocytes Absolute Auto 600 /uL (0-900); Monocytes Percent Auto 6.3 % (3-14); Neutrophils Absolute Auto 6900 /uL (1500-7000); Platelet Count 157 X10^3/uL (150-400); Red Blood Cell Count 4.49 X10^6/uL (4.0-5.2); Red Cell Distribution Width 21.1 % (11.6-14.8)
[2024-06-26 17:09] LABS: INR 1.1 (0.9-1.3); Prothrombin Time 12.7 SECONDS (9.4-12.5)
[2024-06-26 17:11] LABS: PTT Partial Thromboplastin Tim 34 SECONDS (25.1-36.5)
[2024-06-26 17:12] LABS: Alanine Aminotransferase 22 IU/L (<35); Albumin 3.4 g/dL (3.5-5.0); Alkaline Phosphatase 156 U/L (38-126); Aspartate Aminotransferase 35 IU/L (14-36); Bilirubin Total 0.6 mg/dL (0.2-1.3); Blood Urea Nitrogen 25 mg/dL (7-17); Calcium 8.2 mg/dL (8.4-10.2); Carbon Dioxide 31 mmol/L (22-32); Chloride 102 mmol/L (98-107); Estimated Glomerular Filt Rate 27 mL/min (>60); Globulin 3.3 g/dL (1.7-4.1); Glucose 169 mg/dL (80-110); HEMOLYSIS < 15 (0-50); Potassium 3.6 mmol/L (3.4-5.1); Sodium 135 mmol/L (137-145); Total Protein 6.7 g/dL (6.3-8.2)
--- NOTE | 2024-06-26 18:08 | ED.GENADULT ---
HPI - General Adult General Chief complaint: Abdominal Pain Stated complaint: needs another tap Time Seen by Provider: 06/26/24 16:30 Source: patient Mode of arrival: Ambulatory History of Present Illness HPI narrative: Patient was a 74-year-old female. Has a history of ascites. Has had multiple paracentesis in the past. She was here requesting another paracentesis. She does have a follow-up with gastroenterology in 3 weeks. She denies fevers. No chest pain. Feels like her abdomen is distended which is causing some discomfort. Related Data Home Medications Medication Instructions Recorded Confirmed levothyroxine 25 mcg tablet 200 mcg PO QAM ##0 07/24/16 12/27/23 (Synthroid) pregabalin 50 mg capsule 50 mg PO DAILY 01/19/23 12/27/23 albuterol sulfate 90 mcg/actuation 2 puff inhalation DAILY 07/07/23 12/27/23 aerosol inhaler (ProAir HFA) doxepin 10 mg capsule 10 mg PO ONCE PM 07/07/23 12/27/23 sitagliptin phos 50 mg-metformin 50 - 1,000 tab PO DAILY 07/07/23 12/27/23 ER 1,000 mg tablet,extend rel 24h mp (Janumet XR) spironolactone 25 mg tablet 25 mg PO DAILY 07/07/23 07/07/23 tiotropium bromide 1.25 2 puff inhalation DAILY 07/07/23 12/27/23 mcg/actuation mist for inhalation (Spiriva Respimat) lactulose 10 gram/15 mL oral PO 12/27/23 solution patiromer calcium sorbitex 8.4 8.4 g PO DAILY 12/27/23 12/27/23 gram oral powder packet (Veltassa) Previous Rx's Medication Instructions Recorded furosemide 40 mg tablet (Lasix) 40 mg PO BID #10 tabs 08/14/23 blood sugar diagnostic (CareTouch #50 ea 12/02/23 Test Strip) blood-glucose meter (CareTouch #1 ea 12/02/23 Glucose Monitoring System kit) furosemide 20 mg tablet (Lasix) 20 mg PO DAILY #30 tabs 02/22/24 Allergies Allergy/AdvReac Type Severity Reaction Status Date / Time No Known Drug Allergies Allergy Verified 06/13/24 13:21 Review of Systems Review of Systems ROS Unobtainable: All systems reviewed & are unremarkable except as noted in HPI and below Patient History Social History marital status: Smoking Status: Current some day smoker Tobacco: How many years used: 56 alcohol intake: never Smoking Status: Current some day smoker tobacco type: cigarettes and vaping alcohol intake frequency: other Exam Initial Vital Signs Initial Vital Signs: Vital Signs Temperature 97.2 F L 06/26/24 13:49 Pulse Rate 95 H 06/26/24 13:49 Respiratory Rate 20 06/26/24 13:49 Blood Pressure 127/58 L 06/26/24 13:49 Pulse Oximetry 98 06/26/24 13:49 Oxygen Delivery Method Room Air 06/26/24 13:49 Const General: cooperative and No ill appearing HENMT Head: normal to inspection and atraumatic GI Inspection: distended Palpation: firm, No tender and ascites Skin General: no rashes or lesions noted Neuro General: patient alert, patient awake, patient oriented x3 and moves all extremities Procedures Paracentesis Indication: Ascites Procedure: therapeutic paracentesis Local Anesthetic: lidocaine 1% Amount of anesthesia used (mL): 3 Preparation: sterile prep and drape and Blade used to make siva in skin Fluid: clear Post Procedure Exam: awake, alert, normal BP, normal HR and normal SpO2 Patient Tolerated Procedure: Well Complications: none Course Orders Ordered: ED Orders 06/26/24 16:12 US abdomen limited Stat 06/26/24 16:50 Complete Blood Count AUTO DIFF Stat Comprehensive Metabolic Panel Stat PTT Partial Thromboplastin [place] Stat Prothrombin Time INR Stat Discontinued Medications Albumin Human (Albuminar) 25 gm in 100 mls @ 60 mls/hr IV NOW ONE Stop: 06/26/24 18:09 Last Infusion: 06/26/24 18:43 Dose: Infused Documented By: Admin: 06/26/24 17:02 Dose: 60 mls/hr Documented By: PATTIE Vital Signs Vital signs: Vital Signs - 8 hr 06/26/24 16:18 06/26/24 16:18 06/26/24 16:30 Pulse Rate 94 H 93 H Respiratory Rate Blood Pressure 135/89 Pulse Oximetry 97 96 Oxygen Delivery Method Oxygen Flow Rate 06/26/24 16:31 06/26/24 16:31 06/26/24 17:00 Pulse Rate 91 H 91 H Respiratory Rate Blood Pressure 117/71 Pulse Oximetry 98 98 Oxygen Delivery Method Room Air Oxygen Flow Rate 06/26/24 17:09 06/26/24 17:09 06/26/24 17:30 Pulse Rate 92 H 95 H Respiratory Rate 22 Blood Pressure 110/62 Pulse Oximetry 99 Oxygen Delivery Method Room Air Oxygen Flow Rate 06/26/24 17:30 06/26/24 18:00 06/26/24 18:01 Pulse Rate 93 H Respiratory Rate 21 Blood Pressure 121/58 L 126/58 L Pulse Oximetry 98 Oxygen Delivery Method Oxygen Flow Rate 06/26/24 18:01 06/26/24 18:15 06/26/24 18:30 Pulse Rate 92 H 90 89 Respiratory Rate 24 24 27 H Blood Pressure Pulse Oximetry 97 96 96 Oxygen Delivery Method Nasal Cannula Oxygen Flow Rate 2 06/26/24 18:31 06/26/24 18:31 06/26/24 18:45 Pulse Rate 87 89 Respiratory Rate 23 13 Blood Pressure 134/72 135/61 Pulse Oximetry 97 94 Oxygen Delivery Method Room Air Oxygen Flow Rate 06/26/24 18:45 06/26/24 18:50 06/26/24 18:50 Pulse Rate 89 Respiratory Rate 22 Blood Pressure 135/61 132/63 Pulse Oximetry 94 Oxygen Delivery Method Room Air Oxygen Flow Rate 06/26/24 18:54 06/26/24 18:54 06/26/24 18:55 Pulse Rate 91 H 90 Respiratory Rate 20 22 Blood Pressure 131/62 Pulse Oximetry 92 92 Oxygen Delivery Method Room Air Oxygen Flow Rate 06/26/24 18:55 06/26/24 19:00 06/26/24 19:00 Pulse Rate 90 Respiratory Rate 21 Blood Pressure 132/63 128/60 Pulse Oximetry 93 Oxygen Delivery Method Oxygen Flow Rate 06/26/24 19:05 06/26/24 19:05 06/26/24 19:10 Pulse Rate 89 Respiratory Rate 22 Blood Pressure 117/57 L 124/58 L Pulse Oximetry 94 Oxygen Delivery Method Room Air Oxygen Flow Rate 06/26/24 19:10 06/26/24 19:15 06/26/24 19:15 Pulse Rate 87 89 Respiratory Rate 21 23 Blood Pressure 135/61 Pulse Oximetry 97 92 Oxygen Delivery Method Oxygen Flow Rate 06/26/24 19:20 06/26/24 19:20 06/26/24 19:25 Pulse Rate 85 86 Respiratory Rate 17 19 Blood Pressure 123/60 Pulse Oximetry 96 96 Oxygen Delivery Method Room Air Oxygen Flow Rate 06/26/24 19:25 06/26/24 19:30 06/26/24 19:30 Pulse Rate 86 Respiratory Rate 19 Blood Pressure 121/56 L 126/58 L Pulse Oximetry 95 Oxygen Delivery Method Oxygen Flow Rate 06/26/24 19:35 06/26/24 19:35 06/26/24 19:41 Pulse Rate 86 Respiratory Rate 20 Blood Pressure 122/57 L 122/56 L Pulse Oximetry 93 Oxygen Delivery Method Room Air Oxygen Flow Rate 06/26/24 19:41 06/26/24 19:45 06/26/24 19:46 Pulse Rate 87 86 86 Respiratory Rate 21 22 22 Blood Pressure Pulse Oximetry Oxygen Delivery Method Oxygen Flow Rate 06/26/24 19:46 06/26/24 19:50 06/26/24 19:50 Pulse Rate 87 Respiratory Rate 22 Blood Pressure 115/59 L 110/53 L Pulse Oximetry 94 Oxygen Delivery Method Room Air Oxygen Flow Rate Medical Decision Making Lab Data Lab results reviewed: Yes I reviewed the patient's lab results. 06/26/24 16:50 06/26/24 16:50 Labs: Lab Results 06/26/24 Range/Units 16:50 WBC 9.0 (4.5-11.0) X10^3/uL RBC 4.49 (4.0-5.2) X10^6/uL Hgb 13.0 (12.0-16.0) g/dL Hct 39.0 (36-46) % MCV 86.9 (80-100) fL MCH 28.9 (26-34) PG MCHC 33.2 (30-36) % RDW 21.1 H (11.6-14.8) % Plt Count 157 (150-400) X10^3/uL Neut % (Auto) 76.0 H (50-75) % Lymph % (Auto) 13.1 L (25-40) % [place] % (Auto) 6.3 (3-14) % Eos % (Auto) 3.3 (2-4) % Baso % (Auto) 1.3 (0-2) % Neut # (Auto) 6900 (2107-4854) /uL Lymph # (Auto) 1200 (1836-6538) /uL [place] # (Auto) 600 (0-900) /uL Eos # (Auto) 300 (0-450) /uL Baso # (Auto) 100 (0-100) /uL Nucleated RBCs Cancelled Hypersegmented Neuts Cancelled Hypogranular Neuts Cancelled Reactive Lymphocytes Cancelled Smudge Cells Cancelled Other Cell Type Cancelled Toxic Granulation Cancelled Toxic Vacuolation Cancelled Dohle Bodies Cancelled Jarrod Rods Cancelled WBC Morphology Comment Cancelled Platelet Estimate Cancelled Clumped Platelets Cancelled Plt Morphology Comment Cancelled RBC Morphology Cancelled Dimorphic RBCs Cancelled Polychromasia Cancelled Hypochromasia Cancelled Poikilocytosis Cancelled Basophilic Stippling Cancelled Anisocytosis Cancelled Microcytosis Cancelled Macrocytosis Cancelled Spherocytes Cancelled Pappenheimer Bodies Cancelled Sickle Cells Cancelled Target Cells Cancelled Tear Drop Cells Cancelled Ovalocytes Cancelled Stomatocytes Cancelled Helmet Cells Cancelled [place] Bodies Cancelled [place] Rings Cancelled [place] Cells Cancelled Acanthocytes (Spur) Cancelled Rouleaux Cancelled Schistocytes Cancelled PT 12.7 H (9.4-12.5) SECONDS INR 1.1 (0.9-1.3) APTT 34 (25.1-36.5) SECONDS Sodium 135 L (137-145) mmol/L Potassium 3.6 (3.4-5.1) mmol/L Chloride 102 (98-107) mmol/L Carbon Dioxide 31 (22-32) mmol/L BUN 25 H (7-17) mg/dL Creatinine 1.93 H (0.52-1.04) mg/dL Estimated GFR 27 L (>60) mL/min BUN/Creatinine Ratio 13.0 (6-22) Glucose 169 H (80-110) mg/dL Calcium 8.2 L (8.4-10.2) mg/dL Total Bilirubin 0.6 (0.2-1.3) mg/dL AST 35 (14-36) IU/L ALT 22 (<35) IU/L Alkaline Phosphatase 156 H (38-126) U/L Total Protein 6.7 (6.3-8.2) g/dL Albumin 3.4 L (3.5-5.0) g/dL Globulin 3.3 (1.7-4.1) g/dL Albumin/Globulin Ratio 1.0 (1.0-2.8) MDM Narrative Medical decision making narrative: Remove just over 7 L of fluid. Normal blood pressure and normal heart rate normal mentation afterwards. The wound was sutured closed because she was had issues with leaking afterwards. Recommended that she contact her primary doctor and also her GI doctor for follow-up. She expressed understanding and agreement. Discharge Plan Departure Patient Disposition: Home Clinical Impression: Ascites Instructions: Ascites, DI for Abdominal Paracentesis Activity Restrictions/Additional Instructions: I do recommend that you continue to take all of your medications as directed. Contact your primary care doctor for a follow-up. Return to the emergency department for new symptoms. Prescriptions: No Action levothyroxine [Synthroid] 25 mcg tablet 200 mcg PO QAM Qty: 0 doxepin 10 mg capsule 10 mg PO ONCE PM spironolactone 25 mg Tablet 25 mg PO DAILY albuterol sulfate [ProAir HFA] 90 mcg/actuation HFA aerosol inhaler 2 puff INHALATION DAILY Patient Comments: [NO ORIGINAL SIG] Janumet XR 50-1,000 mg tablet, ER multiphase 24 hr 50 - 1,000 tab PO DAILY Spiriva Respimat 1.25 mcg/actuation mist 2 puff inhalation DAILY lactulose 10 gram/15 mL solution PO Veltassa 8.4 gram powder in packet 8.4 g PO DAILY furosemide [Lasix] 40 mg tablet 40 mg PO BID Qty: 10 0RF (DME) blood-glucose meter [CareTouch Glucose Monitoring] Kit See Rx Instructions .Route Qty: 1 0RF Rx Instructions: As directed (DME) CareTouch Test Strip Strip See Rx Instructions .Route Qty: 50 0RF Rx Instructions: As directed furosemide [Lasix] 20 mg tablet 20 mg PO DAILY Qty: 30 0RF pregabalin 50 mg capsule 50 mg PO DAILY Referrals: Rogers Iglesias DO [Primary Care Provider] - Stand Alone Forms: Patient Portal/API/Survey
--- NOTE | 2024-06-26 18:13 | PC.NURSE ---
Setup for paracentesis with ultrasound at bedside. Dr. Guevara performed abdominal ultrasound to verify ascites location for drainage. Dr. Guevara inserted catheter in LLQ abdomen. Pt tolerating procedure well.
--- NOTE | 2024-06-26 18:58 | PC.NURSE ---
Notified Dr. guevara of 5L of fluid had been removed from pt's abdomen. BP and vital signs remain stable. Pt denies pain. There continues to be adequate flow of drainage. Dr. Guevara okayed to continue to remove 2x more liters. Pt agrees to this.
--- NOTE | 2024-06-26 19:29 | PC.NURSE ---
Total output from paracentesis of 7,500cc intraperitoneal fluid. Dr. Guevara notified. Suction stopped and paracentesis line clamped.
== END 2024-06-26 20:05 | disposition home or self-care (01) ==
PROVIDERS: Emergency Medicine; Emergency Provider Emergency Medicine; PCP Family Medicine
DX: R18.8 Other ascites (principal)
CPT/HCPCS: 36415; 49082; 76705; 80053; 85025; 85610; 85730; 96365; 96366; 99285; P9041

== ENCOUNTER 2024-06-28 20:55 | Observation (INO) | payer MEDICARE, OTHER, SELFPAY ==
[2024-06-28 20:56] VITALS: BP 146/65; PULSE 103; RESP 20; TEMP 36.7; O2SAT 96; BMI 48.7
--- NOTE | 2024-06-28 21:36 | EKG_ITS ---
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
[2024-06-28 21:54] LABS: Add Manual Diff / Slide Review NO; Basophils Absolute Auto 100 /uL (0-100); Basophils Percent Auto 0.7 % (0-2); Eosinophils Absolute Auto 0 /uL (0-450); Eosinophils Percent Auto 0.4 % (2-4); Hematocrit 39.8 % (36-46); Hemoglobin 12.9 g/dL (12.0-16.0); Lymphocytes Absolute Auto 400 /uL (1100-4500); Lymphocytes Percent Auto 5.5 % (25-40); Mean Corpuscular HGB Conc 32.4 % (30-36); Mean Corpuscular Hemoglobin 28.3 PG (26-34); Mean Corpuscular Volume 87.4 fL (80-100); Monocytes Absolute Auto 700 /uL (0-900); Monocytes Percent Auto 8.3 % (3-14); Neutrophils Absolute Auto 6700 /uL (1500-7000); Neutrophils Percent Auto 85.1 % (50-75); Platelet Count 123 X10^3/uL (150-400); Red Blood Cell Count 4.55 X10^6/uL (4.0-5.2); Red Cell Distribution Width 20.4 % (11.6-14.8); White Blood Cell Count 7.8 X10^3/uL (4.5-11.0)
[2024-06-28 22:06] LABS: Alanine Aminotransferase 23 IU/L (<35); Albumin 3.2 g/dL (3.5-5.0); Alkaline Phosphatase 150 U/L (38-126); Aspartate Aminotransferase 39 IU/L (14-36); BUN Creatinine Ratio 13.8 (6-22); Bilirubin Total 0.5 mg/dL (0.2-1.3); Blood Urea Nitrogen 25 mg/dL (7-17); Calcium 8.1 mg/dL (8.4-10.2); Carbon Dioxide 28 mmol/L (22-32); Chloride 102 mmol/L (98-107); Estimated Glomerular Filt Rate 29 mL/min (>60); Globulin 3.2 g/dL (1.7-4.1); Glucose 231 mg/dL (80-110); HEMOLYSIS 42 (0-50); Lipase 120 U/L (23-300); Potassium 4.3 mmol/L (3.4-5.1); Sodium 135 mmol/L (137-145); Total Protein 6.4 g/dL (6.3-8.2)
[2024-06-28 22:07] LABS: Anisocytosis 2+
[2024-06-28 22:11] LABS: Urine Volume 10mL (spun)
[2024-06-28 22:12] LABS: Bacteria Urine Moderate (10-30); Culture Indicated Urine Specimen Cultured; RBC Urine 5-10/HPF (0-5/HPF); Squamous Epithelial Cell Urine 1-5 /HPF (0-5/HPF); WBC Urine 10-30/HPF (0-5/HPF)
[2024-06-28 23:05] VITALS: BP 162/70; PULSE 95; RESP 14; O2SAT 94
[2024-06-29] VITALS (9 sets, daily range): BP systolic 93–128; BP diastolic 40–68; PULSE 78–94; RESP 16–20; TEMP 36.2–36.6; O2SAT 93–98; BMI 45.9
--- NOTE | 2024-06-29 02:57 | ED.WEAKNESS ---
HPI - Weakness General Chief complaint: Weakness Stated complaint: weakness, reynolds Time Seen by Provider: 06/29/24 02:53 Source: patient and EMS Mode of arrival: EMS Limitations: no limitations History of Present Illness HPI Narrative: 74-year-old female history of nonalcoholic cirrhosis with the ascites with frequent paracentesis most recently on 06/26/2024. Patient presents with complaint of generalized weakness difficulty ambulating states no fevers or chills. No cold cough or congestion. She states slow mildly short of breath but actually improved from when she was here the other day no chest pain or pressure. She has not had any nausea or vomiting. Patient states she occasionally gets abdominal discomfort but states that has been going on for months has not noted any new or increased pain. Has not had any redness or swelling or changes of the skin where her paracentesis was. States she was without pain currently. Patient states does not feel like she was reaccumulate of the fluid that she had drained. She states no new dysuria urgency or frequency no issues with bowel movements. No new swelling in her extremities. She states no recent changes in medications. Denies any allergies to medications. States today was not able to ambulate safely at home describes generalized weakness. No lateralizing symptoms. No difficulty with speech no falls or trauma. Related Data Home Medications Medication Instructions Recorded Confirmed levothyroxine 25 mcg tablet 200 mcg PO [facility] ##0 07/24/16 06/29/24 (Synthroid) pregabalin 50 mg capsule 50 mg PO DAILY 01/19/23 06/29/24 albuterol sulfate 90 mcg/actuation 2 puff inhalation DAILY PRN 07/07/23 06/29/24 aerosol inhaler (ProAir HFA) Wheezing doxepin 10 mg capsule 10 mg PO ONCE PM 07/07/23 06/29/24 sitagliptin phos 50 mg-metformin 50 - 1,000 tab PO DAILY 07/07/23 06/29/24 ER 1,000 mg tablet,extend rel 24h mp (Janumet XR) tiotropium bromide 1.25 2 puff inhalation DAILY 07/07/23 06/29/24 mcg/actuation mist for inhalation (Spiriva Respimat) sitagliptin phos 50 mg-metformin 1 tab PO DAILY 06/29/24 06/29/24 ER 1,000 mg tablet,extend rel 24h mp (Janumet XR) Previous Rx's Medication Instructions Recorded furosemide 40 mg tablet (Lasix) 40 mg PO BID #10 tabs 08/14/23 blood sugar diagnostic (CareTouch #50 ea 12/02/23 Test Strip) blood-glucose meter (CareTouch #1 ea 12/02/23 Glucose Monitoring System kit) Allergies Allergy/AdvReac Type Severity Reaction Status Date / Time No Known Drug Allergies Allergy Verified 06/13/24 13:21 Review of Systems Review of Systems ROS Unobtainable: All systems reviewed & are unremarkable except as noted in HPI and below Patient History Social History marital status: household members: spouse Smoking Status: Current every day smoker Tobacco: How many years used: 56 alcohol intake: never Smoking Status: Current every day smoker tobacco type: cigarettes and vaping alcohol intake frequency: other Exam Narrative Exam Narrative: GEN: Obese female, alert and oriented x 3, patient appears to be in mild distress. HEENT: Atraumatic, pupils are equal round reactive to light, extraocular movements are intact, nares are clear, TMs are clear with no fluid, there is no conjunctival pallor. Throat is clear without any exudates, erythema, tonsillar enlargement or uvular deviation, no facial droop, patient is off O2 and awakened from sleeping during my evalution. HEART: Regular rate and rhythm without murmur, clicks, rubs. Patient has edema bilateral lower extremities. LUNGS:Lungs clear to auscultation, no wheezes, rales, crackles, chest moves symmetrically ABD:bowel sounds normal, abdomen is distended it is not tight, soft, non-tender, no guarding, rebound, rigidity, no masses noted, no hepatosplenomegaly, unable to visualize puncture wounds no erythema or skin changes appreciated from patient's recent paracentesis. :No CVA tenderness MSCL: Non-tender, no muscle atrophy, muscles strength 5/5 upper and lower extremities, full range of motion b/l lower extremities. NEURO:CN 2-12 intact, sensation normal SKIN: No rash, erythema or other skin changes appreciated Initial Vital Signs Initial Vital Signs: Vital Signs Temperature 98.1 F 06/28/24 20:56 Pulse Rate 103 H 06/28/24 20:56 Respiratory Rate 06/28/24 20:56 Blood Pressure 146/65 H 06/28/24 20:56 Pulse Oximetry 96 06/28/24 20:56 Oxygen Delivery Method Room Air 06/28/24 20:56 Course Orders Ordered: ED Orders 06/28/24 21:28 Urine Culture Stat Urine Microscopic Stat 06/28/24 21:45 Complete Blood Count AUTO DIFF Stat Comprehensive Metabolic Panel Stat Lipase Stat 06/29/24 03:12 Chest [XR chest 1V] Stat 06/29/24 03:42 Ammonia (NH3) Stat 06/29/24 04:26 Education, smoking cessation ONGOING 06/29/24 04:29 Consult to Discharge Planning Routine Lipid Panel Routine 06/29/24 07:00 Comprehensive Metabolic Panel DAILY Magnesium DAILY 06/30/24 07:00 Comprehensive Metabolic Panel DAILY Magnesium DAILY 07/01/24 07:00 Comprehensive Metabolic Panel DAILY Magnesium DAILY Albuterol (Albuterol 2.5 Mg/3 Ml Neb (Adult)) 2.5 mg INH [id number] PRN PRN Reason: Dyspnea Albuterol (Albuterol 2.5 Mg/3 Ml Neb (Adult)) 2.5 mg INH DAILY [facility] Benzonatate (Benzonatate 100 Mg Capsule) 100 mg PO TID PRN PRN Reason: Cough Furosemide (Furosemide 40 Mg Tablet) 40 mg PO BID ELIAN Hydralazine HCl (Hydralazine 20 Mg/Ml Vial) 10 mg IV Q6HR PRN PRN Reason: SBP>= 160 or DBP >=110 Ceftriaxone Sodium 1,000 mg/ (Sodium Chloride) 100 mls @ 200 mls/hr IV Q24H ELIAN Ipratropium [place] (Ipratropium 0.5 Mg/2.5 Ml Neb) 0.5 mg INH Q4HRWA ELIAN Ipratropium [place] (Ipratropium 0.5 Mg/2.5 Ml Neb) 0.5 mg INH Q2H PRN PRN Reason: SHORTNESS OF BREATH Lactulose (Lactulose 20 Gm/30 Ml Solution) 20 gm PO TID ELIAN Levothyroxine Sodium (Levothyroxine 25 Mcg Tablet) 200 mcg PO 0600 ELIAN Naloxone HCl (Naloxone 0.4 Mg/Ml Vial) 0.2 mg IV Q2MIN PRN PRN Reason: Opiate Reversal Non-Formulary Medication (Doxepin) 10 mg PO BEDTIME ELIAN Non-Formulary Medication (Patiromer Calcium Sorbitex [Veltassa]) 8.4 gram PO DAILY [facility] Ondansetron HCl (Ondansetron 4 Mg/2 Ml Inj) 4 mg IV NOW PRN PRN Reason: Nausea And Vomiting Ondansetron HCl (Ondansetron 4 Mg Odt) 4 mg PO NOW PRN PRN Reason: Nausea And Vomiting Pregabalin (Pregabalin 50 Mg Capsule) 50 mg PO DAILY ELIAN Spironolactone (Spironolactone 25 Mg Tablet) 25 mg PO DAILY ELIAN Discontinued Medications Albuterol (Albuterol Hfa Mdi 60 Puff/8 Gm Inhaler) 2 puff INH DAILY [facility] Ceftriaxone Sodium 1,000 mg/ (Sodium Chloride) 100 mls @ 200 mls/hr IV NOW ONE Stop: 06/29/24 03:13 Last Infusion: 06/29/24 04:20 Dose: Infused Documented By: Admin: 06/29/24 03:42 Dose: 200 mls/hr Documented By: BILLY Non-Formulary Medication (Tiotropium [place] [Spiriva Respimat]) 2 puff INHALATION DAILY [facility] Vital Signs Vital signs: Vital Signs - 8 hr 06/28/24 23:05 06/29/24 03:38 Pulse Rate 95 H 87 Respiratory Rate 14 20 Blood Pressure 162/70 H 127/59 L Pulse Oximetry 94 98 Oxygen Delivery Method Room Air Nasal Cannula Oxygen Flow Rate 2 MDM - Weakness Lab Data 06/28/24 21:45 06/28/24 21:45 Labs: Lab Results 06/28/24 06/28/24 06/29/24 Range/Units 21:28 21:45 03:42 WBC 7.8 (4.5-11.0) X10^3/uL RBC 4.55 (4.0-5.2) X10^6/uL Hgb 12.9 (12.0-16.0) g/dL Hct 39.8 (36-46) % MCV 87.4 (80-100) fL MCH 28.3 (26-34) PG MCHC 32.4 (30-36) % RDW 20.4 H (11.6-14.8) % Plt Count 123 L (150-400) X10^3/uL Neut % (Auto) 85.1 H (50-75) % Lymph % (Auto) 5.5 L (25-40) % [place] % (Auto) 8.3 (3-14) % Eos % (Auto) 0.4 L (2-4) % Baso % (Auto) 0.7 (0-2) % Neut # (Auto) 6700 (8030-3526) /uL Lymph # (Auto) 400 L (6495-2683) /uL [place] # (Auto) 700 (0-900) /uL Eos # (Auto) 0 (0-450) /uL Baso # (Auto) 100 (0-100) /uL RBC Morphology See below Anisocytosis 2+ H Sodium 135 L (137-145) mmol/L Potassium 4.3 (3.4-5.1) mmol/L Chloride 102 (98-107) mmol/L Carbon Dioxide 28 (22-32) mmol/L BUN 25 H (7-17) mg/dL Creatinine 1.81 H (0.52-1.04) mg/dL Estimated GFR 29 L (>60) mL/min BUN/Creatinine Ratio 13.8 (6-22) Glucose 231 H (80-110) mg/dL Calcium 8.1 L (8.4-10.2) mg/dL Total Bilirubin 0.5 (0.2-1.3) mg/dL AST 39 H (14-36) IU/L ALT 23 (<35) IU/L Alkaline Phosphatase 150 H (38-126) U/L Ammonia 38 H (9-30) umol/L Total Protein 6.4 (6.3-8.2) g/dL Albumin 3.2 L (3.5-5.0) g/dL Globulin 3.2 (1.7-4.1) g/dL Albumin/Globulin Ratio 1.0 (1.0-2.8) Lipase 120 (23-300) U/L Urine RBC 5-10/hpf H (0-5/HPF) Urine WBC 10-30/hpf H (0-5/HPF) Ur Squamous Epith Cells 1-5 /hpf (0-5/HPF) Urine Bacteria Moderate (10-30) H (None) Ur Culture Indicated? Specimen cultured Vol Urine Centrifuged 10ml (spun) Urine Dip Bedside Urine Glucose Negative Bedside Urine Bilirubin - Negative Bedside Urine Ketone - Negative Urine Specific [place] 1.015 Bedside Urine Occult Blood +++ Bedside Urine pH 5.0 Bedside Urine Protein - Negative Bedside Urine Urobilinogen - Negative Bedside Urine Nitrite - Negative Bedside Urine Leukocytes ++ 125 Esterase ECG Data Attestation: I personally reviewed and interpreted this ECG as follows: Prior ECG tracings: available for review Interpretation: Sinus tachycardia rate of 102 [place] 182 QRS of 130 QTC of 479. Right bundle-branch block. Patient has RBBB. MDM Narrative Medical decision making narrative: 74-year-old female with complaint of generalized weakness difficulty standing and walking shortness of breath back and abdominal pain had a paracentesis on 06/26/2024 with 7.5 L removed Labs show white count of 7.8, hemoglobin of 12.9 and platelets of 123. Chemistries show sodium 135 potassium 4.3 chloride of 102 CO2 of 28 BUN 25 with a creatinine of 1.8, glucose is 231 calcium is 8.1 with a bilirubin of 0.5 AST of 39 ALT 23 alk-phos of 150 total protein 6.4 lipase of 120. Ammonia is 38. Urine shows blood, leukocyte esterase but no nitrates. RBCs 5-10 RBCs white cells 10-30 squamous 1-5 bacteria moderate. EKG shows sinus rhythm rate of 74 [place] 188 QRS of 96 QTC of 457. Chest x-ray shows no acute change, no pleural effusion or edema. 74-year-old female has had recent paracentesis she does not feel like her fluid has reaccumulated Paracentesis on the does not feel like she needs a paracentesis complains of generalized weakness no lateralizing symptoms. Has not had any stroke-like changes no fevers or chills but does not appear to have potential UTI. No obvious erythema or skin changes. Patient was given Rocephin. Discussed with Dr. Gutierrez for observation for weakness, UTI and mildly elevated ammonia. Accepts for observation. Discharge Plan Departure Patient Disposition: Admitted as Observation Clinical Impression: Acute UTI, Weakness, Hyperammonemia Admit Date/Time: 06/29/24 04:26 Admit Provider: Braulio Gutierrez
--- NOTE | 2024-06-29 03:12 | DI.RAD.S_ITS ---
PROCEDURE: XR CHEST 1V INDICATIONS: weakness TECHNIQUE: One view of the chest was acquired. COMPARISON: [facility], CR, XR CHEST 1V, 08/14/2023, 14:47. FINDINGS: Surgical changes and devices: None. Lungs and pleura: Lungs are clear. No pleural effusions or pneumothorax. Mediastinum: Mediastinal contours appear normal. Heart size is normal. Bones and chest wall: No suspicious bony lesions. Overlying soft tissues appear unremarkable. IMPRESSION: No acute cardiopulmonary abnormality is seen. There is no significant discrepancy when compared to the overnight preliminary report. Approved by: Marco Chaudhry M.D. on 06/29/2024 at 7:55
[2024-06-29] MEDS: cefTRIAXone 1,000 MG in SODIUM CHLORIDE 0.9% 100 ML 200 MG IV (03:42)
[2024-06-29 04:08] LABS: Ammonia (NH3) 38 umol/L (9-30)
--- NOTE | 2024-06-29 06:23 | PM.HP.1 ---
History of Present Illness History of Present Illness Chief complaint: weakness, reynolds Narrative: 74 years old female with alcoholic cirrhosis currently on paracentesis every 2 weeks, diabetes mellitus type 2, COPD, current smoking, hypothyroidism presented to the ER with generalized weakness and difficulty ambulate. She had paracentesis on 06/26/2024 with 7-1/2 L fluids removed and 2 weeks prior had another paracentesis with 8 L removed. Denies any fever, chills but mild shortness of breath. Denies any nausea, vomiting, abdominal pain, diarrhea or dysuria. Laboratory shows WBC 7.8, hemoglobin 12.9, platelets 123, sodium 135, creatinine 1.8, blood sugar 231, lipase 120 and ammonia level 38. Urinalysis shows UTI. Chest x-ray was unremarkable. EKG unremarkable. She was given ceftriaxone 1 g IV and was decided to be admitted for further management. [facility] Social History marital status: household members: spouse Smoking Status: Current every day smoker Tobacco: How many years used: 56 alcohol intake: never Meds Home Medications and Allergies Home Medications Medication Instructions Recorded Confirmed Type levothyroxine 25 mcg tablet 150 mcg PO QAM ##0 07/24/16 06/29/24 History (Synthroid) pregabalin 50 mg capsule 50 mg PO DAILY 01/19/23 06/29/24 History albuterol sulfate 90 mcg/actuation 2 puff inhalation DAILY PRN 07/07/23 06/29/24 History aerosol inhaler (ProAir HFA) Wheezing doxepin 10 mg capsule 10 mg PO ONCE PM 07/07/23 06/29/24 History sitagliptin phos 50 mg-metformin 50 - 1,000 tab PO DAILY 07/07/23 06/29/24 History ER 1,000 mg tablet,extend rel 24h mp (Janumet XR) tiotropium bromide 1.25 2 puff inhalation DAILY 07/07/23 06/29/24 History mcg/actuation mist for inhalation (Spiriva Respimat) furosemide 40 mg tablet (Lasix) 40 mg PO BID #10 tabs 08/14/23 06/29/24 Rx blood sugar diagnostic (CareTouch #50 ea 12/02/23 06/29/24 Rx Test Strip) blood-glucose meter (CareTouch #1 ea 12/02/23 06/29/24 Rx Glucose Monitoring System kit) insulin glargine 100 unit/mL (3 50 unit SUBCUT ONCE HS 06/29/24 06/29/24 History mL) subcutaneous pen (Lantus Solostar U-100 Insulin) sitagliptin phos 50 mg-metformin 1 tab PO DAILY 06/29/24 06/29/24 History ER 1,000 mg tablet,extend rel 24h mp (Janumet XR) Allergies Allergy/AdvReac Type Severity Reaction Status Date / Time No Known Drug Allergies Allergy Verified 06/13/24 13:21 Review of Systems Review of Systems ROS: Yes All systems reviewed with the patient and are negative except as otherwise documented Constitutional Constitutional: Reports as per HPI and Reports system reviewed and no additional complaints, except as documented Eyes Eyes: Reports as per HPI and Reports system reviewed and no additional complaints, except as documented ENT Ears, Nose, Mouth, and Throat: Yes as per HPI and Yes system reviewed and no additional complaints, except as documented Cardiovascular Cardiovascular: Reports system reviewed and no additional complaints, except as documented Respiratory Respiratory: Reports system reviewed and no additional complaints, except as documented Gastrointestinal Gastrointestinal: Reports system reviewed and no additional complaints, except as documented Genitourinary Genitourinary: Reports system reviewed and no additional complaints, except as documented Musculoskeletal Musculoskeletal: Reports system reviewed and no additional complaints, except as documented, Reports abnormal gait and Reports numbness Neurologic Neurologic: Reports system reviewed and no additional complaints, except as documented, Reports abnormal gait, Reports confusion and Reports numbness Psychiatric Psychiatric: Reports system reviewed and no additional complaints, except as documented and Reports confusion Exam Vital Signs (past 8 hours): - 06/28/24 23:05 06/29/24 03:38 06/29/24 05:41 Temperature 97.5 F L Pulse Rate 95 H 87 85 Respiratory Rate 14 20 19 Blood Pressure 162/70 H 127/59 L 99/52 L Pulse Oximetry 94 98 93 Oxygen Delivery Method Room Air Nasal Cannula Oxygen Flow Rate 2 0 Oxygen Delivery Method Nasal Cannula Oxygen Flow Rate 0 Const General: cooperative, comfortable and well developed Orientation: alert and oriented x3 HENMT Head: normal to inspection, normocephalic and atraumatic Face and sinus: normal facial exam Mouth: oral mucosae normal and moist mucous membranes Throat: posterior oropharynx normal Eyes General: appearance normal, both eyes and all related structures Pupils: PERRL EOM: EOM intact bilaterally Neck Neck: normal visual inspection and full ROM Chest Chest: normal inspection of the chest Resp Effort & Inspection: normal respiratory effort and able to speak in complete sentences Auscultation: clear to auscultation bilaterally Cardio Palpation: normal PMI Rate: regular rate Rhythm: regular rhythm Heart Sounds: S1 normal and S2 normal GI Inspection: normal to inspection Palpation: soft and no hepatosplenomegaly Auscultation: normal bowel sounds Skin General: no rashes or lesions noted Lesions: no lesions Rashes: no rashes Trauma: no lacerations or abrasions Neuro General: patient alert, patient awake, patient oriented x3 and no focal motor deficits Cranial Nerves: CN's II-XI intact bilaterally Cognition: normal cognition Speech: speech normal Gait: normal gait Motor: muscle tone normal throughout Sensory Exam: no sensory deficits noted Extrem General: full ROM and no calf tenderness Psych Appearance: grossly normal Mental Status: mental status grossly normal Speech and Movement: speech and movement normal Objective Labs 06/28/24 21:45 06/28/24 21:45 Labs: Laboratory Results - last 24 hr 06/28/24 06/28/24 06/29/24 21:28 21:45 03:42 WBC 7.8 RBC 4.55 Hgb 12.9 Hct 39.8 MCV 87.4 MCH 28.3 MCHC 32.4 RDW 20.4 H Plt Count 123 L Neut % (Auto) 85.1 H Lymph % (Auto) 5.5 L [place] % (Auto) 8.3 Eos % (Auto) 0.4 L Baso % (Auto) 0.7 Neut # (Auto) 6700 Lymph # (Auto) 400 L [place] # (Auto) 700 Eos # (Auto) 0 Baso # (Auto) 100 RBC Morphology See below Anisocytosis 2+ H Sodium 135 L Potassium 4.3 Chloride 102 Carbon Dioxide 28 BUN 25 H Creatinine 1.81 H Estimated GFR 29 L BUN/Creatinine Ratio 13.8 Glucose 231 H Calcium 8.1 L Total Bilirubin 0.5 AST 39 H ALT 23 Alkaline Phosphatase 150 H Ammonia 38 H Total Protein 6.4 Albumin 3.2 L Globulin 3.2 Albumin/Globulin Ratio 1.0 Lipase 120 Urine RBC 5-10/hpf H Urine WBC 10-30/hpf H Ur Squamous Epith Cells 1-5 /hpf Urine Bacteria Moderate (10-30) H Ur Culture Indicated? Specimen cultured Vol Urine Centrifuged 10ml (spun) Assessment & Plan Assessment & Plan narrative: UTI -Blood culture, urine culture, -Antibiotics, ceftriaxone, -Monitor for urine retention, check post void residuals Nonalcoholic cirrhosis with mildly elevated ammonia level. No signs of hepatic encephalopathy. -Restart lactulose and Lasix -monitor LFT and ammonia level daily Diabetes mellitus, type II with long-term current use of insulin, uncontrolled with hyperglycemia, -check HbA1c. -Continue to monitor blood sugar. -hold oral diabetic medication during hospital stay -Continue diabetic diet with sliding scale insulins with NovoLog sliding scale. -Long-acting insulins in appropriate dosing with Lantus. -hypoglycemia protocol as needed Hypothyroidism. Restart levothyroxine and check TSH. Generalized weakness. Most likely due to her general condition and comorbidities. -PT and OT evaluation -Fall precaution COPD, active smoker. Stable. -Restart Spiriva and albuterol as needed -Nicotine patch Depression. Restart doxepin. Time-Based Coding :: [TOTAL MINUTES] spent with patient and on the chart (including review of chart, obtaining history, exam, reviewing outside data, placing orders, documenting exam and treatment plan, and counseling patient) on [DATE]. Quality VTE Deep Vein Thrombosis/Pulmonary Embolism Present on Admission: No MIPS - Admit I confirm the patient?s Advance Care Plan is present, Code status is documented, Surrogate decision maker is in patient?s record [If Yes, STOP here]: Yes MIPS - Meds 'Current medications' to include all prescriptions, [id number] products, herbals, cannabis/cannabidiol products, and vitamin/mineral/dietary (nutritional) supplements. I have utilized all available resources to obtain, update, or review the patient?s current medications. [If Yes, STOP here]: Yes
[2024-06-29] MEDS: LEVOTHYROXINE 75 MCG TABLET 150 MCG PO (06:42)
--- NOTE | 2024-06-29 07:26 | PC.NURSE ---
Pt. admitted to room 216 for weakness,. Oriented to her room able to get up OOB to the BSC with 1 person assist with the walker. Denies any fall at home for the past 3 months. Will monitor & continue plan of care.
--- NOTE | 2024-06-29 07:45 | PM.PN.1 ---
Subjective Subjective Date Patient Seen: 06/29/24 Interval history: She is seen today to follow-up her end-stage liver disease and urinary tract infection with weakness. She tells me that her ascites and end-stage liver disease has been quite stable and that as recently as [place] she was able to prepare meals for her family. She has a GI doctor at [facility] in [place]. Her PCP is Dr. Rogers Arias. It sounds like a tips procedure was being discussed but she was apparently felt to be too unstable? She declines a Referral for home health RN visits and instead wants a caregiver to visit every day for 2 hours. She does not have long-term care coverage or finances to cover that so that is a problem. 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 Her works full-time at the home [employer] store. Her UA showed 10-3 wbc's and 5-10 RBCs. She does have massive ascites on exam today. The ammonia level was 38 and the CBC was normal. The sodium level is 135 with a potassium of 3.6 and a creatinine of 1.69. The TSH is high at 6.22. Exam Vital Signs (past 8 hours): - 06/29/24 03:38 06/29/24 05:41 Temperature 97.5 F L Pulse Rate 87 85 Respiratory Rate 20 19 Blood Pressure 127/59 L 99/52 L Pulse Oximetry 98 93 Oxygen Delivery Method Nasal Cannula Oxygen Flow Rate 2 0 Oxygen Delivery Method Nasal Cannula Oxygen Flow Rate 0 Narrative Exam Narrative: Alert and oriented x3. Mild emotional distress present. Heart is regular rate and rhythm without murmur Lungs are clear to auscultation bilaterally Extremities have 1+ pitting ankle edema Abdomen has massive ascites. There is no tenderness. Objective Labs 06/28/24 21:45 06/29/24 06:25 Labs: Laboratory Results - last 24 hr 06/28/24 06/28/24 06/29/24 21:28 21:45 03:42 WBC 7.8 RBC 4.55 Hgb 12.9 Hct 39.8 MCV 87.4 MCH 28.3 MCHC 32.4 RDW 20.4 H Plt Count 123 L Neut % (Auto) 85.1 H Lymph % (Auto) 5.5 L [place] % (Auto) 8.3 Eos % (Auto) 0.4 L Baso % (Auto) 0.7 Neut # (Auto) 6700 Lymph # (Auto) 400 L [place] # (Auto) 700 Eos # (Auto) 0 Baso # (Auto) 100 RBC Morphology See below Anisocytosis 2+ H Sodium 135 L Potassium 4.3 Chloride 102 Carbon Dioxide 28 BUN 25 H Creatinine 1.81 H Estimated GFR 29 L BUN/Creatinine Ratio 13.8 Glucose 231 H Calcium 8.1 L Total Bilirubin 0.5 AST 39 H ALT 23 Alkaline Phosphatase 150 H Ammonia 38 H Total Protein 6.4 Albumin 3.2 L Globulin 3.2 Albumin/Globulin Ratio 1.0 Lipase 120 Urine RBC 5-10/hpf H Urine WBC 10-30/hpf H Ur Squamous Epith Cells 1-5 /hpf Urine Bacteria Moderate (10-30) H Ur Culture Indicated? Specimen cultured Vol Urine Centrifuged 10ml (spun) PFS Social History marital status: household members: spouse Smoking Status: Current every day smoker Tobacco: How many years used: 56 alcohol intake: never Assessment & Plan Assessment & Plan narrative: UTI -Blood culture, urine culture pending -Ceftriaxone, -Monitor for urine retention Nonalcoholic cirrhosis/massive ascites with mildly elevated ammonia level. No signs of hepatic encephalopathy. -Lactulose, spironolactone and Lasix -monitor LFT and ammonia level daily -patient declines paracentesis at this time Diabetes mellitus, type II with long-term current use of insulin, uncontrolled with hyperglycemia, -check HbA1c. -Continue to monitor blood sugar. -hold oral diabetic medication during hospital stay -Continue diabetic diet with sliding scale insulins with Lispro sliding scale. -Lantus -hypoglycemia protocol as needed Hypothyroidism. Increase dose of levothyroxine. TSH 6.22. Generalized weakness. Most likely due to her general condition and comorbidities. -PT and OT evaluation -Fall precaution COPD, active smoker. Stable. -Restart Spiriva and albuterol as needed -Nicotine patch Depression. Restart doxepin. Disposition: Declines discussion of SNF but has limited family support at home. Time-Based Coding :: [TOTAL MINUTES] spent with patient and on the chart (including review of chart, obtaining history, exam, reviewing outside data, placing orders, documenting exam and treatment plan, and counseling patient) on [DATE]. Quality VTE Deep Vein Thrombosis/Pulmonary Embolism Present on Admission: No
[2024-06-29 07:48] LABS: Cholesterol 97 mg/dL (140-199); HDL Cholesterol 37 mg/dL (40-60); LDL Cholesterol Calculated 44 mg/dL (<100); Triglycerides 81 mg/dL (35-150)
[2024-06-29 07:49] LABS: Alanine Aminotransferase 21 IU/L (<35); Albumin 2.9 g/dL (3.5-5.0); Albumin Globulin Ratio 0.9 (1.0-2.8); Alkaline Phosphatase 125 U/L (38-126); Aspartate Aminotransferase 45 IU/L (14-36); BUN Creatinine Ratio 14.2 (6-22); Bilirubin Total 0.5 mg/dL (0.2-1.3); Blood Urea Nitrogen 24 mg/dL (7-17); Calcium 8.3 mg/dL (8.4-10.2); Carbon Dioxide 27 mmol/L (22-32); Chloride 104 mmol/L (98-107); Estimated Glomerular Filt Rate 32 mL/min (>60); Globulin 3.2 g/dL (1.7-4.1); Glucose 103 mg/dL (80-110); HEMOLYSIS 19 (0-50); Magnesium 2.2 mg/dL (1.6-2.3); Potassium 3.6 mmol/L (3.4-5.1); Sodium 135 mmol/L (137-145); Total Protein 6.1 g/dL (6.3-8.2)
[2024-06-29 08:20] LABS: Thyroid Stimulating Hormone 6.22 uIU/mL (0.47-4.68)
[2024-06-29] MEDS: SPIRONOLACTONE 25 MG TABLET PO (08:35)
[2024-06-29] MEDS: PREGABALIN 50 MG CAPSULE PO (08:35)
[2024-06-29] MEDS: FUROSEMIDE 40 MG TABLET PO ×2 (08:35→21:17)
[2024-06-29] MEDS: SODIUM CHLORIDE 0.9% FLUSH 10 ML IV ×2 (08:36→21:17)
[2024-06-29] MEDS: LACTULOSE 20 GM/30 ML SOLUTION PO ×2 (08:36→21:17)
[2024-06-29] MEDS: ALBUTEROL 2.5 MG/3 ML NEB (ADULT) INH (09:07)
[2024-06-29] MEDS: IPRATROPIUM 0.5 MG/2.5 ML NEB INH ×3 (09:07→19:58)
--- NOTE | 2024-06-29 14:18 | CM.DANOTE ---
Initial DCP Assessment Note Pt is a 74 yo female, resident of [place], arrives with weakness and difficulty ambulating. PMH includes nonalcoholic cirrhosis with ascites with frequent paracentesis most recently on 06/26/2024 at [facility]. PCP: Rogers Iglesias Payer: [employer] Reviewed chart, met w/patient who explains she lives w/spouse who works M-F at [employer]. Patient's spouse assist patient with chores, meal prep and higher ADLs as needed. Patient typically can get around w/o AD, uses a walker as needed. Discussed home health. Patient has hx with neftali COHN. Patient states she does not feel this service will be helpful right now. Patient asks if [facility] would cover an RN in her home a few hours a day, explained [facility] does not cover in home care. State-funded Medicaid might cover ad terminal makeup operator care if patient applies and is financially and functionally eligible. Senior resource guide and application for [employer] retirement care provided to patient. PT/OT ordered and pending. CM team will plan to follow clinical course closely. Plan: Patient is currently OBS, anticipate return home, patient declines HH presently. emt intermediate care resources provided. ERMA Vance Discharge Planning/Care Management CM Discharge Assessment Start: 06/29/24 13:59 Freq: Status: Active Protocol: Document 06/29/24 13:59 HAKEME (Rec: 06/29/24 14:17 HAKEEM [id number]) Discharge Planning Assessment Assigned Jockey Room Custodian ERMA Dooley DPOA/Assigned Designee Name Jose Martin Olivia, spouse Contact Information [phone] cell [phone] home Advance Directives? No History Provided By Patient,Medical Record Prior Living Arrangements House Household Members spouse Type of transporation used prior to Relies on Others admit Independent with ADL's No Is patient alert and oriented? Yes Needs Assistance With Bathing,Grooming,Meal Prep, Managing Medications,Home Chores / Shopping Community Services used prior to Physical Therapy,Home Health admission: Aid,Home Health Nurse Comment Hx neftali [facility] DME Already Rented / Owned FWW / Walker Barriers to Discharge Yes Comment Patient's spouse works M-F, qi specialist at [employer]. Patient reports needing assist at baseline and would like to have a caregiver a few hours daily but cannot afford to pay privately. Resources provided . therapies ordered.
--- NOTE | 2024-06-29 15:08 | CM.DPNOTE ---
DCP Cont Community resources provided. Patient is a , is not enrolled in any services or benefits at this time, other than secondary insurance coverage. Spouse plans to contact the [employer] ([employer] P [phone] ([place], [place]) to ask about available resources for patient. HAKEEM
--- NOTE | 2024-06-29 15:24 | OT.IP.EVAL ---
Occupational Therapy Inpatient Evaluation/Re-Eval M1 PT/OT-IP Prior Functional Status Start: 06/29/24 15:26 Freq: NEEDED Status: Active Protocol: Document 06/29/24 15:28 [facility] (Rec: 06/29/24 15:48 [facility] [id number]) Medical Review Prior Functional Status Communication I Mobility and Gait Pt states uses the SPC outside and furniture cruises inside. Activities of Daily Living and IADL's Pt states due to recent weakness her doing IADl needs. Social History Household Members spouse Living Arrangements House Number of Floors (Floors) One Floor Number of Stairs To Enter/Railing? One step to get in and have one step from living room to/ from dining room , dining room to/from kitchen and has grab bars located there to assist her. Home Environment Standard Height Toilet,Tub/ Shower Home Equipment Four Wheel Walker,Quad Cane, Grab Bars Near Toilet,Grab Bars In Shower Additional Social History Comment Pt work M-F 7-3pm and states works this Wednesday. Pt has an adjustable bed. M2 OT-IP Current Condition Start: 06/29/24 15:27 Freq: Status: Active Protocol: Document 06/29/24 15:28 [facility] (Rec: 06/29/24 15:48 [facility] [id number]) Occupational Therapy Current Condition Current Condition Evaluation Date 06/29/24 Treatment Diagnosis UTI, weakness Diagnosis Onset Date 06/29/24 M3 OT- IP Subjective and Pain Start: 06/29/24 15:27 Freq: Status: Active Protocol: Document 06/29/24 15:28 [facility] (Rec: 06/29/24 15:48 [facility] [id number]) OT- Subjective Occupational Therapy Visit Type Type Initial Evaluation Visit Start Time 14:45 Visit Stop Time 15:24 Occupational Therapy Visit Comments Patient Comments Pt's just arrived and pt agreed to get up. Patient/Caregiver Goals TO go home. OT Pain Assessment Pain When Pain Assessed At Rest Pain Present Pain Present Denied Pain M4 OT- IP ADL's Start: 06/29/24 15:27 Freq: Status: Active Protocol: Document 06/29/24 15:28 [facility] (Rec: 06/29/24 15:48 [facility] [id number]) OT OZP-Cirr-Cmcyxez General Evaluation Self-Feeding Ability Independent OT ADL-Grooming Comments OT Grooming Comments Pt not wanting to perform. OT ADL-Oral Care Comments Oral Care Comments Not performed. OT ADL-Dressing General Eval Lower Body Dressing Ability Maximum Assistance Comments OT Dressing Comments Pt does not weat socks at home . OT ADL-Toileting General Evaluation Toileting Ability Standby Assistance Comments OT Toileting Comments Pt able to do with SBA. Pt would greatly benefit from a bidet at home to use. OT ADL-Bathing Comments OT Bathing Comments Pt will benefit assist for completeness and to get shower chair and HHSP. M5 OT- IP IADL's Start: 06/29/24 15:27 Freq: Status: Active Protocol: Document 06/29/24 15:28 [facility] (Rec: 06/29/24 15:48 [facility] [id number]) OT-Instrumental Activities of Daily Living Home Safety Awareness Home Safety Comments Pt insistent that she will be fine at home. Medication Management Medication Management Comments Pt states does on her own. Money Management Money Management Comments Pt states does on her own. Meal Preparation Meal Preparation Caregiver Provides Assist Head Of Business Development Head Of Business Development Caregiver Provides Assist M6 OT- IP Functional Cognition Start: 06/29/24 15:27 Freq: Status: Active Protocol: Document 06/29/24 15:28 [facility] (Rec: 06/29/24 15:48 [facility] [id number]) Cognitive Factors Limiting Selfcare Function Cognitive Ability Level of Alertness Alert Patient Orientation Name,Place,Situation Attention Span Ability Capable of Focused Attention, Capable of Sustained Attention Ability to Follow Commands Able to Follow One Step Commands Safety Awareness Underestimates Need for Assistance Cognitive Comments Cognitive Assessment Comments Pt able to follow command for ADL and mobility needs. Pt needing safety cues to back up all the way to the toilet and bed prior to sitting back down. Pt to benefit from SLUMS .Pt looks to her to assist her but is able to complete on her own with increased time. OT- Vision and Hearing OT- Hearing Assessment OT- Hearing Assessment WFL OT- Vision Assessment Visual Acuity Glasses For Reading Visual Attentiveness WFL Occular Pursuits WFL Visual Convergence WFL M7 OT- IP Mobility and Balance Start: 06/29/24 15:27 Freq: Status: Active Protocol: Document 06/29/24 15:28 [facility] (Rec: 06/29/24 15:48 [facility] [id number]) OT- Bed Mobility Assessment Supine to Sit Supine to Sit Assist Minimal Assistance Sit to Supine Sit to Supine Assist Contact Guard Assistance Scooting Scooting to Edge of Bed Contact Guard Assistance OT-Transfer Assessment Sit to and From Stand Sit to and from Stand Contact Guard Assistance Transfers Transfer Ability Contact Guard Assistance Technique Transfer Destination Bed,Toilet Transfer Technique Stand Step Pivot Devices Transfer Assistive Devices Gait Belt,Front Wheeled Walker Comments Mobility Comments MARLEE to help pull up from supine. Suggested pt get a bed rail for home. CGA to stand and with use of FWW, pt a little unsteady on her feet as feeling a little weak. OT- Balance Assessment Sitting Balance and Reactions Static Sitting Balance Ability Normal Dynamic Sitting Balance Ability Good Standing Balance and Reactions Static Standing Balance Ability Good Dynamic Standing Balance Ability Fair M8 OT- IP Objective Assessments Start: 06/29/24 15:27 Freq: Status: Active Protocol: Document 06/29/24 15:28 [facility] (Rec: 06/29/24 15:48 [facility] [id number]) OT Gross Range of Motion Upper Extremity Range of Motion Assessment Within Functional Limits OT Strength Upper Extremity Strength Assessment Within Functional Limits OT- Coordination Assessment Upper Extremity Finger to Nose Test Within Functional Limits M9 OT- IP Assessment and Plan Start: 06/29/24 15:27 Freq: Status: Active Protocol: Document 06/29/24 15:28 [facility] (Rec: 06/29/24 15:48 [facility] [id number]) OT Summary Assessment and Plan Potential Rehabilitation Potential Excellent Analytic Complexity at Evaluation Low Summary OT Impairments Balance,Functional Mobility, Dressing,Bathing,Shower Transfers,Activity Tolerance Progress Towards Goals Progressing Toward Goals Assessment Summary Pt low complexity and here due to UTI and having weakness overall, but doing better per pt. Pt states feels 50% of her baseline at this time. Pt to go home with increased assist and 24/7 assist initially. Pt would benefit from home health but refusing at this time. Goals Self-Feeding Goal Independent Grooming Goal Independent Dressing Goal Independent Toileting Goal Independent Bathing Goal Standby Assistance Toilet Transfer Goal Independent Shower Transfer Goal Standby Assistance Days to Meet Goals 5 Frequency of Treatment Other frequency 5x/week Treatment Plan OT Treatment Plan ADL Training,Functional Mobility,Patient/Family Education,Discharge Planning Discharge Recommendations OT Discharge Recommendations Home with 24/7 Assist Available,Home Health Home Equipment Needs BSC, shower chair, HHPS, bed rail Transportation Needs at Discharge Private Vehicle
--- NOTE | 2024-06-29 16:16 | PT.IIE ---
Physical Therapy Inpatient Evaluation/Re-Eval M1 PT/OT-IP Prior Functional Status Start: 06/29/24 15:26 Freq: NEEDED Status: Active Protocol: Document 06/29/24 15:41 [facility] (Rec: 06/29/24 16:15 [facility] [id number]) Medical Review Prior Functional Status Communication I Mobility and Gait Pt states uses the SPC outside and furniture cruises inside. Activities of Daily Living and IADL's Pt states due to recent weakness her doing IADl needs. Social History Household Members spouse Living Arrangements House Number of Floors (Floors) One Floor Number of Stairs To Enter/Railing? One step to get in and have one step from living room to/ from dining room , dining room to/from kitchen. Home Environment Standard Height Toilet,Tub/ Shower Home Equipment Four Wheel Walker,Quad Cane, Grab Bars Near Toilet,Grab Bars In Shower Additional Social History Comment Pt work M-F 7-3pm and states works this Wednesday. Pt has an adjustable bed. M2 PT-IP Current Condition Start: 06/29/24 15:26 Freq: NEEDED Status: Active Protocol: Document 06/29/24 15:41 MB (Rec: 06/29/24 16:15 MB [id number]) Physical Therapy Current Condition Current Condition Evaluation Date 06/29/24 Treatment Diagnosis Abdominal ascites, UTI, SOB M3 PT-IP Subjective Start: 06/29/24 15:26 Freq: NEEDED Status: Active Protocol: Document 06/29/24 15:41 MB (Rec: 06/29/24 16:15 MB [id number]) Subjective Physical Therapy Visit Type Type Initial Evaluation Visit Start Time 15:41 Visit Stop Time 16:00 Number of HULL AND DECK REMOVER Visits 0 Physical Therapy Visit Comments Patient Comments I have to do it again? Pt reports getting up is difficult M4 PT-IP Mobility and Gait Start: 06/29/24 15:26 Freq: NEEDED Status: Active Protocol: Document 06/29/24 15:41 MB (Rec: 06/29/24 16:15 MB [id number]) PT-Bed Mobility Assessment Supine to Sit Supine to Sit Contact Guard Assistance,1 Person Assistance,Head of Bed Elevated,Bedrails Sit to Supine Sit to Supine Contact Guard Assistance,1 Person Assistance,Head of Bed Elevated,Bedrails Scooting Scooting to Edge of Bed Contact Guard Assistance Scooting Up and Down in Bed Contact Guard Assistance PT-Transfer Assessment Sit to and From Stand Sit to and from Stand Contact Guard Assistance,1 Person Assistance,Use of Upper Extremities Equipment Transfer Assistive Device Gait Belt,Small Based Quad Cane Orthotic/Prosthetic Devices or Brace: No Transfers Transfer Destination Toilet Transfer Technique Ambulation Transfer Ability Level of Assist Contact Guard Assistance,1 Person Assistance,Use of Upper Extremities Comments Mobility Comments Doorway and door reaching with gait, slipping forward on bed before standing (feet don't fully touch feet), rocks on side of SBQC, total assistance to wipe after urination on toilet Gait Assessment Gait Gait Assistance Required: Contact Guard Assist Distance (Feet) 20 Able to Maintain Weight Bearing Status Yes During Gait Assistive Devices Assistive Device Gait Belt,Small Based Quad Cane Orthotic/Prosthetic Devices or Brace: No Gait Deviations General Gait Pattern Antalgic,Decreased Stride Length,Step-to Gait,Wide Based Gait Factors Limiting Gait Function Factors Limiting Gait Function Decreased Activity Tolerance, Difficulty Following Directions,Pain,Poor Balance, Poor Safety Awareness Comments Gait Comments Wide RADHA, rocks on side of SBQC and switches hands with gait which does not work well d/t one side is not straight and cane needs to be adjusted, poor safety awareness PT-Balance Assessment Sitting Balance and Reactions Static Sitting Balance Ability Good Dynamic Sitting Balance Ability Fair Standing Balance and Reactions Static Standing Balance Ability Fair Dynamic Standing Balance Ability Poor Device Used SBQC M5 PT-IP Objective Assessments Start: 06/29/24 15:26 Freq: NEEDED Status: Active Protocol: Document 06/29/24 15:41 MB (Rec: 06/29/24 16:15 MB [id number]) Orientation Orientation/Cognition Level of Alertness Alert Safety Awareness Decreased Safety Awareness Gross Range of Motion Upper Extremity ROM Impairments Defer to OT Lower Extremity ROM Assessment Bilaterally Impaired Impairments B hip flexion limited from large abdominal pannus Strength Lower Extremity Strength Assessment Bilaterally Impaired Comments Strength Comments ? effort with MMT and 3-/5 all B ankle DF, great toe extension and knee extension Coordination Assessment Assessment Coordination Comments NT Sensation Assessment Comments Sensation Comments NT M6 PT-IP Treatment Start: 06/29/24 15:26 Freq: NEEDED Status: Active Protocol: Document 06/29/24 15:41 MB (Rec: 06/29/24 16:15 MB [id number]) Physical Therapy Treatment Exercises Exercises Ankle Pumps Education Education Provided Safety M7 PT-IP Assessment and Plan Start: 06/29/24 15:26 Freq: NEEDED Status: Active Protocol: Document 06/29/24 15:41 MB (Rec: 06/29/24 16:15 MB [id number]) PT Summary Assessment and Plan Potential Rehabilitation Potential Fair Status of Condition at Evaluation Unstable Summary Impairments Pain,ROM,Strength,Balance, Coordination,Cognition,Bed Mobility,Transfers,Gait, Activity Tolerance Progress Towards Goals Slow Progress due to Activity Tolerance Assessment Summary Pt is a lady presenting with very large abdominal ascites/ pannus, functional LE weakness , discomfort, poor safety awareness and impaired mobility. Pt will benefit from PT to increase gait distance and stair training. Recommend increased assistance and HHPT at home. Goals Bed Mobility Goal Independent Transfer Goal Independent Gait Goal Independent Gait Distance 50 Other Goals Gait with SBQC Pt will ascend and descend 1 step with SBQC and no more than CGA to allow safe home entrance. Days to Meet Goals 5 Frequency of Treatment Frequency Of Treatment Once a Day Treatment Plan Physical Therapy Treatment Plan Bed Mobility Training,Transfer Training,Gait Training, Therapeutic Exercise,Balance Retraining,Discharge Planning, Hot or Cold Pack,Neuromuscular Re-ed,Coordination Retraining ,Manual Therapy Other Recommendations and Next Treatment Take the step inside room to Focus practice Precautions Other Precautions Fall risk Recommendations To Nursing Amount of Assist Needed 1 Person Assist Discharge Recommendations PT Discharge Recommendations Home with Assistance,Home Health Transportation Needs at Discharge Private Vehicle
[2024-06-29] MEDS: INSULIN LISPRO 100 UNIT/ML 3ML VIAL SUBCUT ×2 (16:35→21:18)
[2024-06-29] MEDS: INSULIN GLARGINE 100 UNIT/ML 3ML PEN 50 UNIT SUBCUT (21:19)
[2024-06-30] MEDS: cefTRIAXone 1,000 MG in SODIUM CHLORIDE 0.9% 100 ML 200 MG IV (05:49)
[2024-06-30] MEDS: LEVOTHYROXINE 100 MCG, LEVOTHYROXINE 75 MCG 175 MCG PO (05:49)
--- NOTE | 2024-06-30 07:43 | P.PN_ITS ---
Subjective Subjective Date Patient Seen: 06/30/24 Interval history: She is seen today to follow-up her UTI symptoms, weakness and end-stage liver disease/ascites. Her abdomen continues to expand, as expected based on previous intervals between needing paracentesis. The urine culture showing no growth. She will be changed from IV antibiotics to oral but it is beginning to look like she does not have a documented UTI. Regardless of that statement she has improved with antibiotic treatment. The ammonia level is less than 9. The creatinine is 1.84. An A1c has been ordered. She says she has been walking to the bathroom. Her is visiting. She would like the sutures removed from the last paracentesis insertion needle site. Exam Vital Signs (past 8 hours): Fraction of Inspired Oxygen 21 SaO2/FiO2 Ratio 461 Oxygen Delivery Method Room Air Oxygen Flow Rate 0 Narrative Exam Narrative: Alert and oriented x3. No apparent distress. Enlarging massive ascites. Heart is regular rate and rhythm without murmur Lungs have wheezes bilaterally Extremities have no ankle edema. Objective Labs 06/28/24 21:45 06/30/24 08:19 Labs: Laboratory Results - last 24 hr 06/29/24 06:25 Sodium 135 L Potassium 3.6 Chloride 104 Carbon Dioxide 27 BUN 24 H Creatinine 1.69 H Estimated GFR 32 L BUN/Creatinine Ratio 14.2 Glucose 103 D Calcium 8.3 L Magnesium 2.2 Total Bilirubin 0.5 AST 45 H ALT 21 Alkaline Phosphatase 125 Total Protein 6.1 L Albumin 2.9 L Globulin 3.2 Albumin/Globulin Ratio 0.9 L Triglycerides 81 Cholesterol 97 L LDL Cholesterol, Calc 44 HDL Cholesterol 37 L TSH 6.22 H [facility] Social History marital status: household members: spouse Smoking Status: Current every day smoker Tobacco: How many years used: 56 alcohol intake: never Assessment & Plan Assessment & Plan narrative: UTI -Blood culture and urine culture with no growth -Ceftriaxone for 2 days then changed to Keflex when urine culture showed no growth. -Monitor for urine retention Nonalcoholic cirrhosis/massive ascites with mildly elevated ammonia level. No signs of hepatic encephalopathy. -Lactulose, spironolactone and Lasix -monitor LFT and ammonia level daily -patient declines paracentesis at this time Diabetes mellitus, type II with long-term current use of insulin, uncontrolled with hyperglycemia, -A1c 7.1 -Continue to monitor blood sugar. -hold oral diabetic medication during hospital stay -Continue diabetic diet with sliding scale insulins with Lispro sliding scale. -Lantus -hypoglycemia protocol as needed Hypothyroidism. Increased dose of levothyroxine. TSH 6.22. Generalized weakness. Most likely due to her general condition and comorbidities. -PT and OT evaluation -Fall precaution COPD, active smoker. Stable. -Restart Spiriva and albuterol as needed -Nicotine patch Depression. Restart doxepin. Disposition: Declines discussion of SNF but has limited family support at home. Plan discharge on 06/30/24. Time-Based Coding :: [TOTAL MINUTES] spent with patient and on the chart (including review of chart, obtaining history, exam, reviewing outside data, placing orders, documenting exam and treatment plan, and counseling patient) on [DATE]. Quality VTE Deep Vein Thrombosis/Pulmonary Embolism Present on Admission: No
[2024-06-30 08:00] VITALS: BP 116/60; PULSE 81; RESP 20; TEMP 35.9; O2SAT 95
--- NOTE | 2024-06-30 08:15 | PT.IPTN ---
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 She reports occasional stabbing pain no rime or reason in abdomen. Therapy Pain Assessment Location abdomen Scale Used 4/10 during mobility Description Aching,Pressure,With Movement Pain Behaviors Facial Grimacing Pain Management Techniques Distraction,Re-positioning M4 PT-IP Mobility and Gait Start: 06/29/24 15:26 Freq: NEEDED Status: Active Protocol: Document 06/30/24 07:55 SP (Rec: 06/30/24 08:54 SP [id number]) PT-Bed Mobility Assessment Supine to Sit Supine to Sit Standby Assistance,Head of Bed Elevated,Bedrails Sit to Supine Sit to Supine Minimal Assistance,Moderate Assistance,1 Person Assistance ,Head of Bed Elevated,Bedrails Scooting Scooting to Edge of Bed Standby Assistance Scooting Up and Down in Bed Standby Assistance PT-Transfer Assessment Sit to and From Stand Sit to and from Stand Standby Assistance,1 Person Assistance,Use of Upper Extremities Equipment Transfer Assistive Device Gait Belt,Small Based Quad Cane Orthotic/Prosthetic Devices or Brace: No Transfers Transfer Destination Bed Transfer Technique Ambulation Transfer Ability Level of Assist Standby Assistance,Contact Guard Assistance,Use of Upper Extremities Comments Mobility Comments Education gentle breathing an dbelly draw in when having pain for improved relaxation. Elevated sup>sit>scoot EOB SBA . STS SBA /c QC and UE on bed. gait around room CGA- SBA and PRODUCE [employer]ER managed IV pole, cues for full 4 points QC on floor approx 30 ft , occasional contact bed frame/wall for added support does at home. Completed 1 step mgt (portable brought in room) use sink rail and QC as has handle on wall at home, to assimulate enter home and between rooms in house. Pt returned to bed Min/MOd A for each LE into bed , cues for self bridge repositioning center self. Pt hadc call light and all needs in reach befor left. Gait Assessment Gait Gait Assistance Required: Standby Assistance,Contact Guard Assist Distance (Feet) 30 Able to Maintain Weight Bearing Status Yes During Gait Assistive Devices Assistive Device Gait Belt,Small Based Quad Cane Orthotic/Prosthetic Devices or Brace: No Gait Deviations General Gait Pattern Antalgic,Decreased Stride Length,Step-to Gait,Wide Based Gait Factors Limiting Gait Function Factors Limiting Gait Function Decreased Activity Tolerance, Decreased Strength,Pain,Poor Safety Awareness Comments Gait Comments See mobility comments Stair Climbing Assessment Evaluation Level of Assist On Stairs Contact Guard Assistance,1 Person Assistance Devices Stair Climbing Assistive Devices Small Base Quad Cane,Right Railing Technique/Endurance Stair Climbing Direction Ascend and Descend Stair Climbing Technique Step to Step Number of Steps Climbed 1 Stair Climbing Set # Repetitions (reps) 1 Comments Stair Climbing Comments see mobiltiy comments PT-Balance Assessment Sitting Balance and Reactions Static Sitting Balance Ability Normal Dynamic Sitting Balance Ability Good Standing Balance and Reactions Static Standing Balance Ability Normal Dynamic Standing Balance Ability Good Device Used SBQC M5 PT-IP Objective Assessments Start: 06/29/24 15:26 Freq: NEEDED Status: Active Protocol: Document 06/29/24 15:41 MB (Rec: 06/29/24 16:15 MB [id number]) Orientation Orientation/Cognition Level of Alertness Alert Safety Awareness Decreased Safety Awareness Gross Range of Motion Upper Extremity ROM Impairments Defer to OT Lower Extremity ROM Assessment Bilaterally Impaired Impairments B hip flexion limited from large abdominal pannus Strength Lower Extremity Strength Assessment Bilaterally Impaired Comments Strength Comments ? effort with MMT and 3-/5 all B ankle DF, great toe extension and knee extension Coordination Assessment Assessment Coordination Comments NT Sensation Assessment Comments Sensation Comments NT M6 PT-IP Treatment Start: 06/29/24 15:26 Freq: NEEDED Status: Active Protocol: Document 06/30/24 07:55 SP (Rec: 06/30/24 08:54 SP [id number]) Physical Therapy Treatment Exercises Exercises Ankle Pumps Education Education Provided Safety M7 PT-IP Assessment and Plan Start: 06/29/24 15:26 Freq: NEEDED Status: Active Protocol: Document 06/30/24 07:55 SP (Rec: 06/30/24 08:54 SP [id number]) PT Summary Assessment and Plan Potential Rehabilitation Potential Fair Status of Condition at Evaluation Unstable Summary Impairments Pain,ROM,Strength,Balance, Coordination,Cognition,Bed Mobility,Transfers,Gait, Activity Tolerance Progress Towards Goals Slow Progress due to Pain,Slow Progress due to Activity Tolerance Assessment Summary Pt SBA sup>sit, Sit>sup Min/ MOd A for each LE into bed, use bed rails and self repositioning in bed. Gait /c SBQC around room 30 ft SBA, Completed 1 step mgt 1 HR and QC CGA to assimulate home enterance and between rooms in home. Pt is ok return home with family support 24/7 available HHPT for progress strength when medically cleared. Goals Bed Mobility Goal Independent Transfer Goal Independent Gait Goal Independent Gait Distance 50 Other Goals Gait with SBQC Pt will ascend and descend 1 step with SBQC and no more than CGA to allow safe home entrance. Days to Meet Goals 5 Frequency of Treatment Frequency Of Treatment Once a Day Treatment Plan Physical Therapy Treatment Plan Bed Mobility Training,Transfer Training,Gait Training, Therapeutic Exercise,Balance Retraining,Discharge Planning, Hot or Cold Pack,Neuromuscular Re-ed,Coordination Retraining ,Manual Therapy Other Recommendations and Next Treatment further distance gait, sit>sup Focus Precautions Other Precautions Fall risk Recommendations To Nursing Amount of Assist Needed Standby Assistance Discharge Recommendations PT Discharge Recommendations Home with 24/7 Assist Available,Home Health Transportation Needs at Discharge Private Vehicle
[2024-06-30] MEDS: FUROSEMIDE 40 MG TABLET PO (08:24)
[2024-06-30] MEDS: LACTULOSE 20 GM/30 ML SOLUTION PO (08:24)
[2024-06-30] MEDS: SPIRONOLACTONE 25 MG TABLET PO (08:24)
[2024-06-30] MEDS: PREGABALIN 50 MG CAPSULE PO (08:24)
[2024-06-30] MEDS: SODIUM CHLORIDE 0.9% FLUSH 10 ML IV (08:25)
[2024-06-30] MEDS: IPRATROPIUM 0.5 MG/2.5 ML NEB INH (08:50)
[2024-06-30] MEDS: ALBUTEROL 2.5 MG/3 ML NEB (ADULT) INH (08:50)
[2024-06-30 08:53] LABS: Ammonia (NH3) < 9 umol/L (9-30)
[2024-06-30 08:55] LABS: Alanine Aminotransferase 27 IU/L (<35); Albumin 3.1 g/dL (3.5-5.0); Albumin Globulin Ratio 1.1 (1.0-2.8); Alkaline Phosphatase 152 U/L (38-126); Aspartate Aminotransferase 55 IU/L (14-36); BUN Creatinine Ratio 13.6 (6-22); Bilirubin Total 0.6 mg/dL (0.2-1.3); Blood Urea Nitrogen 25 mg/dL (7-17); Calcium 8.3 mg/dL (8.4-10.2); Carbon Dioxide 31 mmol/L (22-32); Chloride 102 mmol/L (98-107); Estimated Glomerular Filt Rate 29 mL/min (>60); Globulin 2.9 g/dL (1.7-4.1); Glucose 99 mg/dL (80-110); HEMOLYSIS < 15 (0-50); Magnesium 2.2 mg/dL (1.6-2.3); Potassium 3.6 mmol/L (3.4-5.1); Sodium 136 mmol/L (137-145)
--- NOTE | 2024-06-30 10:33 | OT.IP.TRT ---
Occupational Therapy Treatment Note M2 OT-IP Current Condition Start: 06/29/24 15:27 Freq: Status: Active Protocol: Document 06/29/24 15:28 [facility] (Rec: 06/29/24 15:48 [facility] [id number]) Occupational Therapy Current Condition Current Condition Evaluation Date 06/29/24 Treatment Diagnosis UTI, weakness Diagnosis Onset Date 06/29/24 M3 OT- IP Subjective and Pain Start: 06/29/24 15:27 Freq: Status: Active Protocol: Document 06/30/24 11:43 [facility] (Rec: 06/30/24 11:49 [facility] [id number]) OT- Subjective Occupational Therapy Visit Type Type Treatment Note Visit Start Time 10:25 Visit Stop Time 10:33 Occupational Therapy Visit Comments Patient Comments Pt not wanting to do cognitive assessment as feels she is back to her baseline, pt's agreed. Patient/Caregiver Goals TO go home. OT Pain Assessment Pain When Pain Assessed At Rest Pain Present Pain Present Denied Pain M6 OT- IP Functional Cognition Start: 06/29/24 15:27 Freq: Status: Active Protocol: Document 06/30/24 11:43 [facility] (Rec: 06/30/24 11:49 [facility] [id number]) Cognitive Factors Limiting Selfcare Function Cognitive Ability Level of Alertness Alert Patient Orientation Name,Age,Birthday,Month,Date, Year,Day of Week,Place, Situation Attention Span Ability Capable of Focused Attention, Capable of Sustained Attention Ability to Follow Commands Able to Follow Multi-Step Commands Cognitive Comments Cognitive Assessment Comments Pt states at her baseline. Pt able to answer all home safety situations with good accuracy. Pt able to communicate with her and remembering from OT conversation yesterday that a bed rail would be beneficial to help with bed mobility needs. In addition, pt thinking of having the bed lowered. Pt also able to directly communicate with her of how best to help her as at time she feels that he is getting too anxious and using too much pressure on her . M8 OT- IP Objective Assessments Start: 06/29/24 15:27 Freq: Status: Active Protocol: Document 06/29/24 15:28 [facility] (Rec: 06/29/24 15:48 [facility] [id number]) OT Gross Range of Motion Upper Extremity Range of Motion Assessment Within Functional Limits OT Strength Upper Extremity Strength Assessment Within Functional Limits OT- Coordination Assessment Upper Extremity Finger to Nose Test Within Functional Limits M9 OT- IP Assessment and Plan Start: 06/29/24 15:27 Freq: Status: Active Protocol: Document 06/30/24 11:43 [facility] (Rec: 06/30/24 11:49 [facility] [id number]) OT Summary Assessment and Plan Potential Rehabilitation Potential Excellent Analytic Complexity at Evaluation Low Summary OT Impairments Balance,Functional Mobility, Dressing,Bathing,Shower Transfers,Activity Tolerance Progress Towards Goals Progressing Toward Goals Assessment Summary Pt doing much better and looking to go home when medically stable. Pt would benefit from home health to look at environmental set-up and safety suggestions. Pt to go home with 24/7 assist and home health. Goals Self-Feeding Goal Independent Grooming Goal Independent Dressing Goal Independent Toileting Goal Independent Bathing Goal Standby Assistance Toilet Transfer Goal Independent Shower Transfer Goal Standby Assistance Days to Meet Goals 3 Treatment Plan OT Treatment Plan ADL Training,Functional Mobility,Patient/Family Education,Discharge Planning Discharge Recommendations OT Discharge Recommendations Home with 24/7 Assist Available,Home Health Home Equipment Needs BSC, shower chair, HHPS, bed rail Transportation Needs at Discharge Private Vehicle
[2024-06-30 11:15] LABS: Hemoglobin A1C% w Est Avg Glu 7.1 % (4.0-6.0)
[2024-06-30] MEDS: INSULIN LISPRO 100 UNIT/ML 3ML VIAL SUBCUT ×2 (11:47→17:25)
[2024-06-30] MEDS: ONDANSETRON 4 MG ODT PO (15:21)
--- NOTE | 2024-06-30 15:50 | CM.DPNOTE ---
DCP Note SHACTOR reviewed EMR. Per PT/OT, rec home with assistance/HH. Per hospitalist in morning rounds, potentially home tomorrow. pt previously denied [facility] resumption. unable to meet with pt today due to triaging needs. P: home Sat with family support, f/u about HH. if agreeable, send [facility] new referral. CM team will continue to follow as needed ERMA Ron
[2024-06-30] MEDS: cephALEXin 250 MG CAPSULE PO (17:24)
--- NOTE | 2024-06-30 17:47 | PM.DS.1 ---
History of Present Illness History of Present Illness Date Patient Seen: 06/30/24 Time Patient Seen: 17:48 Chief complaint: weakness, reynolds Narrative: 74 years old female with alcoholic cirrhosis currently on paracentesis every 2 weeks, diabetes mellitus type 2, COPD, current smoking, hypothyroidism presented to the ER with generalized weakness and difficulty ambulate. She had paracentesis on 06/26/2024 with 7-1/2 L fluids removed and 2 weeks prior had another paracentesis with 8 L removed. Denies any fever, chills but mild shortness of breath. Denies any nausea, vomiting, abdominal pain, diarrhea or dysuria. Laboratory shows WBC 7.8, hemoglobin 12.9, platelets 123, sodium 135, creatinine 1.8, blood sugar 231, lipase 120 and ammonia level 38. Urinalysis shows UTI. Chest x-ray was unremarkable. EKG unremarkable. She was given ceftriaxone 1 g IV and was decided to be admitted for further management. Discharge Providers Provider Date of admission: 06/29/24 04:26 Discharge Date: 06/30/24 Primary care physician: Rogers Iglesias DO Consults: 06/29/24 04:29 Consult to Discharge Planning Routine Comment: 06/29/24 14:13 Consult to Occupational Therapy Evaluate & Treat Comment: Physician Instructions: Evaluate and treat Consult to Physical Therapy Evaluate & Treat Comment: Physician Instructions: Evaluate and Treat Discharge provider: Rolanda Sr MD Summary Hospital Course Discharge Diagnosis: UTI -Blood culture and urine culture with no growth -Ceftriaxone for 2 days then changed to Keflex when urine culture showed no growth. Nonalcoholic cirrhosis/massive ascites with mildly elevated ammonia level. No signs of hepatic encephalopathy. -Lactulose, spironolactone and Lasix -patient declines paracentesis at this time. She has an appointment coming up in 12 days and prefers to wait. -she has told me several times that she blames the paracentesis for her leg weakness. I do not know of any logical connection. Diabetes mellitus, type II with long-term current use of insulin, uncontrolled with hyperglycemia, -A1c 7.1 -held oral diabetic medication during hospital stay -Lantus Hypothyroidism. Increased dose of levothyroxine. TSH 6.22. Generalized weakness. Most likely due to her general condition and comorbidities. -PT and OT evaluation COPD, active smoker. Stable. -Restart Spiriva and albuterol as needed -Nicotine patch Depression. Restart doxepin. Hospital Course: She came in with increased weakness and difficulty walking. She reported a recent paracentesis with 7.5 L out. UA was initially suspicious for UTI but urine culture is growing no bacteria. She has become stronger with IV antibiotic treatment. Pending the final culture report she will be continued on Keflex at home. She has announced today at 5:45 p.m. that she is going to go home tonight. Her is in the room and does not disagree with her. She also emphatically declines recommended paracentesis tonight or tomorrow and instead says she will wait till her scheduled appointment in 12 days. Her ascites has visibly worsened in just 3 days here so I do not think she will make it that far and I was henrry with her about that. She will likely return to the ED in the interval? She has nonalcoholic end-stage liver disease. She blames the paracentesis and/or the albumin infusion with each procedure for her leg weakness? I would not agree. Status at Discharge Cognitive/behavioral status at discharge: at baseline, oriented Functional status at discharge: uses cane/walker Overall status at discharge: patient is not back to baseline Exam Vital Signs (past 8 hours): Fraction of Inspired Oxygen 21 SaO2/FiO2 Ratio 461 Oxygen Delivery Method Room Air Oxygen Flow Rate 0 Narrative Exam Narrative: Alert and oriented x3. No apparent distress. Enlarging massive ascites. Heart is regular rate and rhythm without murmur Lungs have wheezes bilaterally Extremities have no ankle edema. Objective Labs 06/28/24 21:45 06/30/24 08:19 Labs: Laboratory Results - last 24 hr 06/30/24 08:19 Sodium 136 L Potassium 3.6 Chloride 102 Carbon Dioxide 31 BUN 25 H Creatinine 1.84 H Estimated GFR 29 L BUN/Creatinine Ratio 13.6 Glucose 99 Hemoglobin A1c 7.1 H Calcium 8.3 L Magnesium 2.2 Total Bilirubin 0.6 AST 55 H ALT 27 Alkaline Phosphatase 152 H Ammonia < 9 L Total Protein 6.0 L Albumin 3.1 L Globulin 2.9 Albumin/Globulin Ratio 1.1 [facility] Social History marital status: household members: spouse Smoking Status: Current every day smoker Tobacco: How many years used: 56 alcohol intake: never Discharge Plan Discharge Plan Patient Disposition: Home Provider Discharge Comment: Follow up with Dr. Iglesias in 1 week and return for your planned paracentesis Discharge orders & Medications Prescriptions: New levothyroxine [Synthroid] 175 mcg Tablet 175 mcg PO 0600 Qty: 30 0RF cephalexin 250 mg Capsule 250 mg PO QID Qty: 20 0RF Continued doxepin 10 mg capsule 10 mg PO ONCE PM albuterol sulfate [ProAir HFA] 90 mcg/actuation HFA aerosol inhaler 2 puff INHALATION DAILY PRN (Reason: Wheezing) Patient Comments: [NO ORIGINAL SIG] Spiriva Respimat 1.25 mcg/actuation mist 2 puff inhalation DAILY Janumet XR 50-1,000 mg tablet, ER multiphase 24 hr 1 tab PO DAILY insulin glargine [Lantus Solostar U-100 Insulin] 100 unit/mL (3 mL) insulin pen 50 unit SUBCUT ONCE HS Patient Comments: [NO ORIGINAL SIG] furosemide [Lasix] 40 mg tablet 40 mg PO BID Qty: 10 0RF (DME) blood-glucose meter [CareTouch Glucose Monitoring] Kit See Rx Instructions .Route Qty: 1 0RF Rx Instructions: As directed (DME) CareTouch Test Strip Strip See Rx Instructions .Route Qty: 50 0RF Rx Instructions: As directed pregabalin 50 mg capsule 50 mg PO DAILY Discontinued levothyroxine [Synthroid] 150 mcg tablet 150 mcg PO DAILY Follow up/Referrals: Rogers Iglesias DO [Primary Care Provider] - Diet/Activity/Treatments Diet: Regular Visit Report/Discharge Packet Stand Alone Forms: Patient Portal/API, Stroke Signs & Symptoms Discharge Data Primary Care Provider: Rogers Iglesias Attending Provider: Braulio Gutierrez Admit Date/Time: 06/29/24 04:26 Quality VTE Deep Vein Thrombosis/Pulmonary Embolism Present on Admission: No
--- NOTE | 2024-07-22 11:35 | PC.NURSE ---
Addendum entered by Nithin Guerrier R.N. 08/11/24 07:41: LATE ENTRY Correction: Ceftriaxone 1000mg infusion complete at 0549. Original Note: LATE ENTRY Ceftriaxone 1000mg infusion complete at 0510 06/30/24.
== END 2024-06-30 18:22 | disposition home or self-care (01) ==
LOC: ED 06-29 02:53 → AC 06-29 04:26
PROVIDERS: Family Medicine; Admitting Provider Internal Medicine; Emergency Provider Emergency Medicine; PCP Family Medicine; Referring Provider Emergency Medicine; Visit Provider Internal Medicine
DX: N39.0 Urinary tract infection, site not specified (principal); K74.60 Unspecified cirrhosis of liver; E11.65 Type 2 diabetes mellitus with hyperglycemia; Z79.4 Long term (current) use of insulin; E03.9 Hypothyroidism, unspecified; R53.1 Weakness; J44.9 Chronic obstructive pulmonary disease, unspecified; F17.200 Nicotine dependence, unspecified, uncomplicated; F32.A Depression, unspecified; K72.10 Chronic hepatic failure without coma; R18.8 Other ascites; Z79.84 Long term (current) use of oral hypoglycemic drugs
CPT/HCPCS: 36415; 71045; 80053; 80061; 81003; 81015; 82140; 82962; 83036; 83690; 83735; 84443; 85025; 87086; 93005; 93010; 94640; 96365; 96366; 97129; 97161; 97165; 97530; 97535; 99284; 99285; 99406; G0378; J0696; J1815; J7613

== ENCOUNTER → 2024-07-03 07:19 | Outpatient (CLI) | payer MEDICARE, OTHER, SELFPAY ==
[2024-06-29 05:20] VITALS: BMI 45.9
--- NOTE | 2024-07-03 | DI.US.S_ITS ---
PROCEDURE: US ABDOMEN LIMITED INDICATIONS: Other cirrhosis of liver TECHNIQUE: Real-time scanning was performed of the abdominal and retroperitoneal organs, with image documentation. COMPARISON: [facility], US, US ABDOMEN LIMITED, 06/13/2024, 14:09. [facility], US, US ABDOMEN LIMITED, 06/26/2024, 16:31. FINDINGS: Liver: Liver measures 19.5 cm maximum length with coarsened echotexture and nodular liver surface. No focal mass is seen. Hepatopetal flow seen in the main portal vein. Gallbladder: Status post cholecystectomy. Biliary ducts: Intrahepatic bile ducts are non-dilated. Extrahepatic bile duct caliber measures five mm. Normal is 6-7 mm or less in diameter, or 10 mm or less post-cholecystectomy. Pancreas: Visualized portions of the pancreas are sonographically normal. Miscellaneous: Small amount ascites is present. IMPRESSION: 1. Hepatic cirrhosis. No sonographic evidence of hepatocellular carcinoma. 2. Small volume of ascites. Approved by: Marco Chaudhry M.D. on 07/03/2024 at 15:29
== END ==
PROVIDERS: PCP Family Medicine; Referring Provider Internal Medicine; Visit Provider Internal Medicine
DX: K74.69 Other cirrhosis of liver (principal); Z90.49 Acquired absence of other specified parts of digestive tract
CPT/HCPCS: 76705

== ENCOUNTER 2024-07-12 11:23 | Outpatient (CLI) | payer MEDICARE, OTHER, SELFPAY ==
[2024-06-29 05:20] VITALS: BMI 45.9
[2024-07-12] VITALS (8 sets, daily range): BP systolic 121–161; BP diastolic 60–72; PULSE 85–89; RESP 16–20; TEMP 36–36.4; O2SAT 91–96
--- NOTE | 2024-07-12 11:26 | DI.US.S_ITS ---
PROCEDURE: US PARACENTESIS W/ALBUMIN INDICATIONS: ASCITES / CIRRHOSIS OF LIVER TECHNIQUE: The indications, alternatives, benefits, risks, and complications of the procedure were explained to the patient. Written informed consent was obtained and placed in the chart. The abdomen and pelvis were examined sonographically, and an appropriate site was chosen for paracentesis. The skin was prepared and draped in the usual sterile fashion, and 1% lidocaine was infiltrated from the skin down through the peritoneal surface. A 19-gauge catheter-covered needle was then introduced into the peritoneal space, the catheter was advanced and the needle was withdrawn, and thereafter peritoneal fluid was withdrawn. The catheter was then removed and a dressing was applied. The fluid was discarded as the clinician did not order diagnostic testing of the fluid. COMPARISON: None. FINDINGS: Access site: Left mid abdomen Needle: One-Step centesis catheter with introducer needle. Fluid volume and description: 09641 cc Fluid sent for diagnostic testing: None Medications: 1% lidocaine for local anaesthesia. Complications: None. IMPRESSION: Successful ultrasound-guided paracentesis. Dictated by: Bora Johnson M.D. on 07/12/2024 at 16:47 Approved by: Bora Johnson M.D. on 07/12/2024 at 16:56
[2024-07-12] MEDS: ALBUMIN HUMAN 25 GM/100 ML VIAL IV (12:28)
== END 2024-07-12 13:31 | disposition home or self-care (01) ==
PROVIDERS: PCP Family Medicine; Referring Provider Internal Medicine; Visit Provider Internal Medicine
DX: K74.69 Other cirrhosis of liver (principal); R18.8 Other ascites
CPT/HCPCS: 49083; 96365; P9041

== ENCOUNTER 2024-07-26 07:21 | Outpatient (CLI) | payer MEDICARE, OTHER, SELFPAY ==
[2024-06-29 05:20] VITALS: BMI 45.9
[2024-07-26] VITALS (8 sets, daily range): BP systolic 116–130; BP diastolic 56–59; PULSE 76–81; RESP 18–20; TEMP 36.1–36.4; O2SAT 90–96
--- NOTE | 2024-07-26 07:24 | DI.US.S_ITS ---
PROCEDURE: US PARACENTESIS W/ALBUMIN INDICATIONS: ASCITES/CIRRHOSIS OF LIVER TECHNIQUE: The indications, alternatives, benefits, risks, and complications of the procedure were explained to the patient. Written informed consent was obtained and placed in the chart. The abdomen and pelvis were examined sonographically, and an appropriate site was chosen for paracentesis. The skin was prepared and draped in the usual sterile fashion, and 1% lidocaine was infiltrated from the skin down through the peritoneal surface. A 19-gauge catheter-covered needle was then introduced into the peritoneal space, the catheter was advanced and the needle was withdrawn, and thereafter peritoneal fluid was withdrawn. The catheter was then removed and a dressing was applied. The fluid was discarded if the clinician did not order diagnostic testing of the fluid. An albumin infusion was provided given the large volume paracentesis. COMPARISON: [facility], PARACENTESIS W/ALBUMIN, 07/12/2024, 11:40. FINDINGS: Access site: Left lower quadrant , just superior to the abdominal striae and superficial venous collaterals Needle: One-Step centesis catheter with introducer needle. Fluid volume and description: 12.3 L of clear, pink fluid Fluid sent for diagnostic testing: No Medications: 1% lidocaine for local anaesthesia. Complications: None. IMPRESSION: Successful ultrasound-guided paracentesis. Dictated by: Juan C Farrell M.D. on 07/26/2024 at 10:43 Approved by: Juan C Farrell M.D. on 07/26/2024 at 10:45
[2024-07-26] MEDS: ALBUMIN HUMAN 25 GM/100 ML VIAL IV (08:05)
== END 2024-07-26 09:52 | disposition home or self-care (01) ==
PROVIDERS: PCP Family Medicine; Referring Provider Internal Medicine; Visit Provider Internal Medicine
DX: K74.69 Other cirrhosis of liver (principal); R18.8 Other ascites
CPT/HCPCS: 49083; 96365; P9041

== ENCOUNTER 2024-08-09 11:58 | Outpatient (CLI) | payer MEDICARE, OTHER, SELFPAY ==
[2024-06-29 05:20] VITALS: BMI 45.9
[2024-08-09] VITALS (7 sets, daily range): BP systolic 119–139; BP diastolic 53–79; PULSE 79–89; RESP 14–16; TEMP 36.6; O2SAT 93–100
--- NOTE | 2024-08-09 11:59 | DI.US.S_ITS ---
PROCEDURE: US PARACENTESIS W/ALBUMIN INDICATIONS: ASCITES/CIRRHOSIS OF LIVER TECHNIQUE: The indications, alternatives, benefits, risks, and complications of the procedure were explained to the patient. Written informed consent was obtained and placed in the chart. The abdomen and pelvis were examined sonographically, and an appropriate site was chosen for paracentesis. The skin was prepared and draped in the usual sterile fashion, and 1% lidocaine was infiltrated from the skin down through the peritoneal surface. A 19-gauge catheter-covered needle was then introduced into the peritoneal space, the catheter was advanced and the needle was withdrawn, and thereafter peritoneal fluid was withdrawn. The catheter was then removed and a dressing was applied. The fluid was discarded if the clinician did not order diagnostic testing of the fluid. COMPARISON: [facility], PARACENTESIS W/ALBUMIN, 07/26/2024, 7:56. FINDINGS: Access site: Left quadrant Needle: One-Step centesis catheter with introducer needle. Tangental approach was utilized. Fluid volume and description: 38620 cc straw-colored ascites. Fluid sent for diagnostic testing: None. Medications: 1% lidocaine for local anaesthesia. The patient was given albumin postprocedural. Complications: No bleeding. There is leakage of ascites fluid at the skin despite pressure. Glue was placed at the site of leakage as well as gauze and Tegaderm. Of note, there is a skin the dryness and irritation at the left lower quadrant at the presumed site of prior paracentesis and Tegaderm dressing. IMPRESSION: Successful ultrasound-guided left paracentesis. 11.5 L removed. Dictated by: Daniel Sharma M.D. on 08/09/2024 at 16:31 Approved by: Daniel Sharma M.D. on 08/09/2024 at 16:37
[2024-08-09 13:05] LABS: Hematocrit 41.8 % (36-46); Hemoglobin 13.8 g/dL (12.0-16.0); Mean Corpuscular HGB Conc 32.9 % (30-36); Mean Corpuscular Hemoglobin 29.6 PG (26-34); Mean Corpuscular Volume 89.8 fL (80-100); Platelet Count 128 X10^3/uL (150-400); Red Blood Cell Count 4.65 X10^6/uL (4.0-5.2); Red Cell Distribution Width 18.1 % (11.6-14.8); White Blood Cell Count 8.4 X10^3/uL (4.5-11.0)
[2024-08-09 13:13] LABS: Prothrombin Time 11.7 SECONDS (9.4-12.5)
[2024-08-09] MEDS: ALBUMIN HUMAN 25 GM/100 ML VIAL IV (13:35)
== END 2024-08-09 16:00 | disposition home or self-care (01) ==
PROVIDERS: Radiology Diagnostic Radiology; PCP Family Medicine; Referring Provider Internal Medicine; Visit Provider Internal Medicine
DX: J44.9 Chronic obstructive pulmonary disease, unspecified (principal); R53.1 Weakness; K74.69 Other cirrhosis of liver; R18.8 Other ascites
CPT/HCPCS: 49083; 85027; 85610; 96365; P9041

== ENCOUNTER 2024-08-23 11:52 | Outpatient (CLI) | payer MEDICARE, OTHER, SELFPAY ==
[2024-06-29 05:20] VITALS: BMI 45.9
[2024-08-23] VITALS (8 sets, daily range): BP systolic 127–151; BP diastolic 59–67; PULSE 76–93; RESP 18; TEMP 36.4–36.7; O2SAT 93–97
--- NOTE | 2024-08-23 11:54 | DI.US.S_ITS ---
PROCEDURE: US PARACENTESIS W/ALBUMIN INDICATIONS: ASCITES/CIRRHOSIS OF LIVER TECHNIQUE: The indications, alternatives, benefits, risks, and complications of the procedure were explained to the patient. Written informed consent was obtained and placed in the chart. The abdomen and pelvis were examined sonographically, and an appropriate site was chosen for paracentesis. The skin was prepared and draped in the usual sterile fashion, and 1% lidocaine was infiltrated from the skin down through the peritoneal surface. A 19-gauge catheter-covered needle was then introduced into the peritoneal space, the catheter was advanced and the needle was withdrawn, and thereafter peritoneal fluid was withdrawn. The catheter was then removed and a dressing was applied. The fluid was discarded if the clinician did not order diagnostic testing of the fluid. COMPARISON: [facility], , PARACENTESIS W/ALBUMIN, 08/09/2024, 13:07. FINDINGS: Access site: Left lower quadrant Needle: One-Step centesis catheter with introducer needle. Fluid volume and description: 13 liters chylous fluid Fluid sent for diagnostic testing: None Medications: 1% lidocaine for local anaesthesia. Complications: None. IMPRESSION: Successful ultrasound-guided paracentesis. Dictated by: Albin Daniels M.D. on 08/23/2024 at 16:08 Approved by: Albin Daniels M.D. on 08/23/2024 at 16:08
[2024-08-23] MEDS: ALBUMIN HUMAN 25 GM/100 ML VIAL IV (13:27)
== END 2024-08-23 15:05 | disposition home or self-care (01) ==
PROVIDERS: PCP Family Medicine; Referring Provider Internal Medicine; Visit Provider Internal Medicine
DX: R18.8 Other ascites (principal); K74.69 Other cirrhosis of liver
CPT/HCPCS: 49083; 96365; P9041

== ENCOUNTER 2024-09-09 08:08 | Inpatient (IN) | payer MEDICARE, OTHER, SELFPAY ==
[2024-06-29 05:20] VITALS: BMI 45.9
[2024-09-09] VITALS (46 sets, daily range): BP systolic 98–151; BP diastolic 50–78; PULSE 65–87; RESP 4–24; TEMP 36.2–36.6; O2SAT 84–100; BMI 53.6
--- NOTE | 2024-09-09 | DI.RAD.S_ITS ---
PROCEDURE: XR KNEE LT 4V INDICATIONS: DISTAL FEMUR FRACTURE TECHNIQUE: Fluoroscopic images were obtained during a procedure and submitted for interpretation following the completion of the procedure. COMPARISON: [facility], CR, XR KNEE LT 1TO2V, 09/09/2024, 8:40. [facility], CR, XR FEMUR LT MIN 2V, 09/09/2024, 8:54. FINDINGS: These fluoroscopic images were performed for intraoperative localization. On these images, plate and screw fixation can be seen involving the distal lateral femur, with improved anatomic alignment. Please correlate with intraoperative findings. IMPRESSION: Normal intraoperative examination. Dictated by: Mario Mathis M.D. on 09/09/2024 at 17:00 Approved by: Mario Mathis M.D. on 09/09/2024 at 17:00
--- NOTE | 2024-09-09 08:17 | DI.RAD.S_ITS ---
PROCEDURE: XR KNEE LT 1TO2V INDICATIONS: Left knee/hip pain, fall TECHNIQUE: 2 views of the knee were acquired. COMPARISON: None. FINDINGS: Bones: There is a comminuted, moderately displaced distal femur fracture. Intra-articular involvement is suspected, yet not well seen. Soft tissues: Associated soft tissue swelling is seen. IMPRESSION: Comminuted, moderately displaced distal femur fracture. There is intra-articular involvement suspected, although not well seen on these plain films. Dictated by: Mario Mathis M.D. on 09/09/2024 at 8:38 Approved by: Mario Mathis M.D. on 09/09/2024 at 8:39
--- NOTE | 2024-09-09 08:17 | DI.RAD.S_ITS ---
PROCEDURE: XR HIP W PEL IF DONE LT 2V INDICATIONS: Left knee/hip pain, fall TECHNIQUE: AP pelvis with lateral view(s) of the left hip(s). COMPARISON: [facility], CR, XR FEMUR LT MIN 2V, 09/09/2024, 8:54. [facility], CR, XR CHEST 1V, 09/09/2024, 8:40. [facility], CR, XR KNEE LT 1TO2V, 09/09/2024, 8:40. FINDINGS: Status Bones: No fractures or dislocations. Pelvic ring appears intact. No suspicious bony lesions. Soft tissues: The visualized bowel gas pattern is normal. No suspicious soft tissue calcifications. IMPRESSION: No displaced fracture seen on these plain film images, although evaluation is highly limited by body habitus. If there is point tenderness (or other clinical suspicion for a fracture not seen on these images) then a dedicated CT could be considered for further evaluation, if clinically appropriate. Dictated by: Mario Mathis M.D. on 09/09/2024 at 8:37 Approved by: Mario Mathis M.D. on 09/09/2024 at 8:38
--- NOTE | 2024-09-09 08:17 | DI.RAD.S_ITS ---
PROCEDURE: XR CHEST 1V INDICATIONS: Left knee/hip pain, fall TECHNIQUE: One view of the chest was acquired. COMPARISON: [facility], , CHEST 2 VIEW, 07/21/2016, 13:23. [facility], CR, XR CHEST 1V, 08/14/2023, 14:47. [facility], CR, XR CHEST 1V, 06/29/2024, 3:20. FINDINGS: Surgical changes and devices: None. Lungs and pleura: On this supine examination, no large pneumothorax or large pleural effusions are seen. No focal areas of lung consolidation are seen. Mild generalized interstitial prominence can be seen. Low lung volumes are noted. This causes a crowded appearance to the lung markings and limits evaluation. Mediastinum: Mediastinal contours appear normal. Heart size is mildly enlarged. Bones and chest wall: No suspicious bony lesions. Age-appropriate bony degenerative changes are seen. Overlying soft tissues appear unremarkable. IMPRESSION: Mild cardiomegaly and mild interstitial prominence. Early CHF is suspected, although differential diagnosis includes artifact in this patient with low lung volumes. If clinically appropriate, a short-term followup chest series (with PA and lateral views) performed in deep inspiration is suggested for further evaluation. Dictated by: Mario Mathis M.D. on 09/09/2024 at 8:18 Approved by: Mario Mathis M.D. on 09/09/2024 at 8:19
--- NOTE | 2024-09-09 08:19 | ED.FALL ---
HPI - Fall General Chief Complaint: Fall Stated Complaint: Fall Time Seen by Provider: 09/09/24 08:09 Source: patient, EMS, RN notes reviewed and old records reviewed Mode of arrival: EMS Limitations: no limitations History of Present Illness HPI Narrative: 74-year-old female history of nonalcoholic cirrhosis with the ascites frequent paracentesis most recently on 08/23/2024, hypothyroidism, diabetes patient presents with complaint of mechanical ground level fall. Patient states she tripped and fell hit her back but also landed with her leg bent. She complains of pain in her left knee. Denies any other pain or injuries. States she did not hit her head, no neck pain, denies any back pain, no chest pain or shortness of breath. Notes her abdomen is distended states her last paracentesis was in the last month. Denies any new GI or urinary symptoms. Denies any numbness tingling or weakness. States her legs has been swollen. Notes she has not been taking her medications for the last several days she states she has been forgetful. She does live with her but states she manages her medications. She denies allergy medications but states she has been told by her physician she was not supposed to have pain medicine secondary to cirrhosis. Does use tobacco daily, denies any alcohol, no recreational drugs. States Dr. Rogers Iglesias is her primary care physician. Related Data Home Medications Medication Instructions Recorded Confirmed albuterol sulfate 90 mcg/actuation 2 puff inhalation DAILY PRN 07/07/23 09/09/24 aerosol inhaler (ProAir HFA) Wheezing tiotropium bromide 1.25 2 puff inhalation DAILY 07/07/23 09/09/24 mcg/actuation mist for inhalation (Spiriva Respimat) insulin glargine 100 unit/mL (3 60 unit SUBCUT ONCE HS 06/29/24 09/09/24 mL) subcutaneous pen (Lantus Solostar U-100 Insulin) doxepin 10 mg capsule 20 mg PO ONCE PM 09/04/24 09/09/24 empagliflozin 10 mg tablet 10 mg PO DAILY 09/04/24 09/09/24 (Jardiance) pregabalin 50 mg capsule 100 mg PO DAILY 09/04/24 09/09/24 sitagliptin phosphate 50 mg tablet 50 mg PO DAILY 09/09/24 09/09/24 (Januvia) Previous Rx's Medication Instructions Recorded furosemide 40 mg tablet (Lasix) 40 mg PO BID #10 tabs 08/14/23 blood sugar diagnostic (CareTouch #50 ea 12/02/23 Test Strip) blood-glucose meter (CareTouch #1 ea 12/02/23 Glucose Monitoring System kit) levothyroxine 175 mcg tablet 175 mcg PO 0600 #30 tabs 06/30/24 (Synthroid) Allergies Allergy/AdvReac Type Severity Reaction Status Date / Time No Known Drug Allergies Allergy Verified 09/04/24 15:53 Review of Systems Review of Systems ROS Unobtainable: All systems reviewed & are unremarkable except as noted in HPI and below Patient History Medical History Hypertension Hypothyroidism ESRD (end stage renal disease) Depressive disorder Diabetes Social History marital status: household members: spouse Smoking Status: Current every day smoker Tobacco: How many years used: 56 alcohol intake: never Smoking Status: Current every day smoker tobacco type: cigarettes and vaping alcohol intake frequency: other Exam Narrative Exam Narrative: GEN: Patient appears in mild distress. HEAD: No evidence of trauma, no raccoon/Alvarez sign. NECK: Nontender, painless range of motion, trachea midline Negative Nexus criteria, no midline line tenderness, distracting injury, altered mental status, neuro deficit, recent EtOH. EYES: PERRLA, EOMI ENT: External inspection normal, trachea is midline, TM's are normal no hemotypanum, Nares are clear, no septal hematoma, no dental or oral injury, airway is normal and with normal occlusion, No bony tenderness RESP: Chest is nontender and has symmetric movement, no ecchymosis, breath sounds are normal no crackles, wheezes or rales CVS: Heart sounds are normal, no murmur noted, No JVD. ABG/GI: Nontender, soft, normal bowel sounds, no distention, no organomegaly, pelvic rock is negative NEURO: Oriented AOx3, neuro is grossly intact, sensation and motor is normal all 4 extremities moving, cranial nerves II through XII are intact, GCS is 15 PSYCH: Normal mood and affect SKIN: Intact, warm and dry, no crepitus and without decubitus BACK: No CVA tenderness, no vertebral tenderness, no step-off's, no crepitus EXT: Patient has her left knee bent she appears to be little bit internally rotated and shortened but is painful to try to attempt to straighten. No tenderness over the hip, femur but some tenderness over the knee and proximal tib-fib. Patient does not have any ankle or foot tenderness in the left. She was bilateral lower extremity edema. No ecchymosis. No skin tears or skin changes noted., hips are nontender, no pedal edema, normal color and temperature, patient moves right lower extremity as well as bilateral upper extremities normally. Initial Vital Signs Initial Vital Signs: Vital Signs Temperature 97.3 F L 09/09/24 08:14 Pulse Rate 79 09/09/24 08:14 Respiratory Rate 18 09/09/24 08:14 Blood Pressure 143/69 H 09/09/24 08:14 Pulse Oximetry 93 09/09/24 08:14 Oxygen Delivery Method Room Air 09/09/24 08:14 Course Orders Ordered: ED Orders 09/09/24 08:17 Chest [XR chest 1V] Stat XR hip w pel if done LT 2V Stat XR knee LT 1to2V Stat 09/09/24 08:25 Ammonia (NH3) Stat CBC Auto Diff [Complete Blood Count AUTO DIFF] Stat CMP [Comprehensive Metabolic Panel] Stat Ketones (Beta-Hydroxybutyrate) Stat Lipase Stat Prothrombin Time INR Stat 09/09/24 08:54 XR femur LT min 2V Stat 09/09/24 09:30 Urinalysis and Microscopic Stat Urine Culture Stat 09/09/24 11:14 EKG-12 Lead Stat 09/10/24 05:00 Basic Metabolic Panel Routine Complete Blood Count AUTO DIFF Routine Hydromorphone HCl (Hydromorphone 0.5 Mg Inj) 0.5 mg IV Q1H PRN PRN Reason: Pain, Severe (7-10) Dextrose (D10w) 100 mls @ 999 mls/hr IV PRN PRN PRN Reason: Hypoglycemia Insulin Human Lispro (Insulin Lispro 100 Unit/Ml 3ml Vial) 0 unit SUBCUT ACHS ELIAN; Protocol Naloxone HCl (Naloxone 0.4 Mg/Ml Vial) 0.2 mg IV Q2MIN PRN PRN Reason: Opiate Reversal Discontinued Medications Hydromorphone HCl (Hydromorphone 0.5 Mg Inj) 0.5 mg IV NOW ONE Stop: 09/09/24 08:35 Last Admin: 09/09/24 08:48 Dose: 0.5 mg Documented By: FRANCES Lactulose (Lactulose 20 Gm/30 Ml Solution) 20 gm PO NOW ONE Stop: 09/09/24 09:02 Vital Signs Vital signs: Vital Signs - 8 hr 09/09/24 08:14 09/09/24 08:18 09/09/24 08:20 Temperature 97.3 F L Pulse Rate 79 80 79 Respiratory Rate 18 Blood Pressure 143/69 H Pulse Oximetry 93 96 95 Oxygen Delivery Method Room Air Oxygen Flow Rate 09/09/24 08:20 09/09/24 08:30 09/09/24 08:36 Temperature Pulse Rate 78 Respiratory Rate 18 Blood Pressure 117/59 L 121/58 L Pulse Oximetry 94 Oxygen Delivery Method Room Air Oxygen Flow Rate 09/09/24 08:36 09/09/24 09:00 09/09/24 09:05 Temperature Pulse Rate 80 85 83 Respiratory Rate 18 18 Blood Pressure 129/68 Pulse Oximetry 94 89 L 95 Oxygen Delivery Method Room Air Nasal Cannula Oxygen Flow Rate 2 09/09/24 09:30 09/09/24 09:45 09/09/24 09:45 Temperature 98 F Pulse Rate 84 85 Respiratory Rate 18 16 Blood Pressure 129/62 117/64 Pulse Oximetry 95 92 Oxygen Delivery Method Nasal Cannula Oxygen Flow Rate 2 09/09/24 10:00 09/09/24 10:00 09/09/24 10:30 Temperature Pulse Rate 82 82 Respiratory Rate 12 10 L Blood Pressure 128/73 Pulse Oximetry 95 94 Oxygen Delivery Method Oxygen Flow Rate 09/09/24 10:30 09/09/24 11:00 09/09/24 11:01 Temperature Pulse Rate 82 Respiratory Rate 12 Blood Pressure 137/58 L 112/59 L Pulse Oximetry 96 Oxygen Delivery Method Oxygen Flow Rate 09/09/24 11:01 Temperature Pulse Rate 82 Respiratory Rate 12 Blood Pressure Pulse Oximetry 95 Oxygen Delivery Method Oxygen Flow Rate MDM - Fall Lab Data 09/09/24 08:25 09/09/24 08:25 Labs: Lab Results 09/09/24 09/09/24 Range/Units 08:25 09:30 WBC 9.9 (4.5-11.0) X10^3/uL RBC 4.52 (4.0-5.2) X10^6/uL Hgb 13.5 (12.0-16.0) g/dL Hct 40.6 (36-46) % MCV 89.8 (80-100) fL MCH 30.0 (26-34) PG MCHC 33.4 (30-36) % RDW 17.0 H (11.6-14.8) % Plt Count 105 L (150-400) X10^3/uL Neut % (Auto) 80.9 H (50-75) % Lymph % (Auto) 9.4 L (25-40) % [place] % (Auto) 6.5 (3-14) % Eos % (Auto) 2.2 (2-4) % Baso % (Auto) 1.0 (0-2) % Neut # (Auto) 8100 H (4989-1408) /uL Lymph # (Auto) 900 L (3825-9192) /uL [place] # (Auto) 600 (0-900) /uL Eos # (Auto) 200 (0-450) /uL Baso # (Auto) 100 (0-100) /uL PT 11.8 (9.4-12.5) SECONDS INR 1.0 (0.9-1.3) Sodium 129 L (137-145) mmol/L Potassium 4.8 (3.4-5.1) mmol/L Chloride 101 (98-107) mmol/L Carbon Dioxide 22 (22-32) mmol/L BUN 39 H (7-17) mg/dL Creatinine 1.86 H (0.52-1.04) mg/dL Estimated GFR 28 L (>60) mL/min BUN/Creatinine Ratio 21.0 (6-22) Glucose 304 H (80-110) mg/dL Calcium 8.2 L (8.4-10.2) mg/dL Total Bilirubin 0.8 (0.2-1.3) mg/dL AST 35 (14-36) IU/L ALT 28 (<35) IU/L Alkaline Phosphatase 148 H (38-126) U/L Ammonia 50 H (9-30) umol/L Total Protein 6.2 L (6.3-8.2) g/dL Albumin 2.9 L (3.5-5.0) g/dL Globulin 3.3 (1.7-4.1) g/dL Albumin/Globulin Ratio 0.9 L (1.0-2.8) Lipase 147 (23-300) U/L Urine Color [place] Urine Appearance Cloudy Urine pH 5.5 (4.5-8.0) Ur Specific [place] >=1.030 H (1.000-1.035) Urine Protein Trace H (Negative) Urine Glucose (UA) Negative (Negative) g/dL Urine Ketones Negative (NEGATIVE) Urine Occult Blood 1+ H (Negative) Urine Nitrate Positive H (Negative) Urine Bilirubin Negative (NEGATIVE) Urine Urobilinogen 0.2 (0.2) E.U./dL Ur Leukocyte Esterase Trace H (NEGATIVE) Urine RBC 0-1/hpf (0-5/HPF) Urine WBC 10-30/hpf H (0-5/HPF) Ur Squamous Epith Cells 0-1 /hpf (0-5/HPF) Urine Bacteria Moderate (10-30) H (None) Urine Yeast >100/hpf (None) Ur Culture Indicated? Specimen cultured Vol Urine Centrifuged 10ml (spun) Ketones < 0.02 (<0.27) mmol/L Point of Care Testing Glucose POC 318 MDM Narrative Medical decision making narrative: 74-year-old female history of cirrhosis with frequent paracentesis presents with complaint of bone chronicled ground level fall. Has pain in the right knee area has pain with movement of her lower extremity we will obtain labs as she states she has been more forgetful so she was not been taking her medications recently including CBC, CMP, lipase and ammonia. Hip and knee x-rays were obtained I as well as chest x-ray. Patient is not on any anticoagulants denies hitting her head. Labs show normal white count hemoglobin and platelets of 105 patient has been thrombocytopenic in June and July of this year she was slightly lower than before. Sodium is 129 this is lower than June when she was 136. When corrected for hyperglycemia sodium is 132. Creatinine is 1.86 appears consistent with Bianca labs BUN 39 with otherwise appropriate electrolytes glucose is 304, alk-phos is 148 ammonia is elevated at 50, lipase is 147. Ketones are less than 0.02. Spoke with Dr. Geneva Card, orthopedic surgery at 1034, we will review images for final decision but likely keep locally with admit to medicine. Dr. Card saw patient here in the department. Spoke with Dr. Woodard, hospitalist who accepts for admission. We will obtain EKG for medical clearance. Discharge Plan Departure Patient Disposition: Admitted As Inpatient Clinical Impression: Femoral distal fracture, Hyperammonemia Prescriptions: No Action Jardiance 10 mg tablet 10 mg PO DAILY albuterol sulfate [ProAir HFA] 90 mcg/actuation HFA aerosol inhaler 2 puff INHALATION DAILY PRN (Reason: Wheezing) Patient Comments: [NO ORIGINAL SIG] Spiriva Respimat 1.25 mcg/actuation mist 2 puff inhalation DAILY doxepin 10 mg capsule 20 mg PO ONCE PM insulin glargine [Lantus Solostar U-100 Insulin] 100 unit/mL (3 mL) insulin pen 60 unit SUBCUT ONCE HS Patient Comments: [NO ORIGINAL SIG] levothyroxine [Synthroid] 175 mcg Tablet 175 mcg PO 0600 Qty: 30 0RF Januvia 50 mg tablet 50 mg PO DAILY furosemide [Lasix] 40 mg tablet 40 mg PO BID Qty: 10 0RF Patient Comments: unsure of dose or if still taking this med (DME) blood-glucose meter [CareTouch Glucose Monitoring] Kit See Rx Instructions .Route Qty: 1 0RF Rx Instructions: As directed (DME) CareTouch Test Strip Strip See Rx Instructions .Route Qty: 50 0RF Rx Instructions: As directed pregabalin 50 mg capsule 100 mg PO DAILY Referrals: Rogers Iglesias DO [Primary Care Provider] -
[2024-09-09 08:41] LABS: Add Manual Diff / Slide Review NO; Basophils Absolute Auto 100 /uL (0-100); Eosinophils Absolute Auto 200 /uL (0-450); Eosinophils Percent Auto 2.2 % (2-4); Hematocrit 40.6 % (36-46); Hemoglobin 13.5 g/dL (12.0-16.0); Lymphocytes Absolute Auto 900 /uL (1100-4500); Lymphocytes Percent Auto 9.4 % (25-40); Mean Corpuscular HGB Conc 33.4 % (30-36); Mean Corpuscular Volume 89.8 fL (80-100); Monocytes Absolute Auto 600 /uL (0-900); Monocytes Percent Auto 6.5 % (3-14); Neutrophils Absolute Auto 8100 /uL (1500-7000); Neutrophils Percent Auto 80.9 % (50-75); Platelet Count 105 X10^3/uL (150-400); Red Blood Cell Count 4.52 X10^6/uL (4.0-5.2); White Blood Cell Count 9.9 X10^3/uL (4.5-11.0)
--- NOTE | 2024-09-09 08:45 | PC.NURSE ---
LLE painful -rotated/deformity-unable to assess ROM due to pain; CMS intact L dorsalis pedis pulse 2+ sensation intact and at baseline.
[2024-09-09] MEDS: HYDROMORPHONE 0.5 MG INJ IV ×2 (08:48→12:16)
[2024-09-09 08:50] LABS: Ammonia (NH3) 50 umol/L (9-30)
[2024-09-09 08:51] LABS: Alanine Aminotransferase 28 IU/L (<35); Albumin 2.9 g/dL (3.5-5.0); Albumin Globulin Ratio 0.9 (1.0-2.8); Alkaline Phosphatase 148 U/L (38-126); Aspartate Aminotransferase 35 IU/L (14-36); Bilirubin Total 0.8 mg/dL (0.2-1.3); Blood Urea Nitrogen 39 mg/dL (7-17); Calcium 8.2 mg/dL (8.4-10.2); Carbon Dioxide 22 mmol/L (22-32); Chloride 101 mmol/L (98-107); Estimated Glomerular Filt Rate 28 mL/min (>60); Globulin 3.3 g/dL (1.7-4.1); Glucose 304 mg/dL (80-110); HEMOLYSIS < 15 (0-50); Lipase 147 U/L (23-300); Potassium 4.8 mmol/L (3.4-5.1); Sodium 129 mmol/L (137-145); Total Protein 6.2 g/dL (6.3-8.2)
--- NOTE | 2024-09-09 08:54 | DI.RAD.S_ITS ---
PROCEDURE: XR FEMUR LT MIN 2V INDICATIONS: femur fx TECHNIQUE: 2 views of the femur were acquired. COMPARISON: [facility], CR, XR CHEST 1V, 09/09/2024, 8:40. [facility], CR, XR HIP W PEL IF DONE LT 2V, 09/09/2024, 8:40. FINDINGS: Bones: There is a moderately displaced, mildly comminuted fracture of the distal femur. No fracture lines are primarily through the metaphysis, with suspicion for intra-articular involvement, although this is not well seen. Soft tissues: Associated soft tissue swelling is seen. This study is limited by body habitus. IMPRESSION: Distal femur fracture, with suspicion for intra-articular involvement. Dictated by: Mario Mathis M.D. on 09/09/2024 at 8:19 Approved by: Mario Mathis M.D. on 09/09/2024 at 8:20
[2024-09-09 08:57] LABS: Ketones (Beta-Hydroxybutyrate) < 0.02 mmol/L (<0.27)
[2024-09-09 09:45] LABS: Bilirubin Urine UA NEGATIVE (NEGATIVE); Glucose Urine UA NEGATIVE (Negative); Ketones Urine UA NEGATIVE (NEGATIVE); Leukocyte Esterase Urine UA TRACE (NEGATIVE); Nitrite Urine UA POSITIVE (Negative); Occult Blood Urine UA 1+ (Negative); Protein Urine UA TRACE (Negative); Specific Gravity Urine UA >=1.030 (1.000-1.035); Urobilinogen Urine UA 0.2 E.U./dL (0.2)
[2024-09-09 09:58] LABS: Appearance Urine UA CLOUDY; Color Urine UA ORANGE; pH Urine UA 5.5 (4.5-8.0)
[2024-09-09 10:18] LABS: RBC Urine 0-1/HPF (0-5/HPF); Squamous Epithelial Cell Urine 0-1 /HPF (0-5/HPF); Urine Volume 10mL (spun); WBC Urine 10-30/HPF (0-5/HPF)
[2024-09-09 10:19] LABS: Bacteria Urine Moderate (10-30); Culture Indicated Urine Specimen Cultured
--- NOTE | 2024-09-09 10:21 | PC.NURSE ---
Patients - Jose Martin Reports Patient is Scheduled for Surgery Wednesday09/13/[address] [place] [address] for an abdominal port placement to allow drainage of abdomen at home along with tap/parecentisis of abdomen that day here @ [facility]. Scheduled for surgery with Dr Loomis.
[2024-09-09 11:33] LABS: Prothrombin Time 11.8 SECONDS (9.4-12.5)
--- NOTE | 2024-09-09 12:08 | PM.HP.1 ---
History of Present Illness History of Present Illness Date Patient Seen: 09/09/24 Time Patient Seen: 11:10 Date of Onset of Symptoms: 09/09/24 Chief complaint: Fall Narrative: This is a 74-year-old female with multiple medical problems including chronic liver failure who requires paracentesis about every 2 weeks. She is scheduled for a surgery with Dr. Loomis on 09/13/2024 in order to install a port. She was at home with her she is a household ambulator. She got up and she tripped and fell noted the acute onset of severe left knee pain. She came to the emergency room for evaluation. Her past medical history is significant for nonalcoholic cirrhosis and chronic liver failure, diabetes, chronic renal failure. She did not have knee problems prior to the fall. [facility] Medical History Hypertension Hypothyroidism ESRD (end stage renal disease) Depressive disorder Diabetes Social History marital status: household members: spouse Smoking Status: Current every day smoker Tobacco: How many years used: 56 alcohol intake: never Meds Home Medications and Allergies Home Medications Medication Instructions Recorded Confirmed Type albuterol sulfate 90 mcg/actuation 2 puff inhalation DAILY PRN 07/07/23 09/09/24 History aerosol inhaler (ProAir HFA) Wheezing tiotropium bromide 1.25 2 puff inhalation DAILY 07/07/23 09/09/24 History mcg/actuation mist for inhalation (Spiriva Respimat) furosemide 40 mg tablet (Lasix) 40 mg PO BID #10 tabs 08/14/23 09/09/24 Rx blood sugar diagnostic (CareTouch #50 ea 12/02/23 09/09/24 Rx Test Strip) blood-glucose meter (CareTouch #1 ea 12/02/23 09/09/24 Rx Glucose Monitoring System kit) insulin glargine 100 unit/mL (3 60 unit SUBCUT ONCE HS 06/29/24 09/09/24 History mL) subcutaneous pen (Lantus Solostar U-100 Insulin) levothyroxine 175 mcg tablet 175 mcg PO 0600 #30 tabs 06/30/24 09/09/24 Rx (Synthroid) doxepin 10 mg capsule 20 mg PO ONCE PM 09/04/24 09/09/24 History empagliflozin 10 mg tablet 10 mg PO DAILY 09/04/24 09/09/24 History (Jardiance) pregabalin 50 mg capsule 100 mg PO DAILY 09/04/24 09/09/24 History sitagliptin phosphate 50 mg tablet 50 mg PO DAILY 09/09/24 09/09/24 History (Januvia) Allergies Allergy/AdvReac Type Severity Reaction Status Date / Time No Known Drug Allergies Allergy Verified 09/04/24 15:53 Review of Systems Review of Systems Narrative: She was not lightheaded and did not have chest pain dizziness or weakness prior to the fall. She just stumbled and fell. Exam Vital Signs (past 8 hours): - 09/09/24 08:14 09/09/24 08:18 09/09/24 08:20 Temperature 97.3 F L Pulse Rate 79 80 79 Respiratory Rate 18 Blood Pressure 143/69 H Pulse Oximetry 93 96 95 Oxygen Delivery Method Room Air Oxygen Flow Rate 09/09/24 08:20 09/09/24 08:30 09/09/24 08:36 Temperature Pulse Rate 78 Respiratory Rate 18 Blood Pressure 117/59 L 121/58 L Pulse Oximetry 94 Oxygen Delivery Method Room Air Oxygen Flow Rate 09/09/24 08:36 09/09/24 09:00 09/09/24 09:05 Temperature Pulse Rate 80 85 83 Respiratory Rate 18 18 Blood Pressure 129/68 Pulse Oximetry 94 89 L 95 Oxygen Delivery Method Room Air Nasal Cannula Oxygen Flow Rate 2 09/09/24 09:30 09/09/24 09:45 09/09/24 09:45 Temperature 98 F Pulse Rate 84 85 Respiratory Rate 18 16 Blood Pressure 129/62 117/64 Pulse Oximetry 95 92 Oxygen Delivery Method Nasal Cannula Oxygen Flow Rate 2 09/09/24 10:00 09/09/24 10:00 09/09/24 10:30 Temperature Pulse Rate 82 82 Respiratory Rate 12 10 L Blood Pressure 128/73 Pulse Oximetry 95 94 Oxygen Delivery Method Oxygen Flow Rate 09/09/24 10:30 09/09/24 11:00 09/09/24 11:01 Temperature Pulse Rate 82 Respiratory Rate 12 Blood Pressure 137/58 L 112/59 L Pulse Oximetry 96 Oxygen Delivery Method Oxygen Flow Rate 09/09/24 11:01 Temperature Pulse Rate 82 Respiratory Rate 12 Blood Pressure Pulse Oximetry 95 Oxygen Delivery Method Oxygen Flow Rate Oxygen Delivery Method Nasal Cannula Oxygen Flow Rate 2 Narrative Exam Narrative: HEENT is benign, she is alert and oriented. Lungs show slight decreased breath sounds, cor is regular rate and rhythm, abdomen is markedly distended with ascites, bowel sounds are present, left lower extremity shows bruising on the left knee, shortening of the left leg and pain with attempted gentle range of motion of the left knee, she can fire her toe flexors and extensors with trace motion Objective Labs 09/09/24 08:25 09/09/24 08:25 Labs: Laboratory Results - last 24 hr 09/09/24 09/09/24 08:25 09:30 WBC 9.9 RBC 4.52 Hgb 13.5 Hct 40.6 MCV 89.8 MCH 30.0 MCHC 33.4 RDW 17.0 H Plt Count 105 L Neut % (Auto) 80.9 H Lymph % (Auto) 9.4 L [place] % (Auto) 6.5 Eos % (Auto) 2.2 Baso % (Auto) 1.0 Neut # (Auto) 8100 H Lymph # (Auto) 900 L [place] # (Auto) 600 Eos # (Auto) 200 Baso # (Auto) 100 PT 11.8 INR 1.0 Sodium 129 L Potassium 4.8 Chloride 101 Carbon Dioxide 22 BUN 39 H Creatinine 1.86 H Estimated GFR 28 L BUN/Creatinine Ratio 21.0 Glucose 304 H Calcium 8.2 L Total Bilirubin 0.8 AST 35 ALT 28 Alkaline Phosphatase 148 H Ammonia 50 H Total Protein 6.2 L Albumin 2.9 L Globulin 3.3 Albumin/Globulin Ratio 0.9 L Lipase 147 Urine Color [place] Urine Appearance Cloudy Urine pH 5.5 Ur Specific [place] >=1.030 H Urine Protein Trace H Urine Glucose (UA) Negative Urine Ketones Negative Urine Occult Blood 1+ H Urine Nitrate Positive H Urine Bilirubin Negative Urine Urobilinogen 0.2 Ur Leukocyte Esterase Trace H Urine RBC 0-1/hpf Urine WBC 10-30/hpf H Ur Squamous Epith Cells 0-1 /hpf Urine Bacteria Moderate (10-30) H Urine Yeast >100/hpf Ur Culture Indicated? Specimen cultured Vol Urine Centrifuged 10ml (spun) Ketones < 0.02 X-rays show a left distal femur fracture metaphyseal with obvious displacement, soft tissue swelling, possible intercondylar extension of the femur fracture Assessment & Plan Assessment and plan (1) Hyperammonemia: Status: Acute (2) Femoral distal fracture: Status: Acute (3) End stage liver disease: Status: Acute (4) Ascites: Qualifiers: Ascites type: other type Qualified Code(s): R18.8 - Other ascites Status: Acute (5) Cirrhosis of liver: Qualifiers: Hepatic cirrhosis type: unspecified hepatic cirrhosis Ascites presence: with ascites Qualified Code(s): K74.60 - Unspecified cirrhosis of liver; R18.8 - Other ascites Status: Acute (6) COPD (chronic obstructive pulmonary disease): Qualifiers: COPD type: unspecified COPD Qualified Code(s): J44.9 - Chronic obstructive pulmonary disease, unspecified Status: Acute Plan I have recommended open reduction internal fixation of her left distal femur fracture. It was significantly displaced. I do not think she is a candidate for conservative treatment. I spoke to the internal medicine team as she was being admitted to Internal Medicine. They put temporary stabilizing orders. She is scheduled to have a port placed because of her ascites and recurrent paracentesis. I checked her labs in her coagulation. She was getting additional insulin to stabilize her sugars which were in the 300s. Left femur open reduction internal fixation procedure was discussed in detail. Procedure options risks benefits complications were discussed and again planning to proceed with that later today. Risks of the procedure including but not limited to bleeding, infection, malunion or nonunion, soft bone failure of fixation failure of bone and possibility of additional surgeries were discussed in detail. She clearly has multiple medical problems and is at higher risk for any surgical intervention but I think she is also an extremely poor candidate for nonoperative management. I think she will require rehab postoperatively. I anticipate a multiple day hospital stay. Time-Based Coding :: [TOTAL MINUTES] spent with patient and on the chart (including review of chart, obtaining history, exam, reviewing outside data, placing orders, documenting exam and treatment plan, and counseling patient) on [DATE].
[2024-09-09] MEDS: INSULIN LISPRO 100 UNIT/ML 3ML VIAL 10 UNIT SUBCUT (12:22)
[2024-09-09] MEDS: LACTATED RINGERS 1,000 ML 42 ML IV ×2 (13:20→16:41)
--- NOTE | 2024-09-09 13:26 | P.OP_ITS ---
Operative Date/Time/Diagnoses Date of procedure: 09/09/24 Time of procedure: 13:40 Pre-op diagnosis: Left distal femur fracture supracondylar Post-op diagnosis: same Procedure & Clinicians Procedure: ORIF left distal supracondylar femur fracture Same procedure as scheduled: Yes Indications: 74-year-old female with multiple medical problems including chronic liver and renal failure who fell at home and sustained a displaced left supracondylar distal femur fracture. She was brought the operating room for open reduction internal fixation. The procedure options risks benefits and complications were discussed in detail. She understands and agrees risks including but not limited to infection, bone failure, heart your, nonunion malunion and persistent pain despite fixation of the complications especially as she has multiple medical problems. The procedure alternatives risks benefits and complications were discussed in detail. Surgeon: Geneva Card All Around Gear Machine Operator: Re Desouza Anesthesia Type: General Operative Notes Findings: Comminuted left distal femur fracture, soft bone, adequate reduction Closure Type: primary Specimen(s): none sent Prosthetic devices, grafts, tissues, transplants, or devices: Card and nephew distal femur locking plate 6 hole Estimated Blood Loss (mL): 300 Blood products transfused: none Tourniquet time (min): 65 Procedure in detail: Patient was brought the operating room. She underwent induction of general anesthesia. A time-out was performed. She was given IV antibiotics. The patient's left lower extremity was prepped draped standard sterile fashion. A high-thigh sterile tourniquet was applied to the leg. The tourniquet was applied sterilely. It was elevated to 300 mmHg. Lateral skin incision was made dissection was carried out through skin and subcutaneous tissues. Iliotibial band was incised in line with the skin incision. Dissection down onto the distal femur. Fluoroscopic image was used to further evaluate the fracture site. A locking 6 hole plate was selected and positioned along the lateral aspect of the femur. Fracture was meticulously reduced. It was provisionally fixed to the femur with suture tacks and long K-wires were placed distally. The reduction was confirmed with AP and lateral image. I carefully adjusted the fracture and the plate to optimize position and healing. Plate position was confirmed with AP and lateral image. The plate was then filled with a combination of locking and nonlocking screws. The wound was meticulously irrigated with normal saline. The position of the screws and fracture alignment was carefully checked. All the screws were carefully tightened. Moderate imaging was performed in order to allow visualization of the fracture and the reduction and plate position. Hemostasis was achieved. The wound was closed with interrupted Vicryl running locking stitches and skin michelle. A gm dressing was placed. The wound was dressed sterilely. Patient was placed in a knee immobilizer. She tolerated the procedure and stable condition. Complications: none Post-operative Condition: stable Disposition: Acute Care Plan for aftercare: Partial weight-bearing left lower extremity 50 lb, knee immobilizer, likely discharge to long-term facility when medically stable. Patient needs paracentesis and has a surgery scheduled with general surgery for 09/13/2024..
[2024-09-09] MEDS: INSULIN REGULAR 100 UNIT/ML 3 ML VIAL 10 UNIT IV (13:30)
[2024-09-09] MEDS: CEFAZOLIN VIAL 1 GM in SODIUM CHLORIDE 0.9% 100 ML IV (13:54)
[2024-09-09] MEDS: CEFAZOLIN 2 GM/100 ML PREMIX 100 ML IV ×2 (13:54→20:42)
--- NOTE | 2024-09-09 14:09 | PC.NURSE ---
verbal report given to acu rn after patient completed surger/pacu for admission to acu #[id number] taylor hassan
--- NOTE | 2024-09-09 14:23 | SUR.OPER ---
Supine on padded OR bed, head on pillow, arms secured on padded arm boards at <90 degrees abduction, legs uncrossed, safety belt to upper body, bump to left hip, tape over blanket securing right lower leg.
[2024-09-09] MEDS: BUPIVACAINE 0.5% W/ EPI (PF) 30 ML VIAL INJ (14:35)
[2024-09-09] MEDS: BUPIVACAINE LIPOSOME 266 MG/20 ML VIAL INJ (15:12)
[2024-09-09] MEDS: TRANEXAMIC ACID 1,000 MG in SODIUM CHLORIDE 0.9% 100 ML 200 MG IV (15:40)
--- NOTE | 2024-09-09 16:32 | SUR.PHASEI ---
Verbal report given to BRIGIDO Olson for ICU. Respiratory therapy notified of transfer and ICU status. Patient to ICU due to inability to extubate. See anesthesia record and PACU notes. Patient transferred to ICU with PACU staff and Dr Gene Medina, anesthesia with continuous cardiac monitoring.
--- NOTE | 2024-09-09 16:55 | SUR.OPER ---
PATIENT RECOVERED IN OR WHILE WAITING FOR RESPIRATORY TO SET UP VENT IN ICU.
[2024-09-09] MEDS: propofoL 1,000 MG/100 ML VIAL 4.119 MG IV (17:30)
[2024-09-09] MEDS: LACTATED RINGERS 1,000 ML 100 ML IV (18:02)
[2024-09-09] MEDS: ALBUMIN HUMAN 25 GM/100 ML VIAL IV (18:10)
[2024-09-09] MEDS: CHLORHEXIDINE GLUCONATE 15 ML CUP PO (18:11)
[2024-09-09] MEDS: INSULIN LISPRO 100 UNIT/ML 3ML VIAL SUBCUT (18:14)
[2024-09-09 19:02] LABS: MRSA (Nasal) PCR NOT DETECTED (Not Detect)
--- NOTE | 2024-09-09 19:29 | PM.HP.1 ---
History of Present Illness History of Present Illness Chief complaint: Fall Narrative: 74-year-old female with end-stage liver disease with cirrhosis, COPD with current tobacco dependence, hypertension, hypothyroidism, diabetes mellitus type 2 who presented to the emergency department this morning after a trip and fall and was found to have a comminuted L distal femur fx. She is presently receiving high volume paracenteses via Interventional Radiology approximately every 2 weeks and is scheduled to undergo PleurX tunneled catheter placement and this coming week with Dr. Loomis. Her most recent paracentesis was performed on August 23 with 13 L removed. Prior to that, 11.5 L was removed August 09, 12.3 L on July 26, and 11.7 L on July 12. She was scheduled for a paracentesis on 09/06/2024, but it was not done for unclear reasons. Due to her distal femur fracture, and concerns about her significant tense ascites, anesthesia did contact General surgery today prior to her femur fracture repair to discuss possibility of a paracentesis today preoperatively. However, general surgery felt that doing a paracentesis would increase risk of the hole from the paracentesis having ongoing leakage. Patient subsequently went to the OR where the fracture repair went without significant complication. However postoperatively, patient could not be extubated secondary to ongoing failure of her spontaneous breathing trial. Her end-tidal CO2 was up to 76, she required 70% FiO2, and her O2 saturation was 91%. It was felt that her tense ascites was a significant contributor to her failure to be able to be extubated. She is now admitted to the intensive care unit. [facility] Medical History (Updated 09/09/24 @ 20:01 by Juni Gale MD) Hypertension Hypothyroidism ESRD (end stage renal disease) Depressive disorder Diabetes Social History marital status: household members: spouse Smoking Status: Current every day smoker Tobacco: How many years used: 56 alcohol intake: never Meds Home Medications and Allergies Home Medications Medication Instructions Recorded Confirmed Type albuterol sulfate 90 mcg/actuation 2 puff inhalation DAILY PRN 07/07/23 09/09/24 History aerosol inhaler (ProAir HFA) Wheezing tiotropium bromide 1.25 2 puff inhalation DAILY 07/07/23 09/09/24 History mcg/actuation mist for inhalation (Spiriva Respimat) furosemide 40 mg tablet (Lasix) 40 mg PO BID #10 tabs 08/14/23 09/09/24 Rx blood sugar diagnostic (CareTouch #50 ea 12/02/23 09/09/24 Rx Test Strip) blood-glucose meter (CareTouch #1 ea 12/02/23 09/09/24 Rx Glucose Monitoring System kit) insulin glargine 100 unit/mL (3 60 unit SUBCUT ONCE HS 06/29/24 09/09/24 History mL) subcutaneous pen (Lantus Solostar U-100 Insulin) levothyroxine 175 mcg tablet 175 mcg PO 0600 #30 tabs 06/30/24 09/09/24 Rx (Synthroid) doxepin 10 mg capsule 20 mg PO ONCE PM 09/04/24 09/09/24 History empagliflozin 10 mg tablet 10 mg PO DAILY 09/04/24 09/09/24 History (Jardiance) pregabalin 50 mg capsule 100 mg PO DAILY 09/04/24 09/09/24 History empagliflozin 10 mg tablet 10 mg PO DAILY 09/09/24 09/09/24 History (Jardiance) sitagliptin phosphate 50 mg tablet 50 mg PO DAILY 09/09/24 09/09/24 History (Januvia) Allergies Allergy/AdvReac Type Severity Reaction Status Date / Time No Known Drug Allergies Allergy Verified 09/04/24 15:53 Review of Systems Review of Systems Narrative: Unable to obtain, patient is intubated and sedated Exam Vital Signs (past 8 hours): - 09/09/24 11:30 09/09/24 11:30 09/09/24 12:00 Temperature Pulse Rate 82 83 Respiratory Rate 11 L 12 Blood Pressure 108/55 L Pulse Oximetry 96 96 Oxygen Delivery Method Nasal Cannula Oxygen Flow Rate 2 Fraction of Inspired Oxygen 09/09/24 12:00 09/09/24 12:30 09/09/24 12:30 Temperature Pulse Rate 84 Respiratory Rate 12 Blood Pressure 113/65 125/59 L Pulse Oximetry 95 Oxygen Delivery Method Nasal Cannula Oxygen Flow Rate 2 Fraction of Inspired Oxygen 09/09/24 12:59 09/09/24 12:59 09/09/24 16:27 Temperature 97.2 F L Pulse Rate 87 76 Respiratory Rate 21 12 Blood Pressure 101/68 99/50 L Pulse Oximetry 96 99 Oxygen Delivery Method Nasal Cannula Nasal Cannula Mechanical Ventilation Oxygen Flow Rate 3 Fraction of Inspired Oxygen 09/09/24 16:38 09/09/24 16:45 09/09/24 16:49 Temperature Pulse Rate 75 74 71 Respiratory Rate 16 12 12 Blood Pressure 102/53 L 106/53 L 110/55 L Pulse Oximetry 98 100 100 Oxygen Delivery Method Mechanical Ventilation Mechanical Ventilation Room Air Oxygen Flow Rate Fraction of Inspired Oxygen 09/09/24 17:00 09/09/24 17:22 09/09/24 17:24 Temperature Pulse Rate 73 71 Respiratory Rate 18 14 Blood Pressure 116/68 Pulse Oximetry 100 99 Oxygen Delivery Method Mechanical Ventilation Oxygen Flow Rate Fraction of Inspired Oxygen 09/09/24 17:30 09/09/24 17:30 09/09/24 17:30 Temperature Pulse Rate 69 71 Respiratory Rate 14 15 Blood Pressure 127/62 127/62 Pulse Oximetry 99 99 Oxygen Delivery Method Oxygen Flow Rate Fraction of Inspired Oxygen 09/09/24 17:35 09/09/24 17:45 09/09/24 17:45 Temperature Pulse Rate 70 Respiratory Rate 15 Blood Pressure 116/55 L Pulse Oximetry 98 Oxygen Delivery Method Oxygen Flow Rate Fraction of Inspired Oxygen 40 09/09/24 18:00 09/09/24 18:00 09/09/24 18:00 Temperature Pulse Rate 75 80 Respiratory Rate 16 17 Blood Pressure 111/56 L 111/56 L Pulse Oximetry 96 84 L Oxygen Delivery Method Oxygen Flow Rate Fraction of Inspired Oxygen 09/09/24 18:15 09/09/24 18:15 09/09/24 18:30 Temperature Pulse Rate 73 74 Respiratory Rate 23 10 L Blood Pressure 108/54 L Pulse Oximetry 96 98 Oxygen Delivery Method Oxygen Flow Rate Fraction of Inspired Oxygen 09/09/24 18:30 09/09/24 18:45 09/09/24 18:45 Temperature Pulse Rate 73 Respiratory Rate 10 L Blood Pressure 146/63 H 147/63 H Pulse Oximetry 100 Oxygen Delivery Method Oxygen Flow Rate Fraction of Inspired Oxygen 09/09/24 19:00 Temperature Pulse Rate 73 Respiratory Rate 10 L Blood Pressure 147/63 H Pulse Oximetry 99 Oxygen Delivery Method Oxygen Flow Rate Fraction of Inspired Oxygen Fraction of Inspired Oxygen 40 Oxygen Delivery Method Mechanical Ventilation Oxygen Flow Rate 3 Narrative Exam Narrative: GEN: Elderly female, intubated and sedated no acute distress HEENT: Normocephalic, face symmetric, pupils equal round reactive to light, extraocular movements can not be assessed, sclerae anicteric, conjunctiva clear, nares patent, mild lower lip swelling noted NECK: Supple, no lymphadenopathy, CHEST: Respiratory excursions symmetric, diffusely diminished with expiratory wheezes in the anterior lung rice bilaterally CV: Regular rate and rhythm, no murmurs, rubs, gallops, PMI nondisplaced ABD: Firm, massively distended with ascites, bowel sounds present in all 4 quadrants, distention precludes evaluation for organomegaly EXTR: Warm, well perfused, no clubbing/cyanosis/1 to 2+ bilateral lower extremity pitting edema SKIN: Warm and dry, without rash NEURO: Intubated, sedated PSYCH: Unable to assess Objective Labs 09/09/24 08:25 09/09/24 08:25 Labs: Laboratory Results - last 24 hr 09/09/24 09/09/24 09/09/24 08:25 09:30 17:35 WBC 9.9 RBC 4.52 Hgb 13.5 Hct 40.6 MCV 89.8 MCH 30.0 MCHC 33.4 RDW 17.0 H Plt Count 105 L Neut % (Auto) 80.9 H Lymph % (Auto) 9.4 L [place] % (Auto) 6.5 Eos % (Auto) 2.2 Baso % (Auto) 1.0 Neut # (Auto) 8100 H Lymph # (Auto) 900 L [place] # (Auto) 600 Eos # (Auto) 200 Baso # (Auto) 100 PT 11.8 INR 1.0 Sodium 129 L Potassium 4.8 Chloride 101 Carbon Dioxide 22 BUN 39 H Creatinine 1.86 H Estimated GFR 28 L BUN/Creatinine Ratio 21.0 Glucose 304 H Calcium 8.2 L Total Bilirubin 0.8 AST 35 ALT 28 Alkaline Phosphatase 148 H Ammonia 50 H Total Protein 6.2 L Albumin 2.9 L Globulin 3.3 Albumin/Globulin Ratio 0.9 L Lipase 147 Urine Color [place] Urine Appearance Cloudy Urine pH 5.5 Ur Specific [place] >=1.030 H Urine Protein Trace H Urine Glucose (UA) Negative Urine Ketones Negative Urine Occult Blood 1+ H Urine Nitrate Positive H Urine Bilirubin Negative Urine Urobilinogen 0.2 Ur Leukocyte Esterase Trace H Urine RBC 0-1/hpf Urine WBC 10-30/hpf H Ur Squamous Epith Cells 0-1 /hpf Urine Bacteria Moderate (10-30) H Urine Yeast >100/hpf Ur Culture Indicated? Specimen cultured Vol Urine Centrifuged 10ml (spun) Nasal Screen MRSA (PCR) Not detected Ketones < 0.02 Assessment & Plan Assessment & Plan narrative: 1. Acute hypoxic respiratory failure Likely secondary to a combination of restriction from her severe ascites and underlying COPD. I contacted general surgery to ascertain if they would be receptive to a bedside paracentesis now that she requires intubation. At this time he does not feel this would be a reasonable option again secondary to the likelihood of ongoing leakage from the paracentesis site. He recommends waiting until Interventional Radiology is present in the hospital to do so. They will not be back in the hospital until 09/11/2024. In the interim, I have requested tele ICU consultation for ventilator management. I have spoken personally to Dr. Gale. 2. COPD She is on albuterol and Spiriva at baseline. Active smoker as well per orthopedic surgeries admit visit earlier today. Will place on a nicotine patch. 3. Reportedly non alcoholic steatohepatitis with end-stage cirrhosis and ascites As noted above, patient was slated to have a tunneled catheter placed for management of ascites at home to reduce her symptoms from high volume paracentesis. Dr. Loomis was to do this this coming week. Unfortunately her last paracentesis was done over 2 weeks ago at which time 13 L was removed. She obviously needs another high volume paracentesis at this time, and her ascites is obviously contributing to her poor respiratory status. Will attempt to have a paracentesis performed as soon as possible. General surgery will consult tomorrow to assess. More likely however, will wait until Interventional Radiology on Wednesday. Ultimately, plan will be for a tunneled PleurX catheter when she is medically stable on an outpatient basis. 4. Distal left femur fracture after mechanical fall Postoperative day 0. Ongoing management per Orthopedic surgery. 5. Diabetes mellitus type [address] fingersticks and sliding scale. Currently NPO due to intubated status. She is typically on 60 units of Lantus at bedtime. Will decrease that to 25 units as she is presently NPO. Code Full Prophy Start chemical profile when approved for ortho Dispo Admit to ICU Time-Based Coding :: [TOTAL MINUTES] spent with patient and on the chart (including review of chart, obtaining history, exam, reviewing outside data, placing orders, documenting exam and treatment plan, and counseling patient) on [DATE].
--- NOTE | 2024-09-09 19:33 | PC.NURSE ---
Pt arrived via bed from OR, Dr Medina and Ember, RN at bedside, pt quickly attached to vent in room, transitioned successful. VSS, bedside report received, Dr Woodard at bedside, new orders received, tele ICU contacted for vent management. No further pt needs at this time, care ongoing
--- NOTE | 2024-09-09 19:52 | PM.CN.EICU ---
History of Present Illness Consult details IF CAMERA ACTIVATED, patient seen via real-time interactive audiovisual communication: Camera activated Chief complaint: Fall Consent obtained for tele-access analyst care: Yes Patient Location: ICU Provider location (State): [place] Other participants/roles: No one else Narrative: 74-year-old female with end-stage liver disease with cirrhosis, COPD with current tobacco dependence, hypertension, hypothyroidism, T2DM who is POD #0 from repair of a comminuted L distal femur fx. She gets chronic paracenteses and was scheduled for a PleurX catheter in coming week. She has severe ascites and could not be extubated in the PACU; she was sent to the ICU. Telecritical care consulted for ventilator mgmt. [facility] Medical History (Updated 09/09/24 @ 20:01 by Juni Gale MD) Hypertension Hypothyroidism ESRD (end stage renal disease) Depressive disorder Diabetes Social History marital status: household members: spouse Smoking Status: Current every day smoker Tobacco: How many years used: 56 alcohol intake: never Current Medications Current Medications Medications: Home Medications albuterol sulfate 90 mcg/actuation aerosol inhaler (ProAir HFA) 2 puff inhalation DAILY PRN Wheezing 07/07/23 [History Confirmed 09/09/24] tiotropium bromide 1.25 mcg/actuation mist for inhalation (Spiriva Respimat) 2 puff inhalation DAILY 07/07/23 [History Confirmed 09/09/24] furosemide 40 mg tablet (Lasix) 40 mg PO BID #10 tabs 08/14/23 [Rx Confirmed 09/09/24] blood sugar diagnostic (CareTouch Test Strip) #50 ea 12/02/23 [Rx Confirmed 09/09/24] blood-glucose meter (ZetrOZuch Glucose Monitoring System kit) #1 ea 12/02/23 [Rx Confirmed 09/09/24] insulin glargine 100 unit/mL (3 mL) subcutaneous pen (Lantus Solostar U-100 Insulin) 60 unit SUBCUT ONCE HS 06/29/24 [History Confirmed 09/09/24] levothyroxine 175 mcg tablet (Synthroid) 175 mcg PO 0600 #30 tabs 06/30/24 [Rx Confirmed 09/09/24] doxepin 10 mg capsule 20 mg PO ONCE PM 09/04/24 [History Confirmed 09/09/24] empagliflozin 10 mg tablet (Jardiance) 10 mg PO DAILY 09/04/24 [History Confirmed 09/09/24] pregabalin 50 mg capsule 100 mg PO DAILY 09/04/24 [History Confirmed 09/09/24] empagliflozin 10 mg tablet (Jardiance) 10 mg PO DAILY 09/09/24 [History Confirmed 09/09/24] sitagliptin phosphate 50 mg tablet (Januvia) 50 mg PO DAILY 09/09/24 [History Confirmed 09/09/24] Visit Medications (administered) Generic Name Dose Route Start Last Admin Trade Name Freq PRN Reason Stop Dose Admin Chlorhexidine Gluconate 15 ml 09/09/24 18:00 09/09/24 18:11 Chlorhexidine Gluconate 15 Ml Cup PO 15 ml Q6HR ELIAN Administration Propofol 1,000 mg in 100 mls @ 4.119 mls/hr 09/09/24 17:30 09/09/24 17:30 Diprivan IV 5 mcg/kg/min TITRATE ELIAN 4.119 mls/hr Administration Protocol 5 MCG/KG/MIN Lactated Ringer's 1,000 mls @ 50 mls/hr 09/09/24 17:45 09/09/24 18:02 Lactated Ringers IV 100 mls/hr CONT ELIAN Administration Insulin Human Lispro 0 unit 09/09/24 17:45 09/09/24 18:14 Insulin Lispro 100 Unit/Ml 3ml Vial SUBCUT 4 unit Q6H ELIAN Administration Protocol Exam Vital Signs (past 8 hours): - 09/09/24 12:00 09/09/24 12:00 09/09/24 12:30 Temperature Pulse Rate 83 84 Respiratory Rate 12 12 Blood Pressure 113/65 Pulse Oximetry 96 95 Oxygen Delivery Method Nasal Cannula Oxygen Flow Rate 2 Fraction of Inspired Oxygen 09/09/24 12:30 09/09/24 12:59 09/09/24 12:59 Temperature 97.2 F L Pulse Rate 87 Respiratory Rate 21 Blood Pressure 125/59 L 101/68 Pulse Oximetry 96 Oxygen Delivery Method Nasal Cannula Nasal Cannula Oxygen Flow Rate 3 Fraction of Inspired Oxygen 09/09/24 16:27 09/09/24 16:38 09/09/24 16:45 Temperature Pulse Rate 76 75 74 Respiratory Rate 12 16 12 Blood Pressure 99/50 L 102/53 L 106/53 L Pulse Oximetry 99 98 100 Oxygen Delivery Method Mechanical Ventilation Mechanical Ventilation Mechanical Ventilation Oxygen Flow Rate Fraction of Inspired Oxygen 09/09/24 16:49 09/09/24 17:00 09/09/24 17:22 Temperature Pulse Rate 71 73 Respiratory Rate 12 18 Blood Pressure 110/55 L 116/68 Pulse Oximetry 100 100 Oxygen Delivery Method Room Air Mechanical Ventilation Oxygen Flow Rate Fraction of Inspired Oxygen 09/09/24 17:24 09/09/24 17:30 09/09/24 17:30 Temperature Pulse Rate 71 69 71 Respiratory Rate 14 14 15 Blood Pressure 127/62 Pulse Oximetry 99 99 99 Oxygen Delivery Method Oxygen Flow Rate Fraction of Inspired Oxygen 09/09/24 17:30 09/09/24 17:35 09/09/24 17:45 Temperature Pulse Rate 70 Respiratory Rate 15 Blood Pressure 127/62 Pulse Oximetry 98 Oxygen Delivery Method Oxygen Flow Rate Fraction of Inspired Oxygen 40 09/09/24 17:45 09/09/24 18:00 09/09/24 18:00 Temperature Pulse Rate 75 Respiratory Rate 16 Blood Pressure 116/55 L 111/56 L 111/56 L Pulse Oximetry 96 Oxygen Delivery Method Oxygen Flow Rate Fraction of Inspired Oxygen 09/09/24 18:00 09/09/24 18:15 09/09/24 18:15 Temperature Pulse Rate 80 73 Respiratory Rate 17 23 Blood Pressure 108/54 L Pulse Oximetry 84 L 96 Oxygen Delivery Method Oxygen Flow Rate Fraction of Inspired Oxygen 09/09/24 18:30 09/09/24 18:30 09/09/24 18:45 Temperature Pulse Rate 74 Respiratory Rate 10 L Blood Pressure 146/63 H 147/63 H Pulse Oximetry 98 Oxygen Delivery Method Oxygen Flow Rate Fraction of Inspired Oxygen 09/09/24 18:45 09/09/24 19:00 Temperature Pulse Rate 73 73 Respiratory Rate 10 L 10 L Blood Pressure 147/63 H Pulse Oximetry 100 99 Oxygen Delivery Method Oxygen Flow Rate Fraction of Inspired Oxygen Fraction of Inspired Oxygen 40 Oxygen Delivery Method Mechanical Ventilation Oxygen Flow Rate 3 Const Other: intubated, sedated Resp Effort & Inspection: normal respiratory effort and other (440 mL 45% RR 14 PEEP 5 cm H20; propofol 5 mcg/kg/min) Cardio Rate: regular rate Rhythm: regular rhythm Objective Labs 09/09/24 08:25 09/09/24 08:25 Labs: Laboratory Results - last 24 hr 09/09/24 09/09/24 09/09/24 08:25 09:30 17:35 WBC 9.9 RBC 4.52 Hgb 13.5 Hct 40.6 MCV 89.8 MCH 30.0 MCHC 33.4 RDW 17.0 H Plt Count 105 L Neut % (Auto) 80.9 H Lymph % (Auto) 9.4 L [place] % (Auto) 6.5 Eos % (Auto) 2.2 Baso % (Auto) 1.0 Neut # (Auto) 8100 H Lymph # (Auto) 900 L [place] # (Auto) 600 Eos # (Auto) 200 Baso # (Auto) 100 PT 11.8 INR 1.0 Sodium 129 L Potassium 4.8 Chloride 101 Carbon Dioxide 22 BUN 39 H Creatinine 1.86 H Estimated GFR 28 L BUN/Creatinine Ratio 21.0 Glucose 304 H Calcium 8.2 L Total Bilirubin 0.8 AST 35 ALT 28 Alkaline Phosphatase 148 H Ammonia 50 H Total Protein 6.2 L Albumin 2.9 L Globulin 3.3 Albumin/Globulin Ratio 0.9 L Lipase 147 Urine Color [place] Urine Appearance Cloudy Urine pH 5.5 Ur Specific [place] >=1.030 H Urine Protein Trace H Urine Glucose (UA) Negative Urine Ketones Negative Urine Occult Blood 1+ H Urine Nitrate Positive H Urine Bilirubin Negative Urine Urobilinogen 0.2 Ur Leukocyte Esterase Trace H Urine RBC 0-1/hpf Urine WBC 10-30/hpf H Ur Squamous Epith Cells 0-1 /hpf Urine Bacteria Moderate (10-30) H Urine Yeast >100/hpf Ur Culture Indicated? Specimen cultured Vol Urine Centrifuged 10ml (spun) Nasal Screen MRSA (PCR) Not detected Ketones < 0.02 Assessment & Plan Assessment and plan (1) Femoral distal fracture: Qualifiers: Encounter type: initial encounter Fracture type: closed Fracture morphology: other fracture Laterality: unspecified laterality Qualified Code(s): S72.499A - Other fracture of lower end of unspecified femur, initial encounter for closed fracture Status: Acute Plan: -As per ortho (2) Cirrhosis of liver: Qualifiers: Hepatic cirrhosis type: unspecified hepatic cirrhosis Ascites presence: with ascites Qualified Code(s): K74.60 - Unspecified cirrhosis of liver; R18.8 - Other ascites Status: Acute Plan: -Paracentesis as soon as feasible -Decrease IVF rate (3) COPD (chronic obstructive pulmonary disease): Qualifiers: COPD type: chronic bronchitis Status: Acute Plan: -PRN Duonebs (4) On mechanically assisted ventilation: Status: Acute Plan: -Vent bundle -Check pCXR to verify ETT position (5) Diabetes: Qualifiers: Diabetes mellitus type: type 2 Diabetes mellitus intermediate teacher insulin use: with intermediate teacher use Status: Acute Plan: -Correctional insulin Time-Based Coding :: I spent a total of 35 minutes of aggregate critical care time on this patient's care; this time excludes all procedural time.
--- NOTE | 2024-09-09 19:57 | DI.RAD.S_ITS ---
PROCEDURE: XR CHEST 1V INDICATIONS: check endotracheal tube position TECHNIQUE: One view of the chest was acquired. COMPARISON: [facility], CR, XR CHEST 1V, 09/09/2024, 8:40. [facility], CR, XR CHEST 1V, 06/29/2024, 3:20. FINDINGS: Surgical changes and devices: Endotracheal tube in the lower trachea. Lungs and pleura: Low lung volumes. Bilateral airspace opacity, similar. No large pleural effusions or pneumothorax. Mediastinum: Mediastinal contours appear normal. Heart size appears prominent. Bones and chest wall: No suspicious bony lesions. Overlying soft tissues appear unremarkable. IMPRESSION: Endotracheal tube in the lower trachea. Lower lung volumes and bilateral airspace opacity. Dictated by: Daniel Sharma M.D. on 09/09/2024 at 20:25 Approved by: Daniel Sharma M.D. on 09/09/2024 at 20:27
[2024-09-09] MEDS: FUROSEMIDE 40 MG/4 ML VIAL IV (20:42)
[2024-09-09 20:43] LABS: Allen Test for ABG Passed? Positive; Base Excess ABG -1.2 mmol/L (-2-3); Blood Gas Collection Site Left Radial; Blood Gas Mode Assist Cont Ventilat; Delivery System Adult Ventilator; HCO3 ABG 28 mmol/L (23-27); Oxygen Saturation ABG 52 % (95-100); PCO2 ABG 67.6 mmHg (35-45); PO2 ABG 34 mmHg (80-100); TCO2 ABG 28 mmol/L (23-27); pH ABG 7.22 (7.35-7.45)
[2024-09-09] MEDS: INSULIN GLARGINE 100 UNIT/ML 3ML PEN 25 UNIT SUBCUT (21:06)
[2024-09-10] VITALS (33 sets, daily range): BP systolic 96–180; BP diastolic 51–101; PULSE 65–84; RESP 18–26; TEMP 36.6–37.1; O2SAT 92–100
[2024-09-10] MEDS: CHLORHEXIDINE GLUCONATE 15 ML CUP PO ×3 (00:27→12:44)
[2024-09-10] MEDS: INSULIN LISPRO 100 UNIT/ML 3ML VIAL SUBCUT ×3 (00:28→12:43)
[2024-09-10] MEDS: LACTATED RINGERS 1,000 ML 100 ML IV (01:44)
[2024-09-10] MEDS: CEFAZOLIN 2 GM/100 ML PREMIX 100 ML IV (04:47)
[2024-09-10] MEDS: propofoL 1,000 MG/100 ML VIAL 4.119 MG IV (06:01)
--- NOTE | 2024-09-10 07:23 | PC.NURSE ---
Improvement Lead Note-Patient is on ventilator FIO2 45% TV 440 PEEP 5 RR increased to 20 after Tele-I provider notified of ABG drawn at HS. Lung sounds rhonchorous with intermittent exp wheezes. Sedated on propofol 2-6mcg/kg/min-see Emar titrations. Patient is edematous with very large ascites. Reji wrap and knee immobilizer intact on Lt knee. CMS intact. UOP 175ml cloudy UOP, IV Lasix given per schedule. Mitts in place on bilat hands.
--- NOTE | 2024-09-10 08:17 | PM.PN.1 ---
Subjective Subjective Interval history: Summary: 74-year-old female with end-stage liver disease with cirrhosis, COPD with current tobacco dependence, hypertension, hypothyroidism, diabetes mellitus type 2 who presented to the emergency department this morning after a trip and fall and was found to have a comminuted L distal femur fx. She is presently receiving high volume paracenteses via Interventional Radiology approximately every 2 weeks and is scheduled to undergo PleurX tunneled catheter placement and this coming week with Dr. Loomis. Her most recent paracentesis was performed on August 23 with 13 L removed. Prior to that, 11.5 L was removed August 09, 12.3 L on July 26, and 11.7 L on July 12. She was scheduled for a paracentesis on 09/06/2024, but it was not done for unclear reasons. Due to her distal femur fracture, and concerns about her significant tense ascites, anesthesia did contact General surgery today prior to her femur fracture repair to discuss possibility of a paracentesis today preoperatively. However, general surgery felt that doing a paracentesis would increase risk of the hole from the paracentesis having ongoing leakage. Patient subsequently went to the OR where the fracture repair went without significant complication. However postoperatively, patient could not be extubated secondary to ongoing failure of her spontaneous breathing trial. Her end-tidal CO2 was up to 76, she required 70% FiO2, and her O2 saturation was 91%. It was felt that her tense ascites was a significant contributor to her failure to be able to be extubated. She is now admitted to the intensive care unit. S: Exam Vital Signs (past 8 hours): - 09/10/24 00:24 09/10/24 00:24 09/10/24 00:30 Pulse Rate 79 78 Respiratory Rate 23 22 Blood Pressure 180/65 H Pulse Oximetry 97 98 Oxygen Delivery Method 09/10/24 00:30 09/10/24 01:00 09/10/24 01:00 Pulse Rate 69 Respiratory Rate 23 Blood Pressure 168/101 H 102/52 L Pulse Oximetry 98 Oxygen Delivery Method 09/10/24 01:30 09/10/24 01:30 09/10/24 02:00 Pulse Rate 71 Respiratory Rate 22 Blood Pressure 106/58 L 103/53 L Pulse Oximetry 99 Oxygen Delivery Method 09/10/24 02:00 09/10/24 02:30 09/10/24 02:30 Pulse Rate 70 70 Respiratory Rate 20 20 Blood Pressure 105/54 L Pulse Oximetry 100 100 Oxygen Delivery Method 09/10/24 03:00 09/10/24 03:00 09/10/24 03:30 Pulse Rate 69 Respiratory Rate 20 Blood Pressure 108/55 L 106/51 L Pulse Oximetry 100 Oxygen Delivery Method 09/10/24 03:30 09/10/24 04:00 09/10/24 04:00 Pulse Rate 69 69 Respiratory Rate 20 20 Blood Pressure Pulse Oximetry 100 100 Oxygen Delivery Method Mechanical Ventilation 09/10/24 04:00 09/10/24 04:30 09/10/24 04:30 Pulse Rate 70 Respiratory Rate 20 Blood Pressure 104/58 L 105/59 L Pulse Oximetry 99 Oxygen Delivery Method 09/10/24 05:00 09/10/24 05:00 09/10/24 05:30 Pulse Rate 69 71 Respiratory Rate 20 20 Blood Pressure 106/55 L Pulse Oximetry 99 99 Oxygen Delivery Method 09/10/24 05:30 09/10/24 06:00 09/10/24 06:00 Pulse Rate 72 Respiratory Rate 20 Blood Pressure 105/57 L 113/57 L Pulse Oximetry 99 Oxygen Delivery Method 09/10/24 07:00 09/10/24 07:00 09/10/24 07:30 Pulse Rate 73 71 Respiratory Rate 20 20 Blood Pressure 111/53 L Pulse Oximetry 97 99 Oxygen Delivery Method 09/10/24 07:30 Pulse Rate Respiratory Rate Blood Pressure 106/51 L Pulse Oximetry Oxygen Delivery Method Fraction of Inspired Oxygen 40 Oxygen Delivery Method Mechanical Ventilation Oxygen Flow Rate 3 Narrative Exam Narrative: Patient is sedated Patient is on the ventilator, OG tube in place. Mendoza catheter in place. Lungs are clear. Heart is regular. Abdomen is non distended, and soft. Extremities are free of edema. Skin is free of rash or lesions. Joints are not swollen or deformed. Objective Labs 09/09/24 08:25 09/09/24 08:25 Labs: Laboratory Results - last 24 hr 09/09/24 09/09/24 09/09/24 08:25 09:30 17:35 WBC 9.9 RBC 4.52 Hgb 13.5 Hct 40.6 MCV 89.8 MCH 30.0 MCHC 33.4 RDW 17.0 H Plt Count 105 L Neut % (Auto) 80.9 H Lymph % (Auto) 9.4 L [place] % (Auto) 6.5 Eos % (Auto) 2.2 Baso % (Auto) 1.0 Neut # (Auto) 8100 H Lymph # (Auto) 900 L [place] # (Auto) 600 Eos # (Auto) 200 Baso # (Auto) 100 PT 11.8 INR 1.0 ABG Sample Site ABG pH ABG pCO2 ABG pO2 ABG HCO3 ABG Total CO2 ABG O2 Saturation ABG Base Excess Javy Test O2 Delivery Device Mode of Support Sodium 129 L Potassium 4.8 Chloride 101 Carbon Dioxide 22 BUN 39 H Creatinine 1.86 H Estimated GFR 28 L BUN/Creatinine Ratio 21.0 Glucose 304 H Calcium 8.2 L Total Bilirubin 0.8 AST 35 ALT 28 Alkaline Phosphatase 148 H Ammonia 50 H Total Protein 6.2 L Albumin 2.9 L Globulin 3.3 Albumin/Globulin Ratio 0.9 L Lipase 147 Urine Color [place] Urine Appearance Cloudy Urine pH 5.5 Ur Specific [place] >=1.030 H Urine Protein Trace H Urine Glucose (UA) Negative Urine Ketones Negative Urine Occult Blood 1+ H Urine Nitrate Positive H Urine Bilirubin Negative Urine Urobilinogen 0.2 Ur Leukocyte Esterase Trace H Urine RBC 0-1/hpf Urine WBC 10-30/hpf H Ur Squamous Epith Cells 0-1 /hpf Urine Bacteria Moderate (10-30) H Urine Yeast >100/hpf Ur Culture Indicated? Specimen cultured Vol Urine Centrifuged 10ml (spun) Nasal Screen MRSA (PCR) Not detected Ketones < 0.02 09/09/24 20:37 WBC RBC Hgb Hct MCV MCH MCHC RDW Plt Count Neut % (Auto) Lymph % (Auto) [place] % (Auto) Eos % (Auto) Baso % (Auto) Neut # (Auto) Lymph # (Auto) [place] # (Auto) Eos # (Auto) Baso # (Auto) PT INR ABG Sample Site Left radial ABG pH 7.22 L* ABG pCO2 67.6 H* ABG pO2 34 L* ABG HCO3 28 H ABG Total CO2 28 H ABG O2 Saturation 52 L* ABG Base Excess -1.2 Javy Test Positive O2 Delivery Device Adult ventilator Mode of Support Assist cont ventilat Sodium Potassium Chloride Carbon Dioxide BUN Creatinine Estimated GFR BUN/Creatinine Ratio Glucose Calcium Total Bilirubin AST ALT Alkaline Phosphatase Ammonia Total Protein Albumin Globulin Albumin/Globulin Ratio Lipase Urine Color Urine Appearance Urine pH Ur Specific [place] Urine Protein Urine Glucose (UA) Urine Ketones Urine Occult Blood Urine Nitrate Urine Bilirubin Urine Urobilinogen Ur Leukocyte Esterase Urine RBC Urine WBC Ur Squamous Epith Cells Urine Bacteria Urine Yeast Ur Culture Indicated? Vol Urine Centrifuged Nasal Screen MRSA (PCR) Ketones PFSH Medical History Hypertension Hypothyroidism ESRD (end stage renal disease) Depressive disorder Diabetes Social History marital status: household members: spouse Smoking Status: Current every day smoker Tobacco: How many years used: 56 alcohol intake: never Assessment & Plan Assessment & Plan narrative: 1. Acute hypoxic respiratory failure Likely secondary to a combination of restriction from her severe ascites and underlying COPD. I contacted general surgery to ascertain if they would be receptive to a bedside paracentesis now that she requires intubation. At this time he does not feel this would be a reasonable option again secondary to the likelihood of ongoing leakage from the paracentesis site. He recommends waiting until Interventional Radiology is present in the hospital to do so. They will not be back in the hospital until 09/11/2024. In the interim, I have requested tele ICU consultation for ventilator management. I have spoken personally to Dr. Gale. 2. COPD She is on albuterol and Spiriva at baseline. Active smoker as well per orthopedic surgeries admit visit earlier today. Will place on a nicotine patch. 3. Reportedly non alcoholic steatohepatitis with end-stage cirrhosis and ascites As noted above, patient was slated to have a tunneled catheter placed for management of ascites at home to reduce her symptoms from high volume paracentesis. Dr. Loomis was to do this this coming week. Unfortunately her last paracentesis was done over 2 weeks ago at which time 13 L was removed. She obviously needs another high volume paracentesis at this time, and her ascites is obviously contributing to her poor respiratory status. Will attempt to have a paracentesis performed as soon as possible. General surgery will consult tomorrow to assess. More likely however, will wait until Interventional Radiology on Wednesday. Ultimately, plan will be for a tunneled PleurX catheter when she is medically stable on an outpatient basis. 4. Distal left femur fracture after mechanical fall Postoperative day 0. Ongoing management per Orthopedic surgery. 5. Diabetes mellitus type [address] fingersticks and sliding scale. Currently NPO due to intubated status. She is typically on 60 units of Lantus at bedtime. Will decrease that to 25 units as she is presently NPO. PLAN: Code Full Prophy Start chemical profile when approved for ortho Dispo Admit to ICU Time-Based Coding :: [TOTAL MINUTES] spent with patient and on the chart (including review of chart, obtaining history, exam, reviewing outside data, placing orders, documenting exam and treatment plan, and counseling patient) on [DATE].
[2024-09-10] MEDS: PANTOPRAZOLE 40 MG VIAL IV (08:32)
[2024-09-10] MEDS: FUROSEMIDE 40 MG/4 ML VIAL IV (08:32)
[2024-09-10 09:15] LABS: Add Manual Diff / Slide Review NO; Basophils Absolute Auto 100 /uL (0-100); Basophils Percent Auto 0.4 % (0-2); Eosinophils Absolute Auto 100 /uL (0-450); Eosinophils Percent Auto 0.5 % (2-4); Hematocrit 30.3 % (36-46); Hemoglobin 10.1 g/dL (12.0-16.0); Lymphocytes Absolute Auto 700 /uL (1100-4500); Lymphocytes Percent Auto 4.1 % (25-40); Mean Corpuscular HGB Conc 33.4 % (30-36); Mean Corpuscular Hemoglobin 29.9 PG (26-34); Mean Corpuscular Volume 89.6 fL (80-100); Monocytes Absolute Auto 1100 /uL (0-900); Monocytes Percent Auto 6.9 % (3-14); Neutrophils Absolute Auto 14400 /uL (1500-7000); Neutrophils Percent Auto 88.1 % (50-75); Platelet Count 101 X10^3/uL (150-400); Red Blood Cell Count 3.38 X10^6/uL (4.0-5.2); Red Cell Distribution Width 17.1 % (11.6-14.8); White Blood Cell Count 16.3 X10^3/uL (4.5-11.0)
[2024-09-10 09:29] LABS: BUN Creatinine Ratio 20.6 (6-22); Blood Urea Nitrogen 43 mg/dL (7-17); Carbon Dioxide 23 mmol/L (22-32); Chloride 100 mmol/L (98-107); Estimated Glomerular Filt Rate 25 mL/min (>60); Glucose 149 mg/dL (80-110); HEMOLYSIS < 15 (0-50); Sodium 129 mmol/L (137-145)
[2024-09-10 09:30] LABS: Potassium 5.8 mmol/L (3.4-5.1)
--- NOTE | 2024-09-10 09:59 | P.PN_ITS ---
Subjective Subjective Date Patient Seen: 09/10/24 Time Patient Seen: 09:59 Interval history: Notified yesterday preop as well as yesterday evening regarding this patient with an acute femur fracture, in the setting of hepatorenal failure and tense ascites requiring biweekly drainage electively. Now postop unable to extubate, concerned that ascites is influencing extubation and asking regarding the role of drainage in the urgent setting Exam Vital Signs (past 8 hours): - 09/10/24 02:00 09/10/24 02:00 09/10/24 02:30 Temperature Pulse Rate 70 70 Respiratory Rate 20 20 Blood Pressure 103/53 L Pulse Oximetry 100 100 Oxygen Delivery Method 09/10/24 02:30 09/10/24 03:00 09/10/24 03:00 Temperature Pulse Rate 69 Respiratory Rate 20 Blood Pressure 105/54 L 108/55 L Pulse Oximetry 100 Oxygen Delivery Method 09/10/24 03:30 09/10/24 03:30 09/10/24 04:00 Temperature Pulse Rate 69 Respiratory Rate 20 Blood Pressure 106/51 L Pulse Oximetry 100 Oxygen Delivery Method Mechanical Ventilation 09/10/24 04:00 09/10/24 04:00 09/10/24 04:30 Temperature Pulse Rate 69 Respiratory Rate 20 Blood Pressure 104/58 L 105/59 L Pulse Oximetry 100 Oxygen Delivery Method 09/10/24 04:30 09/10/24 05:00 09/10/24 05:00 Temperature Pulse Rate 70 69 Respiratory Rate 20 20 Blood Pressure 106/55 L Pulse Oximetry 99 99 Oxygen Delivery Method 09/10/24 05:30 09/10/24 05:30 09/10/24 06:00 Temperature Pulse Rate 71 Respiratory Rate 20 Blood Pressure 105/57 L 113/57 L Pulse Oximetry 99 Oxygen Delivery Method 09/10/24 06:00 09/10/24 07:00 09/10/24 07:00 Temperature Pulse Rate 72 73 Respiratory Rate 20 20 Blood Pressure 111/53 L Pulse Oximetry 99 97 Oxygen Delivery Method 09/10/24 07:30 09/10/24 07:30 09/10/24 08:00 Temperature Pulse Rate 71 Respiratory Rate 20 Blood Pressure 106/51 L Pulse Oximetry 99 Oxygen Delivery Method Mechanical Ventilation 09/10/24 08:00 09/10/24 08:00 09/10/24 08:30 Temperature Pulse Rate 72 71 Respiratory Rate 22 18 Blood Pressure 105/51 L Pulse Oximetry 98 99 Oxygen Delivery Method 09/10/24 08:30 09/10/24 09:00 09/10/24 09:00 Temperature 98.7 F Pulse Rate 73 Respiratory Rate 20 Blood Pressure 106/54 L Pulse Oximetry 100 Oxygen Delivery Method 09/10/24 09:01 09/10/24 09:01 09/10/24 09:30 Temperature Pulse Rate 72 69 Respiratory Rate 20 18 Blood Pressure 106/52 L Pulse Oximetry 99 99 Oxygen Delivery Method 09/10/24 09:30 Temperature Pulse Rate Respiratory Rate Blood Pressure 96/55 L Pulse Oximetry Oxygen Delivery Method Fraction of Inspired Oxygen 40 Oxygen Delivery Method Mechanical Ventilation Oxygen Flow Rate 3 Narrative Exam Narrative: Intubated, sedated Adequate lung expansion Tense distended abdomen Vent with minimal settings, AC, 40%, peep of 5, pulling 400-450 cc lung volume Objective Imaging Chest x-ray: My impression: overall small but adequate volumes, no airspace disease Radiologist's impression: [address] [address] XRay Report Signed Patient: Lita Olivia MR#: [id number] : 1950 Acct:[id number] Age/Sex: 74 / F Date of Service: 09/09/24 Loc: [facility] 227-1 Accession Number: [id number] Procedure: XR chest 1V Ordering Provider: Juni Gale MD PROCEDURE: XR CHEST 1V INDICATIONS: check endotracheal tube position TECHNIQUE: One view of the chest was acquired. COMPARISON: [facility], [place], XR CHEST 1V, 09/09/2024, 8:40. [facility], [place], XR CHEST 1V, 06/29/2024, 3:20. FINDINGS: Surgical changes and devices: Endotracheal tube in the lower trachea. Lungs and pleura: Low lung volumes. Bilateral airspace opacity, similar. No large pleural effusions or pneumothorax. Mediastinum: Mediastinal contours appear normal. Heart size appears prominent. Bones and chest wall: No suspicious bony lesions. Overlying soft tissues appear unremarkable. IMPRESSION: Endotracheal tube in the lower trachea. Lower lung volumes and bilateral airspace opacity. Dictated by: Daniel Sharma M.D. on 09/09/2024 at 20:25 Approved by: Daniel Sharma M.D. on 09/09/2024 at 20:27 Labs 09/10/24 08:33 09/10/24 08:33 Labs: Laboratory Results - last 24 hr 09/09/24 09/09/24 09/09/24 08:25 09:30 17:35 WBC RBC Hgb Hct MCV MCH MCHC RDW Plt Count Neut % (Auto) Lymph % (Auto) [place] % (Auto) Eos % (Auto) Baso % (Auto) Neut # (Auto) Lymph # (Auto) [place] # (Auto) Eos # (Auto) Baso # (Auto) PT 11.8 INR 1.0 ABG Sample Site ABG pH ABG pCO2 ABG pO2 ABG HCO3 ABG Total CO2 ABG O2 Saturation ABG Base Excess Javy Test O2 Delivery Device Mode of Support Sodium Potassium Chloride Carbon Dioxide BUN Creatinine Estimated GFR BUN/Creatinine Ratio Glucose Calcium Urine RBC 0-1/hpf Urine WBC 10-30/hpf H Ur Squamous Epith Cells 0-1 /hpf Urine Bacteria Moderate (10-30) H Urine Yeast >100/hpf Ur Culture Indicated? Specimen cultured Vol Urine Centrifuged 10ml (spun) Nasal Screen MRSA (PCR) Not detected 09/09/24 09/10/24 20:37 08:33 WBC 16.3 H D RBC 3.38 L Hgb 10.1 L Hct 30.3 L MCV 89.6 MCH 29.9 MCHC 33.4 RDW 17.1 H Plt Count 101 L Neut % (Auto) 88.1 H Lymph % (Auto) 4.1 L [place] % (Auto) 6.9 Eos % (Auto) 0.5 L Baso % (Auto) 0.4 Neut # (Auto) 59915 H Lymph # (Auto) 700 L [place] # (Auto) 1100 H Eos # (Auto) 100 Baso # (Auto) 100 PT INR ABG Sample Site Left radial ABG pH 7.22 L* ABG pCO2 67.6 H* ABG pO2 34 L* ABG HCO3 28 H ABG Total CO2 28 H ABG O2 Saturation 52 L* ABG Base Excess -1.2 Javy Test Positive O2 Delivery Device Adult ventilator Mode of Support Assist cont ventilat Sodium 129 L Potassium 5.8 H Chloride 100 Carbon Dioxide 23 BUN 43 H Creatinine 2.09 H Estimated GFR 25 L BUN/Creatinine Ratio 20.6 Glucose 149 H D Calcium 8.0 L Urine RBC Urine WBC Ur Squamous Epith Cells Urine Bacteria Urine Yeast Ur Culture Indicated? Vol Urine Centrifuged Nasal Screen MRSA (PCR) PFSH Medical History Hypertension Hypothyroidism ESRD (end stage renal disease) Depressive disorder Diabetes Social History marital status: household members: spouse Smoking Status: Current every day smoker Tobacco: How many years used: 56 alcohol intake: never Assessment & Plan Assessment & Plan narrative: Patient with a femur fracture (now post ORIF) , in the setting of hepatorenal failure and tense ascites. -regarding the ventilator and the role for drainage of ascites -I do not currently think that her ascites is meaningfully impairing her ability to extubate- ie. I don't think she will extubate even with some drainage -Her underlying hypoxia and hypercapnia may be a larger contributor -she is pulling adequate lung volumes to oxygenate. -worsening hepatorenal failure -creatinine bump, K now 5.8 -patient will benefit from dialysis both for potassium management as well as for fluid managment -DVT prohylaxsis for managmetn of traumatic frature- recommend heparin 5000SQ TID -recommend initiation of nutrition early Overall recommend transfer to facility with nephrology capability. D/W Hospitalist (primary physician) who will proceed with that plan. Time-Based Coding :: [TOTAL MINUTES] spent with patient and on the chart (including review of chart, obtaining history, exam, reviewing outside data, placing orders, documenting exam and treatment plan, and counseling patient) on [DATE]. 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
--- NOTE | 2024-09-10 10:27 | PT-IP ANOTE ---
Pt discussed in rounds. Pt intubated and WBCs increasing per labs. clears to d/c therapy orders at this time.
--- NOTE | 2024-09-10 10:27 | PC.NURSE ---
Addendum entered by Aby Bowen R.N. 09/10/24 14:35: Able to visualize back and buttocks, no noteable skin issues. Transport arrived at 1400, transported to stretcher, monitor, and transport ventilator without issue. Report given to Tristen at [facility]. Spouse Jose Martin at bedside, given information on where pt is being transferred to. Pt left to [facility] with regional transportation manager and EMS at approximately 1425. Addendum entered by Aby Bowen R.N. 09/10/24 12:08: OG attempted twice by this RN, NG attempted without success. Other RN attempted without success. Provider notified. Care ongoing. Original Note: 07:45 Pt arousable to voice, able to make eye contact and track, able to answer yes and no questions by shaking head. Abdomen distended, large, round, and firm. New lab results relayed to provider. Attempted to roll pt on side to assess buttocks and back, abdomen so large causing difficulty in turning to side completely. Able to visualize left side of back and buttock, no issues noted.
[2024-09-10] MEDS: MORPHINE 2 MG/ML INJ IV (10:47)
--- NOTE | 2024-09-10 11:01 | DI.RAD.S_ITS ---
PROCEDURE: XR CHEST 1V INDICATIONS: OG placement TECHNIQUE: One view of the chest was acquired. COMPARISON: [facility], CR, XR CHEST 1V, 09/09/2024, 19:53. [facility], CR, XR CHEST 1V, 09/09/2024, 8:40. FINDINGS: Surgical changes and devices: Endotracheal tube tip projects 5.7 cm above the meaghan. Feeding tube likely passes below the diaphragm. Lungs and pleura: Lungs are clear. No pleural effusions or pneumothorax. Mediastinum: Mediastinal contours appear normal. Heart size is normal. Bones and chest wall: No suspicious bony lesions. Overlying soft tissues appear unremarkable. IMPRESSION: Gastric tube likely passes below the diaphragm, although evaluation is limited due to body habitus. Dictated by: Jose Chandler M.D. on 09/10/2024 at 11:49 Approved by: Jose Chandler M.D. on 09/10/2024 at 11:49
[2024-09-10] MEDS: CEFEPIME 2 GM in SODIUM CHLORIDE 0.9% 100 ML IV (11:47)
--- NOTE | 2024-09-10 11:54 | P.PN_ITS ---
Subjective Subjective Interval history: She has a known history of substantial ascites. She could not be extubated yesterday because of her significant ascites. She was ventilated overnight. She is currently on the Medicine Service. There has been some worsening of her kidney function. They feel that she is best served by being transferred to a higher level of care. She was resting comfortably in bed and has not required much pain medication. Exam Vital Signs (past 8 hours): - 09/10/24 04:00 09/10/24 04:00 09/10/24 04:00 Temperature Pulse Rate 69 Respiratory Rate 20 Blood Pressure 104/58 L Pulse Oximetry 100 Oxygen Delivery Method Mechanical Ventilation 09/10/24 04:30 09/10/24 04:30 09/10/24 05:00 Temperature Pulse Rate 70 Respiratory Rate 20 Blood Pressure 105/59 L 106/55 L Pulse Oximetry 99 Oxygen Delivery Method 09/10/24 05:00 09/10/24 05:30 09/10/24 05:30 Temperature Pulse Rate 69 71 Respiratory Rate 20 20 Blood Pressure 105/57 L Pulse Oximetry 99 99 Oxygen Delivery Method 09/10/24 06:00 09/10/24 06:00 09/10/24 07:00 Temperature Pulse Rate 72 73 Respiratory Rate 20 20 Blood Pressure 113/57 L Pulse Oximetry 99 97 Oxygen Delivery Method 09/10/24 07:00 09/10/24 07:30 09/10/24 07:30 Temperature Pulse Rate 71 Respiratory Rate 20 Blood Pressure 111/53 L 106/51 L Pulse Oximetry 99 Oxygen Delivery Method 09/10/24 08:00 09/10/24 08:00 09/10/24 08:00 Temperature Pulse Rate 72 Respiratory Rate 22 Blood Pressure 105/51 L Pulse Oximetry 98 Oxygen Delivery Method Mechanical Ventilation 09/10/24 08:30 09/10/24 08:30 09/10/24 09:00 Temperature 98.7 F Pulse Rate 71 Respiratory Rate 18 Blood Pressure 106/54 L Pulse Oximetry 99 Oxygen Delivery Method 09/10/24 09:00 09/10/24 09:01 09/10/24 09:01 Temperature Pulse Rate 73 72 Respiratory Rate 20 20 Blood Pressure 106/52 L Pulse Oximetry 100 99 Oxygen Delivery Method 09/10/24 09:30 09/10/24 09:30 09/10/24 10:00 Temperature 97.9 F Pulse Rate 69 Respiratory Rate 18 Blood Pressure 96/55 L 102/54 L Pulse Oximetry 99 Oxygen Delivery Method 09/10/24 10:00 09/10/24 10:30 Temperature Pulse Rate 68 75 Respiratory Rate 18 22 Blood Pressure Pulse Oximetry 99 93 Oxygen Delivery Method Fraction of Inspired Oxygen 40 Oxygen Delivery Method Mechanical Ventilation Oxygen Flow Rate 3 Narrative Exam Narrative: Resting comfortably in bed on a ventilator, sedated, left knee immobilizer in place, mild swelling in the left lower extremity foot is warm with some capillary refill Objective Labs 09/10/24 08:33 09/10/24 08:33 Labs: Laboratory Results - last 24 hr 09/09/24 09/09/24 09/10/24 17:35 20:37 08:33 WBC 16.3 H D RBC 3.38 L Hgb 10.1 L Hct 30.3 L MCV 89.6 MCH 29.9 MCHC 33.4 RDW 17.1 H Plt Count 101 L Neut % (Auto) 88.1 H Lymph % (Auto) 4.1 L [place] % (Auto) 6.9 Eos % (Auto) 0.5 L Baso % (Auto) 0.4 Neut # (Auto) 03504 H Lymph # (Auto) 700 L [place] # (Auto) 1100 H Eos # (Auto) 100 Baso # (Auto) 100 ABG Sample Site Left radial ABG pH 7.22 L* ABG pCO2 67.6 H* ABG pO2 34 L* ABG HCO3 28 H ABG Total CO2 28 H ABG O2 Saturation 52 L* ABG Base Excess -1.2 Javy Test Positive O2 Delivery Device Adult ventilator Mode of Support Assist cont ventilat Sodium 129 L Potassium 5.8 H Chloride 100 Carbon Dioxide 23 BUN 43 H Creatinine 2.09 H Estimated GFR 25 L BUN/Creatinine Ratio 20.6 Glucose 149 H D Calcium 8.0 L Nasal Screen MRSA (PCR) Not detected [facility] Medical History Hypertension Hypothyroidism ESRD (end stage renal disease) Depressive disorder Diabetes Social History marital status: household members: spouse Smoking Status: Current every day smoker Tobacco: How many years used: 56 alcohol intake: never Assessment & Plan Post-op Postoperative Procedures: Procedures Operation Date: 09/09/24 13:30 Actual Procedure Side Surgeon p ORIF Distal Femur Fracture [place] Card MD Postoperative day: 1 Postoperative status: other (Multiple medical problems including ascites with liver failure and slight worsening renal function) Postoperative status narrative: She is stable from her fracture standpoint. She has a knee immobilizer on. It is okay to go ahead and mobilize her out of bed to a chair when her pulmonary and overall medical status allows. She is in the process of being transferred to a higher level of care because of concerns regarding her liver failure and slight worsening kidney function. She is overdue for her paracentesis. She was on a schedule where she was getting a drainage about every 2 weeks she is now in about 2-1/2 weeks out. This is likely contributing to difficulty with ventilating her. Orthopedically she can be partial weight-bearing to 50 lb on the left lower extremity when her medical status allows mobilization.
[2024-09-10] MEDS: ALBUMIN HUMAN 12.5 GM/50 ML VIAL IV (12:42)
--- NOTE | 2024-09-10 12:51 | PM.PN.EICU ---
Subjective Subjective IF CAMERA ACTIVATED, patient seen via real-time interactive audiovisual communication: Camera activated Consent obtained for tele-psych sales specialist care: Yes Patient Location: ICU Provider location (State): [place] Other participants/roles: rn Interval history: pt remians intubate this AM, pending paracentesis today by HM Current Medications Current Medications Medications: Home Medications albuterol sulfate 90 mcg/actuation aerosol inhaler (ProAir HFA) 2 puff inhalation DAILY PRN Wheezing 07/07/23 [History Confirmed 09/09/24] tiotropium bromide 1.25 mcg/actuation mist for inhalation (Spiriva Respimat) 2 puff inhalation DAILY 07/07/23 [History Confirmed 09/09/24] furosemide 40 mg tablet (Lasix) 40 mg PO BID #10 tabs 08/14/23 [Rx Confirmed 09/09/24] blood sugar diagnostic (Choister Test Strip) #50 ea 12/02/23 [Rx Confirmed 09/09/24] blood-glucose meter (Choister Glucose Monitoring System kit) #1 ea 12/02/23 [Rx Confirmed 09/09/24] insulin glargine 100 unit/mL (3 mL) subcutaneous pen (Lantus Solostar U-100 Insulin) 60 unit SUBCUT ONCE HS 06/29/24 [History Confirmed 09/09/24] levothyroxine 175 mcg tablet (Synthroid) 175 mcg PO 0600 #30 tabs 06/30/24 [Rx Confirmed 09/09/24] doxepin 10 mg capsule 20 mg PO ONCE PM 09/04/24 [History Confirmed 09/09/24] empagliflozin 10 mg tablet (Jardiance) 10 mg PO DAILY 09/04/24 [History Confirmed 09/09/24] pregabalin 50 mg capsule 100 mg PO DAILY 09/04/24 [History Confirmed 09/09/24] empagliflozin 10 mg tablet (Jardiance) 10 mg PO DAILY 09/09/24 [History Confirmed 09/09/24] sitagliptin phosphate 50 mg tablet (Januvia) 50 mg PO DAILY 09/09/24 [History Confirmed 09/09/24] Visit Medications (administered) Generic Name Dose Route Start Last Admin Trade Name Freq PRN Reason Stop Dose Admin Chlorhexidine Gluconate 15 ml 09/09/24 18:00 09/10/24 12:44 Chlorhexidine Gluconate 15 Ml Cup PO 15 ml Q6HR ELIAN Administration Furosemide 40 mg 09/09/24 21:00 09/10/24 08:32 Furosemide 40 Mg/4 Ml Vial IV 40 mg BID ELIAN Administration Propofol 1,000 mg in 100 mls @ 4.119 mls/hr 09/09/24 17:30 09/10/24 06:54 Diprivan IV 6 mcg/kg/min TITRATE ELIAN 4.943 mls/hr Titration Protocol 5 MCG/KG/MIN Lactated Ringer's 1,000 mls @ 50 mls/hr 09/09/24 17:45 09/10/24 01:44 Lactated Ringers IV 100 mls/hr CONT ELIAN Administration Cefepime HCl 2 gm/ Sodium 100 mls @ 200 mls/hr 09/10/24 10:00 09/10/24 11:47 Chloride IV 200 mls/hr DAILY ELIAN Administration Insulin Glargine 25 unit 09/09/24 21:00 09/09/24 21:06 Insulin Glargine 100 Unit/Ml 3ml Pen SUBCUT 25 unit BEDTIME ELIAN Administration Insulin Human Lispro 0 unit 09/09/24 17:45 09/10/24 12:43 Insulin Lispro 100 Unit/Ml 3ml Vial SUBCUT 2 unit Q6H ELIAN Administration Protocol Morphine Sulfate 2 mg 09/10/24 09:12 09/10/24 10:47 Morphine 2 Mg/Ml Inj IV 2 mg Q2HR PRN Administration Pain, Moderate (4-6) Nicotine 7 mg 09/10/24 09:00 09/10/24 11:14 Nicotine 7 Mg Patch TOP Not Given DAILY [facility] Pantoprazole Sodium 40 mg 09/10/24 09:00 09/10/24 08:32 Pantoprazole 40 Mg Vial IV 40 mg DAILY ELIAN Administration Objective Ventilator Parameters: Ventilator Settings FiO2 35 RT Vent Frequency 18 Ventilator Tidal Volume 440 Exhaled Positive End Expiratory 5 Pressure Inspiratory Phase Time 0.8 I:E Ratio 1:2 Patient Position HOB >= 30 degrees Labs 09/10/24 08:33 09/10/24 08:33 Labs: Laboratory Results - last 24 hr 09/09/24 09/09/24 09/10/24 17:35 20:37 08:33 WBC 16.3 H D RBC 3.38 L Hgb 10.1 L Hct 30.3 L MCV 89.6 MCH 29.9 MCHC 33.4 RDW 17.1 H Plt Count 101 L Neut % (Auto) 88.1 H Lymph % (Auto) 4.1 L [place] % (Auto) 6.9 Eos % (Auto) 0.5 L Baso % (Auto) 0.4 Neut # (Auto) 54456 H Lymph # (Auto) 700 L [place] # (Auto) 1100 H Eos # (Auto) 100 Baso # (Auto) 100 ABG Sample Site Left radial ABG pH 7.22 L* ABG pCO2 67.6 H* ABG pO2 34 L* ABG HCO3 28 H ABG Total CO2 28 H ABG O2 Saturation 52 L* ABG Base Excess -1.2 Javy Test Positive O2 Delivery Device Adult ventilator Mode of Support Assist cont ventilat Sodium 129 L Potassium 5.8 H Chloride 100 Carbon Dioxide 23 BUN 43 H Creatinine 2.09 H Estimated GFR 25 L BUN/Creatinine Ratio 20.6 Glucose 149 H D Calcium 8.0 L Nasal Screen MRSA (PCR) Not detected Exam Vital Signs (past 8 hours): - 09/10/24 05:00 09/10/24 05:00 09/10/24 05:30 Temperature Pulse Rate 69 71 Respiratory Rate 20 20 Blood Pressure 106/55 L Pulse Oximetry 99 99 Oxygen Delivery Method 09/10/24 05:30 09/10/24 06:00 09/10/24 06:00 Temperature Pulse Rate 72 Respiratory Rate 20 Blood Pressure 105/57 L 113/57 L Pulse Oximetry 99 Oxygen Delivery Method 09/10/24 07:00 09/10/24 07:00 09/10/24 07:30 Temperature Pulse Rate 73 71 Respiratory Rate 20 20 Blood Pressure 111/53 L Pulse Oximetry 97 99 Oxygen Delivery Method 09/10/24 07:30 09/10/24 08:00 09/10/24 08:00 Temperature Pulse Rate 72 Respiratory Rate 22 Blood Pressure 106/51 L Pulse Oximetry 98 Oxygen Delivery Method Mechanical Ventilation 09/10/24 08:00 09/10/24 08:30 09/10/24 08:30 Temperature Pulse Rate 71 Respiratory Rate 18 Blood Pressure 105/51 L 106/54 L Pulse Oximetry 99 Oxygen Delivery Method 09/10/24 09:00 09/10/24 09:00 09/10/24 09:01 Temperature 98.7 F Pulse Rate 73 72 Respiratory Rate 20 20 Blood Pressure Pulse Oximetry 100 99 Oxygen Delivery Method 09/10/24 09:01 09/10/24 09:30 09/10/24 09:30 Temperature Pulse Rate 69 Respiratory Rate 18 Blood Pressure 106/52 L 96/55 L Pulse Oximetry 99 Oxygen Delivery Method 09/10/24 10:00 09/10/24 10:00 09/10/24 10:30 Temperature 97.9 F Pulse Rate 68 75 Respiratory Rate 18 22 Blood Pressure 102/54 L Pulse Oximetry 99 93 Oxygen Delivery Method 09/10/24 12:00 Temperature Pulse Rate Respiratory Rate Blood Pressure Pulse Oximetry Oxygen Delivery Method Mechanical Ventilation Fraction of Inspired Oxygen 40 Oxygen Delivery Method Mechanical Ventilation Oxygen Flow Rate 3 Narrative Exam Narrative: intubate dsedated symmetric chest rise rate controlled Assessment & Plan Assessment and plan (1) Femoral distal fracture: Qualifiers: Encounter type: initial encounter Fracture morphology: other fracture Fracture type: closed Laterality: unspecified laterality Qualified Code(s): S72.499A - Other fracture of lower end of unspecified femur, initial encounter for closed fracture Status: Acute Plan: -As per ortho (2) Cirrhosis of liver: Qualifiers: Hepatic cirrhosis type: unspecified hepatic cirrhosis Ascites presence: with ascites Qualified Code(s): K74.60 - Unspecified cirrhosis of liver; R18.8 - Other ascites Status: Acute Plan: -Paracentesis as soon as feasible -Decrease IVF rate - send for fluid analysis when drained (3) COPD (chronic obstructive pulmonary disease): Qualifiers: COPD type: chronic bronchitis Status: Acute Plan: -PRN Duonebs (4) On mechanically assisted ventilation: Status: Acute Plan: vent/sedation bundle cont profpofol trend abg (5) Diabetes: Qualifiers: Diabetes mellitus type: type 2 Diabetes mellitus long term care pharmacist insulin use: with long term care pharmacist use Status: Acute Plan: -Correctional insulin (6) Acute UTI: Status: Acute Plan: spiking fver will start cefepime also send ascitic fluid of cx and cell coutn Time-Based Coding :: total critical care time = 35 min
--- NOTE | 2024-09-10 13:14 | DI.RAD.S_ITS ---
PROCEDURE: XR CHEST FOR PICC 1V INDICATIONS: PICC placement TECHNIQUE: One view of the chest was acquired. COMPARISON: [facility], CR, XR CHEST 1V, 09/10/2024, 11:07. [facility], CR, XR CHEST 1V, 09/09/2024, 19:53. FINDINGS: Surgical changes and devices: Endotracheal tube tip projects over the midthoracic trachea. Left upper extremity approach PICC tip projects over the cavoatrial junction. Lungs and pleura: Increased pulmonary markings. Probable small effusions. Perihilar opacities. Mediastinum: Mediastinal contours appear normal. Heart size is enlarged. Bones and chest wall: No suspicious bony lesions. Overlying soft tissues appear unremarkable. IMPRESSION: PICC tip projects over the cavoatrial junction. Moderate to severe pulmonary edema. Dictated by: Jose Chandler M.D. on 09/10/2024 at 13:40 Approved by: Jose Chandler M.D. on 09/10/2024 at 13:41
--- NOTE | 2024-09-10 13:15 | CM.IDA ---
Initial Brief DCP Assessment Patient is 74 y/o female who resides in [place] who presented to the ED via EMS due to concern for GLF. Patient has hc of nonalcoholic cirrhosis with ascites and frequent paracentesis. 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 Patient is currently intubated. Patient was admitted by hospitalist Dr. Woodard due to concern for femoral distal fracture and hyperammonemia. Patient had orthopedic surgery with Dr. Card yesterday and was transferred to ICU afterwards requiring intubation. Patient's PCP is Rogers Iglesias, patient has [facility] and [employer] insurance. Per EMR, patient receives assistance from spouse at home for chores, meal prep and other ADLs as needed, patient uses [facility] as needed. Patient has hx of [facility] and was discharged in 2024 with continued [facility] referral. Due to patient's higher level of care needs she is being transferred to [facility] this afternoon. Plan: patient to transfer to [facility], [facility] DCP to f/u with POC. RUDDY Lott Discharge Planning/Care Management CM Discharge Assessment Start: 09/10/24 13:04 Freq: Status: Active Protocol: Document 09/10/24 13:04 LN (Rec: 09/10/24 13:12 LN [id number]) Discharge Planning Assessment Assigned Small Lot Operator RUDDY Sifuentes Contact Information [phone] cell [phone] home Advance Directives? No History Provided By Medical Record Has Patient been admitted in last 30 No days? Household Members spouse Independent with ADL's No Is patient alert and oriented? Yes Needs Assistance With Bathing,Grooming,Meal Prep, Managing Medications,Home Chores / Shopping Community Services used prior to Physical Therapy,Home Health admission: Aid,Home Health Nurse Comment Patient has hx of [facility], recent referral in Jun 2024. DME Already Rented / Owned [facility] / Walker Comment Patient to be transferred to [facility] this afternoon. Comment Patient's spouse works M-F, time analysis clerk at [employer]. Patient reports needing assist at baseline and would like to have a caregiver a few hours daily but cannot afford to pay privately. Resources provided . therapies ordered. Discharge Plan Transfer to Higher Level of Care Referrals Initiated None needed
[2024-09-10] MEDS: SODIUM POLYSTYRENE SULFON/SORB 15 GM/60 ML CUP 30 GM PR (13:24)
--- NOTE | 2024-09-10 17:24 | PM.DS.1 ---
History of Present Illness History of Present Illness Chief complaint: Fall Narrative: From H&P: 74-year-old female with end-stage liver disease with cirrhosis, COPD with current tobacco dependence, hypertension, hypothyroidism, diabetes mellitus type 2 who presented to the emergency department this morning after a trip and fall and was found to have a comminuted L distal femur fx. She is presently receiving high volume paracenteses via Interventional Radiology approximately every 2 weeks and is scheduled to undergo PleurX tunneled catheter placement and this coming week with Dr. Loomis. Her most recent paracentesis was performed on August 23 with 13 L removed. Prior to that, 11.5 L was removed August 09, 12.3 L on July 26, and 11.7 L on July 12. She was scheduled for a paracentesis on 09/06/2024, but it was not done for unclear reasons. Due to her distal femur fracture, and concerns about her significant tense ascites, anesthesia did contact General surgery today prior to her femur fracture repair to discuss possibility of a paracentesis today preoperatively. However, general surgery felt that doing a paracentesis would increase risk of the hole from the paracentesis having ongoing leakage. Patient subsequently went to the OR where the fracture repair went without significant complication. However postoperatively, patient could not be extubated secondary to ongoing failure of her spontaneous breathing trial. Her end-tidal CO2 was up to 76, she required 70% FiO2, and her O2 saturation was 91%. It was felt that her tense ascites was a significant contributor to her failure to be able to be extubated. She is now admitted to the intensive care unit. Discharge Providers Provider Date of admission: 09/09/24 13:57 Discharge Date: 09/10/24 Primary care physician: Rogers Iglesias DO Consults: 09/09/24 17:22 Consult to Discharge Planning Routine Comment: Consult to Occupational Therapy Evaluate & Treat Comment: Physician Instructions: Evaluate and treat Consult to Physical Therapy Evaluate & Treat Comment: 50 lbs max left lower extremity, knee immobilizer Physician Instructions: Evaluate and Treat 09/09/24 17:28 Consult to Tele-reliability technician Routine Comment: Consulting Provider: Enedelia Tele-intensivists Reason for consultation: Advertising Account Manager services, vented patient 09/10/24 09:24 Consult After Hours PICC Line RN Routine Comment: Discharge provider: Javy Pablo MD Summary Hospital Course Discharge Diagnosis: 1. Hypoxic respiratory failure, on ventilator. New and active. 2. Hyperkalemia secondary to DELANEY, new and active. 3. DELANEY with concern for hepatorenal syndrome, new and active. 4. Serrano with cirrhosis, present on admission and active. 5. Gross ascites, present on admission and active. 6. Morbid obesity, present on admission and active. Hospital Course: She presented with a femur fracture underwent surgical repair on September 09. The patient could not be extubated in the postoperative phase and Medicine was consulted. There was a request for paracentesis and surgery was involved. They declined stating that the patient was not medically stable. The patient remained on the ventilator overnight and in the morning of the had persistent ascites. We are prepping to perform a low volume paracentesis to improve ventilation status when labs came back indicating hyperkalemia and a acute kidney injury. Discussed the case with intensive care at [address] as well as our general surgeon. Also discussed the case with our orthopedist, Dr. Card. Ultimately, it was felt that the patient would be best served with a transfer on the ventilator to pursue treatment for possible hepatorenal syndrome. The general plan would be sequential low volume paracentesis, pressors support, and extubation attempts. The patient was family was on site when these decisions were being made and were in agreement with the general clinical course. There was also the possibility the patient will require transient hemodialysis if her DELANEY worsens or fails to improve. She was already demonstrating some elements of oliguria. A PICC line was placed for access prior to transfer. The patient was also given albumin per request from the ICU physician at [facility]. There was no time to perform a low volume paracentesis given the PICC line access and early availability of a bed at [facility]. Time Spent with Patient Time spent: Greater than 30 minutes Exam Vital Signs (past 8 hours): - 09/10/24 09:30 09/10/24 09:30 09/10/24 10:00 Temperature 97.9 F Pulse Rate 69 Respiratory Rate 18 Blood Pressure 96/55 L 102/54 L Pulse Oximetry 99 Oxygen Delivery Method 09/10/24 10:00 09/10/24 10:30 09/10/24 11:00 Temperature Pulse Rate 68 75 79 Respiratory Rate 18 22 18 Blood Pressure Pulse Oximetry 99 93 93 Oxygen Delivery Method 09/10/24 11:00 09/10/24 11:30 09/10/24 11:31 Temperature Pulse Rate 82 Respiratory Rate 26 H Blood Pressure 114/54 L 103/51 L Pulse Oximetry 95 Oxygen Delivery Method 09/10/24 11:31 09/10/24 12:00 09/10/24 12:00 Temperature Pulse Rate 84 75 Respiratory Rate 23 18 Blood Pressure Pulse Oximetry 94 93 Oxygen Delivery Method Mechanical Ventilation 09/10/24 12:00 09/10/24 12:30 09/10/24 12:30 Temperature Pulse Rate 71 Respiratory Rate 18 Blood Pressure 115/59 L 108/51 L Pulse Oximetry 92 Oxygen Delivery Method 09/10/24 13:00 09/10/24 13:00 09/10/24 13:30 Temperature 97.8 F Pulse Rate 70 73 Respiratory Rate 18 18 Blood Pressure 108/51 L Pulse Oximetry 96 95 Oxygen Delivery Method 09/10/24 13:30 09/10/24 14:00 09/10/24 14:00 Temperature 98.0 F Pulse Rate 75 Respiratory Rate 21 Blood Pressure 115/59 L 118/56 L Pulse Oximetry 94 Oxygen Delivery Method Fraction of Inspired Oxygen 40 Oxygen Delivery Method Mechanical Ventilation Oxygen Flow Rate 3 Narrative Exam Narrative: Patient is sedated Patient is on the ventilator, OG tube in place. Mendoza catheter in place. Lungs are clear. Heart is regular. Abdomen is distended with gross ascites. Extremities are free of edema. Skin is free of rash or lesions. Joints are not swollen or deformed. Objective Imaging Multiple studies:: Radiologist's impression: Chest x-rays: PICC tip projects over the cavoatrial junction. Moderate to severe pulmonary edema. Femur x-ray: Labs 09/10/24 08:33 09/10/24 08:33 Labs: Laboratory Results - last 24 hr 09/09/24 09/09/24 09/10/24 17:35 20:37 08:33 WBC 16.3 H D RBC 3.38 L Hgb 10.1 L Hct 30.3 L MCV 89.6 MCH 29.9 MCHC 33.4 RDW 17.1 H Plt Count 101 L Neut % (Auto) 88.1 H Lymph % (Auto) 4.1 L [place] % (Auto) 6.9 Eos % (Auto) 0.5 L Baso % (Auto) 0.4 Neut # (Auto) 27554 H Lymph # (Auto) 700 L [place] # (Auto) 1100 H Eos # (Auto) 100 Baso # (Auto) 100 ABG Sample Site Left radial ABG pH 7.22 L* ABG pCO2 67.6 H* ABG pO2 34 L* ABG HCO3 28 H ABG Total CO2 28 H ABG O2 Saturation 52 L* ABG Base Excess -1.2 Javy Test Positive O2 Delivery Device Adult ventilator Mode of Support Assist cont ventilat Sodium 129 L Potassium 5.8 H Chloride 100 Carbon Dioxide 23 BUN 43 H Creatinine 2.09 H Estimated GFR 25 L BUN/Creatinine Ratio 20.6 Glucose 149 H D Calcium 8.0 L Nasal Screen MRSA (PCR) Not detected PFSH Medical History Hypertension Hypothyroidism ESRD (end stage renal disease) Depressive disorder Diabetes Social History marital status: household members: spouse Smoking Status: Current every day smoker Tobacco: How many years used: 56 alcohol intake: never Discharge Assessment & Plan Assessment and Plan Assessment: 1. Hypoxic respiratory failure, on ventilator. New and active. 2. Hyperkalemia secondary to DELANEY, new and active. 3. DELANEY with concern for hepatorenal syndrome, new and active. Plan of Treatment: Transfer ACLS to [address] intensive care for further evaluation and monitoring. Discharge Plan Discharge Plan Patient Disposition: [facility] Discharge Data Primary Care Provider: Rogers Iglesias
== END 2024-09-10 14:25 | disposition short-term general hospital (02) | DRG 480 ==
LOC: ED 12:36 → AC 13:58 → ICU 17:44
PROVIDERS: Orthopaedic Surgery; Admitting Provider Family Medicine; Emergency Provider Emergency Medicine; PCP Family Medicine; Referring Provider Emergency Medicine; Visit Provider Family Medicine
PROC: 0QSC04Z Reposition Left Lower Femur with Internal Fixation Device, Open Approach (ICD-10-PCS; CPT 27514; principal; 2024-09-09 13:30)
DX: S72.452A Displaced supracondylar fracture without intracondylar extension of lower end of left femur, initial encounter for closed fracture (principal); J96.01 Acute respiratory failure with hypoxia; K76.7 Hepatorenal syndrome; E72.20 Disorder of urea cycle metabolism, unspecified; R18.8 Other ascites; N39.0 Urinary tract infection, site not specified; N17.9 Acute kidney failure, unspecified; Z68.43 Body mass index [BMI] 50.0-59.9, adult; N18.4 Chronic kidney disease, stage 4 (severe); F17.200 Nicotine dependence, unspecified, uncomplicated; K72.10 Chronic hepatic failure without coma; K74.60 Unspecified cirrhosis of liver; K75.81 Nonalcoholic steatohepatitis (NASH); E11.22 Type 2 diabetes mellitus with diabetic chronic kidney disease; J44.89 Other specified chronic obstructive pulmonary disease; E87.5 Hyperkalemia; E66.01 Morbid (severe) obesity due to excess calories; E03.9 Hypothyroidism, unspecified; F32.A Depression, unspecified; I12.9 Hypertensive chronic kidney disease with stage 1 through stage 4 chronic kidney disease, or unspecified chronic kidney disease; W01.0XXA Fall on same level from slipping, tripping and stumbling without subsequent striking against object, initial encounter; Z79.84 Long term (current) use of oral hypoglycemic drugs; Z79.4 Long term (current) use of insulin; Z79.890 Hormone replacement therapy
CPT/HCPCS: 36415; 36600; 71045; 73502; 73552; 73560; 73564; 76000; 80048; 80053; 81001; 82009; 82140; 82805; 82962; 83690; 85025; 85610; 87040; 87077; 87086; 87797; 94002; 94003; 94640; 94799; 96372; 96374; 96375; 96376; 99284; J0666; J0690; J0692; J1171; J1815; J1940; J2270; J2405; J2470; J2704; J3010; P9041